=== PATIENT | male | born 1950 | race Caucasian/White ===

== ENCOUNTER → 2017-03-14 18:50 | Outpatient (CLI) | payer MEDICARE ==
[2016-10-05 11:31] VITALS: BMI 45.5
[~2017-03-14 18:50] MED LIST: ASCORBIC ACID500 MG PO; BAYER CHEWABLE81 MG PO; CHROMIUM PICO200 MC1; CITRATE OF MAG300 ML PO; CO Q-10100 MG PO; COLACE100 MG PO; GAS-X125 M1; GLYCERIN A1 SUPP.REC RC; GLYCOLAX527 GM PO; HYDROCHLOROTH12.5 M1 PO; HYDROCODONE-APA1 TAB PO; LASIX40 MG PO; LISINOPRIL5 MG PO; METOLAZONE2.5 MG PO; METOPROLOL TART50 MG; NIACIN500 MG PO; NORVASC10 MG PO; NORVASC5 MG PO; NOVOLIN 70/30 110 ML; PRAVACHOL20 MG PO; PREVACID30 MG PO; STOOL SOFTENER250 MG PO; TOPROL XL50 MG PO; VITAMIN D2000 UNIT PO; ZANTAC150 MG PO; ZESTRIL40 MG PO; ZYLOPRIM300 MG PO
[2017-03-14 19:54] LABS: ANION GAP 13.4 mmol/L (8-16); CALCIUM 9.8 mg/dL (8.5-10.1); CARBON DIOXIDE 27.2 mmol/L (21.0-32.0); CREATININE - SERUM 2.2 mg/dL (0.6-1.3); POTASSIUM - SERUM 4.6 mmol/L (3.5-5.1)
== END | disposition home or self-care (01) ==
LOC: D.LABREF 18:50
PROVIDERS: Internal Medicine Cardiovascular Disease
DX: I10 Essential (primary) hypertension (principal)

== ENCOUNTER 2017-03-23 12:21 | Inpatient (IN) | payer MEDICARE ==
[~2017-03-23] VITALS: Ht 180.3 cm; Wt 147.0 kg
[2017-03-23 13:23] LABS: BASOPHILS 0.4 % (0-2); EOSINOPHILS 1.5 % (0-7); HEMATOCRIT 41.3 % (42.0-54.0); HEMOGLOBIN 14.2 g/dL (13.5-17.5); IMMATURE GRANULOCYTES 3.1 % (0-5); MCH 32.7 pg (26.0-34.0); MCHC 34.4 g/dL (31.0-37.0); MCV 95.2 fL (80.0-100.0); MEAN PLATELET VOLUME 9.8 fL (7.4-10.4); MONOCYTES 9.1 % (2-11); NEUTROPHILS 70.9 % (40-80); PLATELET COUNT 197 10x3/uL (130-400); RBC 4.34 10x6/uL (4.20-6.10); RDW 15.1 % (11.5-14.5); WBC 14.7 10x3/uL (4.8-10.8)
[2017-03-23 13:35] LABS: ALBUMIN 3.4 g/dL (3.4-5.0); ANION GAP 15.4 mmol/L (8-16); CARBON DIOXIDE 24.8 mmol/L (21.0-32.0); CREATININE - SERUM 2.5 mg/dL (0.6-1.3); POTASSIUM - SERUM 4.2 mmol/L (3.5-5.1); PROTEIN - SERUM 7.7 g/dL (6.4-8.2)
[2017-03-23 17:45] LABS: APPEARANCE CLEAR (CLEAR); BILIRUBIN NEGATIVE (NEGATIVE); COLOR YELLOW (YELLOW); GLUCOSE NEGATIVE (NEGATIVE); KETONE NEGATIVE (NEGATIVE); LEUKOCYTE ESTERASE 1+ (NEGATIVE); NITRITE NEGATIVE (NEGATIVE); PROTEIN NEGATIVE (NEGATIVE); SPECIFIC GRAVITY 1.015 (1.005-1.020); UROBILINOGEN NORMAL (NORMAL)
[2017-03-23 17:47] LABS: BACTERIA NONE SEEN /hpf (NONE SEEN); EPITHELIAL CELLS 0-5 /hpf (0-5); RED CELLS - URINE NONE SEEN /hpf (0-5); WHITE CELLS - URINE 0-5 /hpf (0-5)
[2017-03-23 18:15] LABS: MAGNESIUM - SERUM 2.4 mg/dL (1.8-2.4)
[2017-03-23 19:31] LABS: ANION GAP 15.8 mmol/L (8-16); CALCIUM 9.9 mg/dL (8.5-10.1); CARBON DIOXIDE 24.2 mmol/L (21.0-32.0); CREATININE - SERUM 2.7 mg/dL (0.6-1.3)
[2017-03-23 20:00] VITALS: BP 118/67
[2017-03-23 22:45] VITALS: BP 118/67; BMI 44.7
[2017-03-24] VITALS: BP 108/66
[2017-03-24 04:00] VITALS: BP 127/69
--- NOTE | 2017-03-24 07:50 | NUR ---
PT AOX4 RESP EVEN AND NONLABORED PT DENIES NEEDS AT THIS TIME IV TO LEFT HAND PATENT AND INTACT AT THIS TIME SRX2 BED AT LOWEST SETTING CALL LIGHT WITHIN REACH WILL CONTINUE TO MONITOR
[2017-03-24 08:18] VITALS: BP 128/65
[2017-03-24] MEDS ORDERED: XARELTO15 MG PO (11:32)
[2017-03-24] MEDS ORDERED: XARELTO10 MG PO (11:32)
[2017-03-24] MEDS ORDERED: BETAPACE 80 MG80 MG PO (11:34)
[2017-03-24] MEDS ORDERED: AVODART0.5 MG PO (11:37)
[2017-03-24] MEDS ORDERED: METOLAZONE2.5 MG PO (11:38)
[2017-03-24] MEDS ORDERED: BACLOFEN10 MG PO (11:38)
[2017-03-24 13:06] VITALS: Ht 180.3 cm; Wt 147.0 kg
[2017-03-24 13:25] VITALS: BP 134/64
[2017-03-24 16:01] VITALS: BP 106/61
[2017-03-24 20:00] VITALS: BP 126/77
[2017-03-25] VITALS: BP 130/73
[2017-03-25 04:13] VITALS: BP 129/72
[2017-03-25 08:23] VITALS: BP 131/74
[2017-03-25 09:04] LABS: BASOPHILS 0.5 % (0-2); EOSINOPHILS 3.4 % (0-7); HEMOGLOBIN 12.9 g/dL (13.5-17.5); IMMATURE GRANULOCYTES 2.5 % (0-5); LYMPHOCYTES 20.5 % (15-50); MCH 31.8 pg (26.0-34.0); MCHC 33.1 g/dL (31.0-37.0); MCV 96.1 fL (80.0-100.0); MEAN PLATELET VOLUME 9.7 fL (7.4-10.4); MONOCYTES 10.6 % (2-11); NEUTROPHILS 62.5 % (40-80); PLATELET COUNT 175 10x3/uL (130-400); RBC 4.06 10x6/uL (4.20-6.10); RDW 15.3 % (11.5-14.5)
[2017-03-25 09:24] LABS: ALBUMIN 3.1 g/dL (3.4-5.0); BILIRUBIN - TOTAL 0.9 mg/dL (0.2-1.3); CALCIUM 9.7 mg/dL (8.5-10.1); CARBON DIOXIDE 24.8 mmol/L (21.0-32.0); CREATININE - SERUM 2.1 mg/dL (0.6-1.3); MAGNESIUM - SERUM 2.4 mg/dL (1.8-2.4); PHOSPHOROUS 4.2 mg/dL (2.5-4.9); POTASSIUM - SERUM 4.8 mmol/L (3.5-5.1); PROTEIN - SERUM 7.1 g/dL (6.4-8.2)
[2017-03-25 09:25] LABS: WBC 10.1 10x3/uL (4.8-10.8)
--- NOTE | 2017-03-25 11:12 | NUR ---
PT AOX4 RESP EVEN AND NONLABORED PT DENIES NEEDS AT THIS TIME IV TO LEFT HAND PATENT AND INTACT SRX2 BED AT LOWEST SETTING CALL LIGHT WITHIN REACH WILL CONTINUE TO MONITOR
[2017-03-25 12:55] VITALS: BP 124/69
[2017-03-25 16:00] VITALS: BP 154/77
[2017-03-25 19:00] VITALS: BP 110/69
--- NOTE | 2017-03-25 19:15 | NUR ---
RECIEVED SHIFT REPORT. PT IS LYING IN BED. ALERT AND ORIENTED AND ABLE TO VERBALIZE NEEDS. PT IS AMBULATORY BUT WAS INSTRUCTED TO CALL FOR ANY ASSISTANCE NEEDED. IV IS PATENT AND SALINE LOC AT THIS TIME. PT STATES PAIN IS 2/10. NO NEEDS ARE VERBALIZED AT THIS TIME. WILL CONTINUE TO MONITOR. SIDE RAILS ARE UP X 2. BED IS IN LOWEST POSITION. CALL LIGHT IS WITHIN REACH.
--- NOTE | 2017-03-25 21:07 | NUR ---
SHIFT ASSESSMENT COMPLETED. NIGHT MEDS GIVEN WITH NO PROBLEMS. PT RECIEVED NO INSULIN PER SLIDING SCALE FOR JYYQ=890. PT REQUESTING PRN BACLOFEN. ADMINISTERED PER ORDER. DENIES FURTHER NEEDS. WILL MONITOR. SIDE RAILS X 2. BED LOW. CALL LIGHT IN REACH.
[2017-03-26] VITALS: BP 144/72
[2017-03-26 04:00] VITALS: BP 135/56
[2017-03-26 04:55] LABS: BASOPHILS 0.4 % (0-2); EOSINOPHILS 3.7 % (0-7); HEMATOCRIT 38.1 % (42.0-54.0); HEMOGLOBIN 12.7 g/dL (13.5-17.5); IMMATURE GRANULOCYTES 2.3 % (0-5); LYMPHOCYTES 21.3 % (15-50); MCHC 33.3 g/dL (31.0-37.0); MEAN PLATELET VOLUME 9.9 fL (7.4-10.4); MONOCYTES 12.5 % (2-11); NEUTROPHILS 59.8 % (40-80); PLATELET COUNT 177 10x3/uL (130-400); RBC 3.97 10x6/uL (4.20-6.10)
[2017-03-26 05:05] LABS: ANION GAP 11.5 mmol/L (8-16); CALCIUM 9.6 mg/dL (8.5-10.1); CARBON DIOXIDE 26.2 mmol/L (21.0-32.0); CREATININE - SERUM 1.9 mg/dL (0.6-1.3); POTASSIUM - SERUM 4.7 mmol/L (3.5-5.1)
--- NOTE | 2017-03-26 07:30 | NUR ---
PT ASSESSMENT COMPLETE ON WALKING ROUNDS PT AWAKE AND ALERT ORINTED X 3 LUNGS CLAER BILATERALLY HAS DISTENDED ABDOMEN NON TENDER BS HYPOACTIVE.
[2017-03-26 08:27] VITALS: BP 138/77
--- NOTE | 2017-03-26 09:10 | NUR ---
PATIENT ALERT IN MID GONCALVES POSITION. RESPIRATIONS EVEN AND UNLABORED. SIDE RAILS UP X2. BED IN LOW POSITION. CALL LIGHT IN REACH.
--- NOTE | 2017-03-26 11:27 | NUR ---
Patient Name: TRUPTI GRIFFITH Admission Status: ER Accout number: [id number] Admission Date: 03-25-2017 : 1950 Admission Diagnosis: Attending: TRACEY Current LOS: 1 Anticipated DC Date: 03-27-2017 Planned Disposition: Home Primary Insurance: [employer] CHOICE PPO MCR ADVANT Discharge Planning Comments: CM MET WITH PATIENT REGARDING D/C NEEDS AND PLANS. PATIENT STATED HE LIVES WITH HIS STEPDAUGHTER (GASTON SERRANO) AND HER . PATIENT IS PLANNING ON DRIVING HIMSELF HOME BUT IF NOT HE COULD GET A RIDE. PATIENT IS INDEPENDENT AND HAS A GLUCOMETER AND WALKER AT HOME. PATIENT CHECKS HIS SUGAR DAILY. PATIENTS PCP IS DR. CONTE AND PHARMACY IS [facility]. ON [address] PATIENT DOES NOT WANT HOME HEALTH. CM WILL CONTINUE TO FOLLOW PATIENT WITH D/C NEEDS AND PLANS. PCP DR. CONTE [facility]. - [phone] GASTON SERRANO (STEPDAUGHTER) [phone] Potato Grader: Ana Tapia Is the patient Alert and Oriented? Yes 0 * How many steps to enter\exit or inside your home? 0 0 * PCP DR. CONTE 0 * Pharmacy [facility]. ON [address] * Preadmission Environment Home with Family 0 * ADLs Independent 0 * Equipment Glucometer 0 * List name and contact numbers for known caregivers / representatives who currently or will assist patient after discharge: GASTON SERRANO (STEP DAUGHTER) [phone] * Community resources currently utilized None 0 * Additional services required to return to the preadmission environment? Yes 0 * Can the patient safely return to the preadmission environment? Yes 0 * Has this patient been hospitalized within the prior 30 days at any hospital? No 0 Grand Total: 0
[2017-03-26 11:39] VITALS: BP 148/79
--- NOTE | 2017-03-26 14:25 | NUR ---
NO ACUTE DISTRESS NOTED VOICES ALL NEEDS TO STAFF CALL LIGHT IN REACH
--- NOTE | 2017-03-26 14:46 | NUR ---
NUTRITION MONITORING & EVAL CHART REVIEWED, PT VISIT. TOLERATING RENAL ADA DIET, 100% INTAKE RECENT MEALS. WILL CONTINUE TO PROVIDE DIET, MONITOR PO INTAKE. RD FOLLOWING
[2017-03-26 16:13] VITALS: BP 144/79
[2017-03-26 18:00] VITALS: BP 142/75
--- NOTE | 2017-03-26 19:20 | NUR ---
RECIEVED SHIFT REPORT. PT IS LYING IN BED. ALERT AND ORIENTED AND ABLE TO VERBALIZE NEEDS. IV IS PATENT AND SALINE LOC AT THIS TIME. PT IS AMBULATORY BUT WAS INSTRUCTED TO CALL FOR ANY ASSISTANCE NEEDED. PT STATES PAIN IS 3/10. NO NEEDS ARE VERBALIZED AT THIS TIME. WILL CONTINUE TO MONITOR. SIDE RAILS ARE UP X 2. BED IS IN LOWEST POSITION. CALL LIGHT IS WITHIN REACH.
--- NOTE | 2017-03-26 21:11 | NUR ---
SHIFT ASSESSMENT COMPLETED. NIGHT MEDS GIVEN WITH NO PROBLEMS. PT RECIEVED NO INSULIN PER SLIDING SCALE FOR DDOH=659. PT C/O PAIN 03/31. ADMINISTERED PRESCRIBED PRN NORCO PER ORDER. DENIES FURTHER NEEDS. WILL MONITOR. SIDE RAILS X 2. BED LOW. CALL LIGHT IN REACH.
[2017-03-27 04:00] VITALS: BP 137/78
[2017-03-27 05:02] LABS: BASOPHILS 0.4 % (0-2); EOSINOPHILS 3.4 % (0-7); HEMATOCRIT 38.1 % (42.0-54.0); HEMOGLOBIN 12.7 g/dL (13.5-17.5); IMMATURE GRANULOCYTES 2.1 % (0-5); LYMPHOCYTES 20.5 % (15-50); MCHC 33.3 g/dL (31.0-37.0); MEAN PLATELET VOLUME 9.7 fL (7.4-10.4); MONOCYTES 12.3 % (2-11); NEUTROPHILS 61.3 % (40-80); PLATELET COUNT 170 10x3/uL (130-400); RBC 3.97 10x6/uL (4.20-6.10); RDW 15.1 % (11.5-14.5); WBC 11.8 10x3/uL (4.8-10.8)
[2017-03-27 05:42] LABS: ALBUMIN 3.1 g/dL (3.4-5.0); ANION GAP 11.7 mmol/L (8-16); BILIRUBIN - TOTAL 0.89 mg/dL (0.2-1.3); CARBON DIOXIDE 26.2 mmol/L (21.0-32.0); CREATININE - SERUM 1.6 mg/dL (0.6-1.3); POTASSIUM - SERUM 4.9 mmol/L (3.5-5.1); PROTEIN - SERUM 7.1 g/dL (6.4-8.2)
[2017-03-27 06:19] LABS: ERYTHROCYTE SEDIMENTATION RATE 43 mm/hr (0-20)
[2017-03-27 08:48] VITALS: BP 133/73
--- NOTE | 2017-03-27 10:33 | NUR ---
PATIENT IS SITTING UP ON THE SIDE OF THE BED. NO SIGNS OF DISTRESS NOTED. ROOM AIR. BED IN LOWEST POSITION, CALL LIGHT IN REACH. NO SIGNS OF DISTRESS NOTED.
[2017-03-27 12:35] VITALS: BP 134/79
--- NOTE | 2017-03-27 15:06 | EC ---
PATIENT:TRUPTI GRIFFITH DATE OF SERVICE: 03/25/17 SEX: M MEDICAL RECORD: [id number] DATE OF : [birth year] LOCATION:[facility] AGE OF PATIENT: 66 ADMISSION DATE: 03/25/17 REFERRING PHYSICIAN: INTERPRETING PHYSICIAN: HELADIO KING M.D. ECHOCARDIOGRAM REPORT ECHO CHARGES 4 ECHO COMPLETE CLINICAL DIAGNOSIS: AFIB/CHF HX PACEMAKER ECHOCARDIOGRAPHIC MEASUREMENTS (adult normal given) AC root (d.<3.7cm) 4.7 LV Septum d (<1.2 cm> 1.6 Valve Excursion 2.1 LV Septum (systole) 2.0 Left Atria (s.<4.0cm> 4.8 LVPW d(<1.2cm) 1.8 RV (d.<2.3cm) 4.7 LVPW (sytole) 2.1 LV diastole(<5.6CM) 5.2 MV E-F(>70mm/sec) LV systole 3.4 LVOT Diameter 2.1 MV exc.(>10mm) 2.3 Est.ejection fraction (50-75%) Pericardial Effusion N DOPPLER: LVIT A 33.0 E 101 LA RVSP 36 LVOT AOP1/2T Asc. Ao RVOT 89 RA PA 112 AV Gradient Peak AV Mean AV Area MV Gradient Peak 5.52 MV Mean 1.72 MV Area COMMENTS: Dairy Processing Supervisor: Kristin GOMEZ Materials Manager:Kristin King TAPE# PACS DATE OF SERVICE: 03/26/2017 INDICATION: AFib. DESCRIPTION: Left ventricle demonstrates left ventricular hypertrophy. No wall motion abnormalities are noted. Estimated ejection fraction is lower than its normal around 50%. Mitral valve is structurally normal. There is mild regurgitation seen. Left atrium is moderately dilated. The aortic valve is trileaflet. There is no stenosis or regurgitation seen. Right ventricle is moderately dilated. Tricuspid valve is structurally normal. There is mild ECHOCARDIOGRAM REPORT [id number] TRUPTI GRIFFITH regurgitation seen. Right atrium is normal size. There is no pericardial effusion noted. IMPRESSION: 1. Left ventricular hypertrophy with preserved ejection fraction of 50%. 2. Mild mitral regurgitation. 3. Mild tricuspid regurgitation. TRANSINT:[id number] Voice Confirmation ID: [id number] DOCUMENT ID: [id number] HELADIO KING M.D. at 1506 CC: [id number] DICTATION DATE: 03/26/17 1225 TEACHER HOME THERAPY: 03/26/172027 ADM IN [place] [id number] [place] [id number]
[2017-03-27 17:02] VITALS: BP 115/73
--- NOTE | 2017-03-27 19:20 | NUR ---
RECIEVED SHIFT REPORT. PT IS LYING IN BED. ALERT AND ORIENTED AND ABLE TO VERBALIZE NEEDS. IV IS PATENT AND SALINE LOC AT THIS TIME. PT IS AMBULATORY BUT WAS INSTRUCTED TO CALL FOR ANY ASSISTANCE NEEDED. PT STATES PAIN IS 2/10. NO NEEDS ARE VERBALIZED AT THIS TIME. WILL CONTINUE TO MONITOR. SIDE RAILS ARE UP X 2. BED IS IN LOWEST POSITION. CALL LIGHT IS WITHIN REACH.
--- NOTE | 2017-03-27 20:44 | NUR ---
SHIFT ASSESSMENT COMPLETED. NIGHT MEDS GIVEN WITH NO PROBLEMS. PT RECIEVED NO INSULIN PER SLIDING SCALE FOR FSBS=88. PT REQUESTING PRN BACLOFEN. ADMINISTERED PER ORDER. DENIES FURTHER NEEDS. WILL MONITOR. SIDE RAILS X 2. BED LOW. CALL LIGHT IN REACH.
[2017-03-28 00:04] VITALS: BP 129/73
[2017-03-28 04:00] VITALS: BP 126/66
--- NOTE | 2017-03-28 07:11 | NUR ---
PATIENT IS RESTING QUIETLY IN HIS BED. EYES ARE CLOSED. SNORING NOTED. NO S/S OF DISTRESS NOTED. CALL LIGHT IN PATIENT'S REACH. WILL MONITOR PATIENT.
[2017-03-28 08:39] VITALS: BP 144/75
[2017-03-28 10:13] LABS: ANION GAP 10.3 mmol/L (8-16); CALCIUM 9.8 mg/dL (8.5-10.1); CARBON DIOXIDE 26.3 mmol/L (21.0-32.0); CREATININE - SERUM 1.4 mg/dL (0.6-1.3); POTASSIUM - SERUM 4.6 mmol/L (3.5-5.1)
[2017-03-28 10:40] LABS: BASOPHILS 0.5 % (0-2); EOSINOPHILS 3.2 % (0-7); HEMOGLOBIN 12.4 g/dL (13.5-17.5); IMMATURE GRANULOCYTES 2.3 % (0-5); MCH 31.7 pg (26.0-34.0); MCHC 32.6 g/dL (31.0-37.0); MCV 97.2 fL (80.0-100.0); MEAN PLATELET VOLUME 10.3 fL (7.4-10.4); MONOCYTES 10.3 % (2-11); NEUTROPHILS 61.7 % (40-80); PLATELET COUNT 173 10x3/uL (130-400); RBC 3.91 10x6/uL (4.20-6.10); RDW 15.2 % (11.5-14.5); WBC 10.9 10x3/uL (4.8-10.8)
--- NOTE | 2017-03-28 11:11 | NUR ---
PATIENT RESTING IN THE BED. FSBS IS 116. NO SLIDING SCALE INSULIN REQUIRED AT THIS TIME. PATIENT DENIES ANY NEEDS AT PRESENT TIME. CALL LIGHT IN PATIENT'S REACH. WILL MONITOR PATIENT.
[2017-03-28 13:22] VITALS: BP 143/78
--- NOTE | 2017-03-28 13:47 | NUR ---
Rehab Prescreening Consult recieved and the chart has been reviewed. He is [employer] MCR and will require a preauthorization for the IRF. [employer] will require a PT and OT eval with the request and none has been ordered. Spoke to Clay Rivas RN CM re this. Once they are completed information will be faxed for Fei's review. La Man RN Clinical Liaison, Rehab
--- NOTE | 2017-03-28 13:58 | NUR ---
PATIENT RESTING IN HIS BED. SCHEDULED LASIX 40 MG PO GIVEN TO PATIENT. DR. GONZALEZ HERE TO SEE PATIENT. CALL LIGHT IN PATIENT'S REACH.
--- NOTE | 2017-03-28 17:24 | NUR ---
OT NOTE: PT COMPLETED BUE AROM AND STRENGTHENING AXS FOR INCREASED I. PT COMPLETED BED MOB WITH CGA. THANK YOU, HANK WARE/Cheryl
[2017-03-28 17:30] VITALS: BP 133/73
--- NOTE | 2017-03-28 19:20 | NUR ---
RECIEVED SHIFT REPORT. PT IS LYING IN BED. ALERT AND ORIENTED AND ABLE TO VERBALIZE NEEDS. IV IS PATENT AND SALINE LOC. PT IS AMBULATORY BUT WAS INSTRUCTED TO CALL FOR ANY ASSISTANCE NEEDED. PT STATES PAIN IS 2/10. PLEXI BOOTS ON AT THIS TIME. NO NEEDS ARE VERBALIZED AT THIS TIME. WILL CONTINUE TO MONITOR. SIDE RAILS ARE UP X 2. BED IS IN LOWEST POSITION. CALL LIGHT IS WITHIN REACH.
[2017-03-28 20:00] VITALS: BP 157/78
--- NOTE | 2017-03-28 21:24 | NUR ---
SHIFT ASSESSMENT COMPLETED. NIGHT MEDS GIVEN WITH NO PROBLEMS. PT REQUEST PRN BACLOFEN. ADMINISTERED PER ORDER. PT RECIEVED NO INSULIN PER SLIDING SCALE FOR QTQB=758. DENIES FURTHER NEEDS AT THIS TIME. WILL MONITOR. SIDE RAILS X 2. BED LOW. TARIQ LIGHT IN REACH.
[2017-03-29] VITALS: BP 147/79
[2017-03-29 04:00] VITALS: BP 149/73
[2017-03-29 05:36] LABS: BASOPHILS 0.5 % (0-2); EOSINOPHILS 3.2 % (0-7); HEMATOCRIT 39.4 % (42.0-54.0); HEMOGLOBIN 12.9 g/dL (13.5-17.5); IMMATURE GRANULOCYTES 2.3 % (0-5); LYMPHOCYTES 19.8 % (15-50); MCH 31.7 pg (26.0-34.0); MCHC 32.7 g/dL (31.0-37.0); MCV 96.8 fL (80.0-100.0); MEAN PLATELET VOLUME 9.9 fL (7.4-10.4); MONOCYTES 11.6 % (2-11); NEUTROPHILS 62.6 % (40-80); PLATELET COUNT 178 10x3/uL (130-400); RBC 4.07 10x6/uL (4.20-6.10); RDW 15.2 % (11.5-14.5); WBC 12.3 10x3/uL (4.8-10.8)
[2017-03-29 06:02] LABS: ANION GAP 13.9 mmol/L (8-16); CALCIUM 10.1 mg/dL (8.5-10.1); CARBON DIOXIDE 25.5 mmol/L (21.0-32.0); CREATININE - SERUM 1.5 mg/dL (0.6-1.3); POTASSIUM - SERUM 4.4 mmol/L (3.5-5.1)
--- NOTE | 2017-03-29 07:30 | NUR ---
RECIEVED PT DURING WALKING ROUNDS. PT RESTING COMFORTABLY AT THE SIDE OF THE BED, NO COMPLAINTS OF PAIN OR DISCOMFORT AT THIS TIME. ASSESSMENT DONE PER FLOWSHEET. BED IN LOW POSITION AND CALL LIGHT WITHIN REACH. WILL CONTINUE TO MONITOR.
[2017-03-29 08:28] VITALS: BP 150/80
--- NOTE | 2017-03-29 08:35 | NUR ---
PT COMPLAINS ABOUT IV BOTHERING HIM, THE IV WAS ALMOST OUT OF INSERTION SITE, DC'D IV WITH CATH INTACT AT THIS TIME, WILL RESITE AT A LATER TIME. BED IN LOW POSITION AND CALL LIGHT WITHIN REACH, WILL CONTINUE TO MONITOR.
--- NOTE | 2017-03-29 10:04 | NUR ---
PT walked the patient 60 feet and then signed off. OT evaluated the patient and documented no need for in-patient rehab. With this being documented it would be senseless to request a preauthorization for acute rehab from [facility]. Informed the CM Ana Rivas RN. La Man RN CL
--- NOTE | 2017-03-29 11:20 | NUR ---
CM REASSESSMENT NOTE: PATIENT IS DISCHARGING HOME TODAY-FRIEND OR FAMILY WILL DRIVE HIM. PATIENT SIGNED THE [facility] WITH [facility] AND THEY ARE AWARE OF DISCHARGE TODAY.
[2017-03-29 12:46] VITALS: BP 163/79
[2017-03-29] MEDS ORDERED: LASIX40 MG PO (14:30)
--- NOTE | 2017-03-29 16:40 | NUR ---
PT DISCHARGED VIA WHEELCHAIR TO HOME AT THIS TIME, DISCHARGE INSTRUCTIONS GIVEN.
== END 2017-03-29 16:40 | disposition home health service (06) | DRG 683 ==
LOC: D.ER 12:21 → D.MS 19:13 → OBSVTIME 19:13 → D.MS 19:13
PROVIDERS: Emergency Medicine; Family Medicine; Internal Medicine Nephrology; ADMIT Family Medicine
DX: N17.9 Acute kidney failure, unspecified (principal); E87.1 Hypo-osmolality and hyponatremia; Z68.41 Body mass index [BMI] 40.0-44.9, adult; E87.5 Hyperkalemia; E87.6 Hypokalemia; E11.22 Type 2 diabetes mellitus with diabetic chronic kidney disease; I12.9 Hypertensive chronic kidney disease with stage 1 through stage 4 chronic kidney disease, or unspecified chronic kidney disease; N18.3 Chronic kidney disease, stage 3 (moderate); I48.0 Paroxysmal atrial fibrillation; E11.40 Type 2 diabetes mellitus with diabetic neuropathy, unspecified; Z95.0 Presence of cardiac pacemaker; K59.00 Constipation, unspecified; E66.01 Morbid (severe) obesity due to excess calories; E11.42 Type 2 diabetes mellitus with diabetic polyneuropathy

== ENCOUNTER 2017-03-31 22:41 | Emergency (ER) | payer MEDICARE ==
[2017-03-24 13:06] VITALS: BMI 44.6
[~2017-03-31 22:41] MED LIST changes: +AVODART0.5 MG PO; +BACLOFEN10 MG PO; +BETAPACE 80 MG80 MG PO; +XARELTO10 MG PO; +XARELTO15 MG PO
[2017-03-31 23:05] LABS: BASOPHILS 0.6 % (0-2); EOSINOPHILS 4.7 % (0-7); HEMATOCRIT 39.8 % (42.0-54.0); HEMOGLOBIN 13.2 g/dL (13.5-17.5); IMMATURE GRANULOCYTES 3.7 % (0-5); LYMPHOCYTES 20.3 % (15-50); MCH 32.4 pg (26.0-34.0); MCHC 33.2 g/dL (31.0-37.0); MCV 97.5 fL (80.0-100.0); MEAN PLATELET VOLUME 9.8 fL (7.4-10.4); MONOCYTES 11.3 % (2-11); NEUTROPHILS 59.4 % (40-80); PLATELET COUNT 171 10x3/uL (130-400); RBC 4.08 10x6/uL (4.20-6.10); RDW 15.4 % (11.5-14.5); WBC 11.7 10x3/uL (4.8-10.8)
[2017-03-31 23:16] LABS: INR 1.95 (0.85-1.17); PROTIME 22.2 SECONDS (11.6-15.0)
== END 2017-04-01 00:05 | disposition home or self-care (01) ==
LOC: D.ER 22:41
PROVIDERS: Emergency Medicine
DX: R04.0 Epistaxis (principal)

== ENCOUNTER 2017-10-12 12:00 | Observation (INO) | payer MEDICARE ==
[~2017-10-12] VITALS: Ht 180.3 cm; Wt 131.5 kg
[~2017-10-12 12:00] MED LIST changes: -NOVOLIN 70/30 110 ML; +NOVOLIN 70/30 110 ML SC
[2017-10-12 12:39] LABS: APPEARANCE HAZY (CLEAR); COLOR YELLOW (YELLOW)
[2017-10-12 12:40] LABS: BACTERIA FEW /hpf (NONE SEEN); BILIRUBIN NEGATIVE (NEGATIVE); EPITHELIAL CELLS OCC /hpf (0-5); GLUCOSE NEGATIVE (NEGATIVE); KETONE NEGATIVE (NEGATIVE); NITRITE NEGATIVE (NEGATIVE); PROTEIN 1+ mg/dL (NEGATIVE); RED CELLS - URINE RARE /hpf (0-5); UROBILINOGEN NORMAL (NORMAL); WHITE CELLS - URINE OCC /hpf (0-5)
[2017-10-12 12:44] LABS: BASOPHILS 0.2 % (0-2); HEMATOCRIT 45.1 % (42.0-54.0); HEMOGLOBIN 15.1 g/dL (13.5-17.5); LYMPHOCYTES 14.7 % (15-50); MCH 31.5 pg (26.0-34.0); MCHC 33.5 g/dL (31.0-37.0); MEAN PLATELET VOLUME 10.9 fL (7.4-10.4); MONOCYTES 9.5 % (2-11); NEUTROPHILS 65.6 % (40-80); WBC 17.5 10x3/uL (4.8-10.8)
[2017-10-12 12:49] LABS: PLATELET COUNT 213 10x3/uL (130-400)
[2017-10-12 12:59] LABS: ALBUMIN 3.3 g/dL (3.4-5.0); ANION GAP 13.4 mmol/L (8-16); BILIRUBIN - TOTAL 1.08 mg/dL (0.2-1.3); CALCIUM 9.8 mg/dL (8.5-10.1); CARBON DIOXIDE 27.7 mmol/L (21.0-32.0); CREATININE - SERUM 1.9 mg/dL (0.6-1.3); POTASSIUM - SERUM 3.1 mmol/L (3.5-5.1); PROTEIN - SERUM 7.7 g/dL (6.4-8.2)
[2017-10-12] MEDS ORDERED: NOVOLIN 70/30 110 ML SC (17:50)
[2017-10-12] MEDS ORDERED: TOPROL XL100 MG PO (17:53)
[2017-10-12] MEDS ORDERED: ROBAXIN500 MG PO (17:53)
[2017-10-12 17:57] VITALS: BP 145/73; BMI 40.5
[2017-10-12 19:56] VITALS: BP 144/67
[2017-10-12 23:32] VITALS: BP 132/79
[2017-10-13 03:30] VITALS: BP 142/75
[2017-10-13 05:18] LABS: BASOPHILS 0.3 % (0-2); EOSINOPHILS 10.2 % (0-7); HEMATOCRIT 40.6 % (42.0-54.0); HEMOGLOBIN 13.3 g/dL (13.5-17.5); LYMPHOCYTES 20.4 % (15-50); MCH 31.1 pg (26.0-34.0); MCHC 32.8 g/dL (31.0-37.0); MCV 95.1 fL (80.0-100.0); MEAN PLATELET VOLUME 10.7 fL (7.4-10.4); MONOCYTES 11.2 % (2-11); NEUTROPHILS 55.9 % (40-80); PLATELET COUNT 193 10x3/uL (130-400); RBC 4.27 10x6/uL (4.20-6.10); RDW 17.2 % (11.5-14.5); WBC 13.5 10x3/uL (4.8-10.8)
[2017-10-13 05:37] LABS: ALBUMIN 2.8 g/dL (3.4-5.0); ANION GAP 10.6 mmol/L (8-16); BILIRUBIN - TOTAL 1.2 mg/dL (0.2-1.3); CALCIUM 9.4 mg/dL (8.5-10.1); CARBON DIOXIDE 27.3 mmol/L (21.0-32.0); CREATININE - SERUM 1.6 mg/dL (0.6-1.3); PROTEIN - SERUM 6.8 g/dL (6.4-8.2)
[2017-10-13 05:42] LABS: POTASSIUM - SERUM 2.9 mmol/L (3.5-5.1)
[2017-10-13 07:03] VITALS: BP 151/64
[2017-10-13 11:10] VITALS: BP 128/74
[2017-10-13 12:07] LABS: MAGNESIUM - SERUM 1.7 mg/dL (1.8-2.4); PHOSPHOROUS 2.8 mg/dL (2.5-4.9)
[2017-10-13 14:58] VITALS: BP 150/80
[2017-10-13 20:00] VITALS: BP 162/78
[2017-10-14] VITALS: BP 150/85
[2017-10-14 06:11] LABS: BASOPHILS 0.3 % (0-2); EOSINOPHILS 11.3 % (0-7); HEMATOCRIT 42.2 % (42.0-54.0); HEMOGLOBIN 13.8 g/dL (13.5-17.5); IMMATURE GRANULOCYTES 2.7 % (0-5); MCH 31.1 pg (26.0-34.0); MCHC 32.7 g/dL (31.0-37.0); MEAN PLATELET VOLUME 10.9 fL (7.4-10.4); MONOCYTES 10.4 % (2-11); NEUTROPHILS 56.3 % (40-80); PLATELET COUNT 194 10x3/uL (130-400); RBC 4.44 10x6/uL (4.20-6.10); RDW 17.2 % (11.5-14.5); WBC 12.7 10x3/uL (4.8-10.8)
[2017-10-14 06:28] LABS: ALBUMIN 2.8 g/dL (3.4-5.0); ANION GAP 12.7 mmol/L (8-16); BILIRUBIN - TOTAL 0.8 mg/dL (0.2-1.3); CALCIUM 9.2 mg/dL (8.5-10.1); CARBON DIOXIDE 24.6 mmol/L (21.0-32.0); CREATININE - SERUM 1.2 mg/dL (0.6-1.3); POTASSIUM - SERUM 3.3 mmol/L (3.5-5.1); PROTEIN - SERUM 6.8 g/dL (6.4-8.2)
[2017-10-14 08:37] VITALS: BP 143/74
[2017-10-14 09:43] VITALS: Ht 180.3 cm; Wt 131.5 kg
[2017-10-14] MEDS ORDERED: FLAGYL500 MG PO (10:50)
[2017-10-14] MEDS ORDERED: LEVAQUIN500 MG PO (10:50)
[2017-10-14] MEDS ORDERED: FLORAJEN3 CAPS460 MG PO (10:51)
== END 2017-10-14 16:00 | disposition home health service (06) ==
LOC: D.ER 12:00 → OBSVTIME 17:15 → D.MS 17:15
PROVIDERS: Family Medicine; ADMIT Emergency Medicine
DX: R10.9 Unspecified abdominal pain (principal); N17.9 Acute kidney failure, unspecified; E86.0 Dehydration; K52.9 Noninfective gastroenteritis and colitis, unspecified; K57.92 Diverticulitis of intestine, part unspecified, without perforation or abscess without bleeding; E87.1 Hypo-osmolality and hyponatremia; E11.22 Type 2 diabetes mellitus with diabetic chronic kidney disease; E11.65 Type 2 diabetes mellitus with hyperglycemia; I12.9 Hypertensive chronic kidney disease with stage 1 through stage 4 chronic kidney disease, or unspecified chronic kidney disease; N18.3 Chronic kidney disease, stage 3 (moderate); I48.91 Unspecified atrial fibrillation; E87.6 Hypokalemia; R53.1 Weakness; C61 Malignant neoplasm of prostate

== ENCOUNTER 2018-10-25 13:48 | Emergency (ER) | payer MEDICARE ==
[~2018-10-25] VITALS: Ht 180.3 cm; Wt 136.4 kg
[~2018-10-25 13:48] MED LIST changes: +FLAGYL500 MG PO; +FLORAJEN3 CAPS460 MG PO; +GABAPENTIN100 MG PO; +K-TAB10 MEQ PO; +LEVAQUIN500 MG PO; +METOPROLOL TART50 MG PO; +ROBAXIN500 MG PO; +TOPROL XL100 MG PO
[2018-10-25 13:51] VITALS: Ht 180.3 cm; Wt 136.4 kg
[2018-10-25 15:55] LABS: APPEARANCE CLEAR (CLEAR); COLOR YELLOW (YELLOW); NITRITE NEGATIVE (NEGATIVE)
[2018-10-25 15:56] LABS: BILIRUBIN NEGATIVE (NEGATIVE); GLUCOSE NEGATIVE (NEGATIVE); KETONE NEGATIVE (NEGATIVE); PROTEIN NEGATIVE (NEGATIVE); UROBILINOGEN NORMAL (NORMAL)
[2018-10-25 16:04] VITALS: BP 104/53
== END 2018-10-25 16:04 | disposition home or self-care (01) ==
LOC: D.ER 13:48
PROVIDERS: Family Medicine
DX: M54.16 Radiculopathy, lumbar region (principal); I12.9 Hypertensive chronic kidney disease with stage 1 through stage 4 chronic kidney disease, or unspecified chronic kidney disease; N18.9 Chronic kidney disease, unspecified; E11.9 Type 2 diabetes mellitus without complications

== ENCOUNTER 2018-12-27 01:16 | Inpatient (IN) | payer MEDICARE ==
[~2018-12-27] VITALS: Ht 180.3 cm; Wt 136.1 kg
[2018-12-27] MEDS ORDERED: NEURONTIN 300300 MG PO (01:22)
[2018-12-27 01:41] LABS: BASOPHILS 0.4 % (0-2); EOSINOPHILS 7.1 % (0-7); HEMATOCRIT 37.2 % (42.0-54.0); HEMOGLOBIN 12.5 g/dL (13.5-17.5); IMMATURE GRANULOCYTES 1.9 % (0-5); LYMPHOCYTES 23.2 % (15-50); MCH 32.6 pg (26.0-34.0); MCHC 33.6 g/dL (31.0-37.0); MCV 96.9 fL (80.0-100.0); MEAN PLATELET VOLUME 10.1 fL (7.4-10.4); MONOCYTES 13.6 % (2-11); NEUTROPHILS 53.8 % (40-80); PLATELET COUNT 174 10x3/uL (130-400); RBC 3.84 10x6/uL (4.20-6.10); RDW 16.2 % (11.5-14.5); WBC 11.3 10x3/uL (4.8-10.8)
[2018-12-27 01:59] LABS: ALBUMIN 3.1 g/dL (3.4-5.0); ANION GAP 16.2 mmol/L (8-16); BILIRUBIN - TOTAL 0.65 mg/dL (0.2-1.3); CALCIUM 9.6 mg/dL (8.5-10.1); CARBON DIOXIDE 20.1 mmol/L (21.0-32.0); CREATININE - SERUM 1.8 mg/dL (0.6-1.3); POTASSIUM - SERUM 4.3 mmol/L (3.5-5.1); PROTEIN - SERUM 7.7 g/dL (6.4-8.2)
[2018-12-27 02:06] LABS: THYROID STIMULATING HORMONE 2.66 uIU/mL (0.36-3.74); TROPONIN-I 0.017 ng/mL (0.000-0.060)
--- NOTE | 2018-12-27 03:16 | NUR ---
WHILE TRANSFERRING PT TO PT LOST BALANCE AND WAS ASSISTED TO THE FLOOR BETWEEN FOOT PEDDELS OF . WC BRAKES WERE IN LOCKED POSITION. CALLED FOR ASSISTANCE. TRANSFERRED TO BED SUPERFICAL ABRASION TO LEFT POSTIOR THORAX SMALL SKIN TEARS TO BLE WERE VENOUS STASIS IS PROMINENT
--- NOTE | 2018-12-27 03:16 | NUR ---
REPORT RECEIVED...ROOM PREPARED FOR PT'S ARRIVAL.
--- NOTE | 2018-12-27 03:24 | NUR ---
PT ARRIVED ON UNIT VIA STRETCHER ESCORTED BY ER STAFF. TRANSFERRED TO BED AND POSITIONED FOR COMFORT. YELLOW GOWN, YELLOW BRACELET, YELLOW STAR ON DOOR, AND GRIPPER SOCKS PLACED. BED ALARM IN USE FOR SAFETY.
[2018-12-27 04:00] VITALS: BP 149/67
[2018-12-27] MEDS ORDERED: LASIX40 MG PO (04:00)
--- NOTE | 2018-12-27 04:00 | NUR ---
APPLIED ADAPTIC TO BILATERAL LOWER LEGS TO SKIN TEARS AND WRAPPED WITH KERLEX.
[2018-12-27] MEDS ORDERED: NOVOLIN 70/30 110 ML SC ×2 (04:03→04:05)
[2018-12-27] MEDS ORDERED: LISINOPRIL10 MG PO (04:04)
[2018-12-27] MEDS ORDERED: SINGULAIR10 MG PO (04:06)
--- NOTE | 2018-12-27 04:30 | NUR ---
COLLECTED URINE FOR ORDERED STUDIES AND DELIVERED TO LAB.
--- NOTE | 2018-12-27 04:41 | NUR ---
PT TAKEN TO RADIOLOGY FOR VQ SCAN IN BED.
[2018-12-27 04:42] VITALS: BP 149/67; BMI 41.9
[2018-12-27 04:54] LABS: UDS - AMPHET NEGATIVE QUAL (NEGATIVE); UDS - BARB NEGATIVE QUAL (NEGATIVE); UDS - BENZO NEGATIVE QUAL (NEGATIVE); UDS - COCAINE NEGATIVE QUAL (NEGATIVE); UDS - OPIATE NEGATIVE QUAL (NEGATIVE); UDS - PCP NEGATIVE QUAL (NEGATIVE); UDS - THC NEGATIVE QUAL (NEGATIVE)
[2018-12-27 05:02] LABS: APPEARANCE CLEAR (CLEAR); BILIRUBIN NEGATIVE (NEGATIVE); COLOR YELLOW (YELLOW); GLUCOSE NEGATIVE (NEGATIVE); KETONE NEGATIVE (NEGATIVE); NITRITE NEGATIVE (NEGATIVE); PROTEIN NEGATIVE (NEGATIVE); SPECIFIC GRAVITY 1.015 (1.005-1.020); UROBILINOGEN NORMAL (NORMAL)
--- NOTE | 2018-12-27 06:04 | NUR ---
spoke with darnell on the phone and updated on fall
--- NOTE | 2018-12-27 06:10 | NUR ---
FSBS 158 THIS AM...HELD SLIDING SCALE, PT STILL NAUSEATED AND MAY NOT EAT MUCH BREAKFAST.
[2018-12-27 08:32] LABS: BASOPHILS 0.5 % (0-2); EOSINOPHILS 3.4 % (0-7); HEMATOCRIT 36.1 % (42.0-54.0); HEMOGLOBIN 11.9 g/dL (13.5-17.5); IMMATURE GRANULOCYTES 1.6 % (0-5); MCH 32.2 pg (26.0-34.0); MCV 97.6 fL (80.0-100.0); MEAN PLATELET VOLUME 10.5 fL (7.4-10.4); NEUTROPHILS 68.5 % (40-80); PLATELET COUNT 166 10x3/uL (130-400); RDW 16.1 % (11.5-14.5)
[2018-12-27 08:47] VITALS: BP 138/65
[2018-12-27 12:27] VITALS: Ht 180.3 cm; Wt 136.1 kg
[2018-12-27 12:59] VITALS: BP 146/72
--- NOTE | 2018-12-27 14:43 | NUR ---
I have reviewed this patient and I concur with the Shift Assessment completed by the Licensed Practical Nurse today this shift.
[2018-12-27 16:00] VITALS: BP 156/70
--- NOTE | 2018-12-27 16:43 | NUR ---
SCD'S NOT PLACED ON PATIENT DUE TO BILATERAL LOWER EXTREMITY SKIN TEARS.
--- NOTE | 2018-12-27 17:15 | NUR ---
PATIENT HAS BEEN VOMITING BROWN LIQUID; ABOUT 800CC IN 4 HOURS. ZOFRAN NOT HELPING. BLOOD SUGAR GOOD AT 128.
--- NOTE | 2018-12-27 17:59 | NUR ---
PATIENT'S FSBS WAS 128. RESULT OF 204 WAS FROM A DIFFERENT PATIENT. NO INSULIN GIVEN TO THIS PATIENT.
--- NOTE | 2018-12-27 19:00 | NUR ---
REPORT RECEIVED AND CARE OF PT ASSUMED. PT LYING IN HIGH GONCALVES'S POSITION VISITING WITH FAMILY MEMBER. PT C/O INCREASING NAUSEA AND VOMITING. NEW ORDER FOR NG TUBE GIVEN TO DAY SHIFT NURSE....WILL PLACE SOON.
--- NOTE | 2018-12-27 19:45 | NUR ---
18 F NG TUBE PLACED TO LEFT NARE BY JACOBO ARREDONDO LPN WITH IMMEDIATE RETURN OF BLACKISH LIQUID...700 MLS OUT IN FIRST 10 MINUTES. PT FEELING BETTER AND ABDOMEN NOT DISTENDED. SETTING ON LIS PER ORDER. WILL CONTINUE TO MONITOR CLOSELY.
[2018-12-27 19:46] VITALS: BP 159/55
--- NOTE | 2018-12-27 21:47 | NUR ---
HS PO MEDS GIVEN WITH SIPS OF WATER AFTER TURNING OFF SUCTION...WILL LEAVE OFF FOR 1 HOUR.
--- NOTE | 2018-12-27 22:52 | NUR ---
SUCTION TURNED BACK ON TO NG TUBE. PLACED NEW CANNISTER AND RECORDED 1150 OUTPUT OF BROWNISH / BLACK LIQUID. WILL CONTINUE TO MONITOR FOR NEEDS.
[2018-12-28] VITALS (7 sets, daily range): BP systolic 134–162; BP diastolic 65–88
--- NOTE | 2018-12-28 01:11 | NUR ---
PT VERY ANXIOUS AND COMPLAINING ABOUT NG TUBE. GAVE ATIVAN 0.5MG IVP A LITTLE EARLY PT REALLY NEEDS AT THIS TIME. WILL MONITOR FOR EFFECTIVENESS.
--- NOTE | 2018-12-28 03:30 | NUR ---
PT PULLED OFF GOWN, TELEMETRY AND PULLED OUT IV. RE-DRESSED AND RE-SITED IV TO RIGHT FA USING 22 GUAGE CATHETER IN ONE STICK. MACHINE SILK SCREEN PRINTER RE-PLACED. BED ALARM IN USE. PT ACTING CONFUSED AND NOT SURE WHY HE IS SO RESTLESS....FEW MINUTES HE IS SITTING UP IN BED TEXTING ON HIS PHONE. WILL CONTINUE TO MONITOR FOR NEEDS.
--- NOTE | 2018-12-28 05:41 | NUR ---
PT BATHED AND ALL LINENS AND GOWN CHANGED.
[2018-12-28 06:18] LABS: BASOPHILS 0.2 % (0-2); EOSINOPHILS 1.2 % (0-7); HEMATOCRIT 38.2 % (42.0-54.0); HEMOGLOBIN 12.5 g/dL (13.5-17.5); LYMPHOCYTES 15.6 % (15-50); MCH 32.1 pg (26.0-34.0); MCHC 32.7 g/dL (31.0-37.0); MCV 98.2 fL (80.0-100.0); MEAN PLATELET VOLUME 10.8 fL (7.4-10.4); MONOCYTES 10.5 % (2-11); NEUTROPHILS 71.5 % (40-80); PLATELET COUNT 179 10x3/uL (130-400); RBC 3.89 10x6/uL (4.20-6.10); RDW 16.1 % (11.5-14.5); WBC 13.3 10x3/uL (4.8-10.8)
[2018-12-28 06:40] LABS: ALBUMIN 2.9 g/dL (3.4-5.0); ANION GAP 12.5 mmol/L (8-16); CALCIUM 9.7 mg/dL (8.5-10.1); CREATININE - SERUM 1.5 mg/dL (0.6-1.3); POTASSIUM - SERUM 3.8 mmol/L (3.5-5.1); PROTEIN - SERUM 7.2 g/dL (6.4-8.2)
[2018-12-28 06:44] LABS: CARBON DIOXIDE 29.3 mmol/L (21.0-32.0)
--- NOTE | 2018-12-28 19:00 | NUR ---
REPORT RECEIVED AND CARE OF PT ASSUMED. PT LYING IN HIGH GONCALVES'S POSITION VISITING WITH FAMILY MEMBERS. IV IN RIGHT FA PATENT WITH NS INFUSING AT 125 ML / HR. TELEMETRY IN PLACE AND READING PACED. WILL MONITOR FOR NEEDS. CALL LIGHT WITHIN REACH. BED ALARM IN USE FOR SAFETY.
--- NOTE | 2018-12-28 20:55 | NUR ---
HS MEDICATIONS GIVEN. FSBS 120 THIS CHECK REQUIRING NO COVERAGE PER SLIDING SCALE. WILL CONTINUE TO MONITOR FOR NEEDS.
[2018-12-29 04:20] VITALS: BP 156/70
--- NOTE | 2018-12-29 05:06 | NUR ---
GAVE ZOFRAN PER REQUEST FOR C/O NAUSEA. WILL MONITOR FOR EFFECTIVENESS.
[2018-12-29 06:42] LABS: BASOPHILS 0.2 % (0-2); EOSINOPHILS 2.9 % (0-7); HEMATOCRIT 40.3 % (42.0-54.0); IMMATURE GRANULOCYTES 0.8 % (0-5); LYMPHOCYTES 15.1 % (15-50); MCH 32.3 pg (26.0-34.0); MCHC 32.3 g/dL (31.0-37.0); MEAN PLATELET VOLUME 10.3 fL (7.4-10.4); MONOCYTES 9.4 % (2-11); NEUTROPHILS 71.6 % (40-80); PLATELET COUNT 164 10x3/uL (130-400); RBC 4.03 10x6/uL (4.20-6.10); RDW 16.1 % (11.5-14.5); WBC 13.3 10x3/uL (4.8-10.8)
[2018-12-29 07:14] LABS: BILIRUBIN - TOTAL 1.49 mg/dL (0.2-1.3); CALCIUM 9.7 mg/dL (8.5-10.1); CARBON DIOXIDE 30.7 mmol/L (21.0-32.0); CREATININE - SERUM 1.3 mg/dL (0.6-1.3); POTASSIUM - SERUM 3.7 mmol/L (3.5-5.1); PROTEIN - SERUM 7.5 g/dL (6.4-8.2)
[2018-12-29 08:59] VITALS: BP 154/77
[2018-12-29 13:09] VITALS: BP 133/63
--- NOTE | 2018-12-29 15:20 | NUR ---
I have reviewed this patient and I concur with the Shift Assessment completed by the Licensed Practical Nurse today this shift.
[2018-12-29 16:47] VITALS: BP 170/83
--- NOTE | 2018-12-29 17:22 | NUR ---
NPO AFTER MIDNIGHT PER NUCLEAR MED. FOR GASTRIC EMPTING SCAN. NO PAIN MEDS AFTER MIDNIGHT WELL
--- NOTE | 2018-12-29 19:00 | NUR ---
REPORT RECEIVED AND CARE OF PT ASSUMED. PT LYING IN HIGH GONCALVES'S POSITION WATCHING TV. IV IN LEFT WRIST PATENT WITH NS INFSUING AT 125 ML / HR. TELEMETRY IN PLACE AND PT READING PACED AT THIS ASSESSMENT. WILL MONITOR FOR NEEDS.
--- NOTE | 2018-12-29 19:07 | NUR ---
Rehab Note- Acute Inpatient Rehb prescreen order received. The patient has [employer] insurance and will require a PreAuth prior to an acute inpatient acute rehab stay. Will need his OT Eval done for the PreAuth process. Will follow at this time. Thank you for this referral! Adrianne Christianson RN Clinical Liaison, [facility] Rehab
[2018-12-29 20:00] VITALS: BP 129/72
--- NOTE | 2018-12-29 21:52 | NUR ---
HS MEDICATIONS GIVEN. FSBS 143 THIS CHECK REQUIRING NO COVERAGE PER THE SLIDING SCALE. WILL CONTINUE TO MONITOR FOR NEEDS.
[2018-12-30] VITALS: BP 144/77
--- NOTE | 2018-12-30 | NUR ---
NPO STATUS STARTS NOW. ALL CUPS REMOVED FROM PT'S SIDE TABLE.
[2018-12-30 03:00] VITALS: BP 138/59
[2018-12-30 05:56] LABS: BASOPHILS 0.4 % (0-2); EOSINOPHILS 4.4 % (0-7); HEMATOCRIT 38.6 % (42.0-54.0); HEMOGLOBIN 12.6 g/dL (13.5-17.5); IMMATURE GRANULOCYTES 1.4 % (0-5); MCH 32.4 pg (26.0-34.0); MCHC 32.6 g/dL (31.0-37.0); MCV 99.2 fL (80.0-100.0); MEAN PLATELET VOLUME 10.5 fL (7.4-10.4); MONOCYTES 11.3 % (2-11); NEUTROPHILS 64.5 % (40-80); PLATELET COUNT 174 10x3/uL (130-400); RBC 3.89 10x6/uL (4.20-6.10); WBC 13.2 10x3/uL (4.8-10.8)
[2018-12-30 06:52] LABS: ALBUMIN 2.7 g/dL (3.4-5.0); ANION GAP 15.1 mmol/L (8-16); BILIRUBIN - TOTAL 1.38 mg/dL (0.2-1.3); CALCIUM 9.3 mg/dL (8.5-10.1); CARBON DIOXIDE 25.6 mmol/L (21.0-32.0); CREATININE - SERUM 1.4 mg/dL (0.6-1.3); POTASSIUM - SERUM 3.7 mmol/L (3.5-5.1)
[2018-12-30 08:30] VITALS: BP 155/77
--- NOTE | 2018-12-30 15:37 | MORECARE ---
CASE MANAGEMENT DISCHARGE SUMMARY PATIENT: TRUPTI GRIFFITH UNIT: [id number] ADM DATE: 12/27/18 AGE: 68 : [birth year] SEX: M ROOM/BED: D.2216 AUTHOR: KEELEY,DOC PHYSICIAN: REFERRING PHYSICIAN: AZEEM BUSTILLO MD DATE OF SERVICE: 12/30/18 Discharge Plan Patient Name: TRUPTI GRIFFITH Facility: [facility]:[place] : 1950 Planned Disposition: Inpatient Rehab Anticipated Discharge Date: Discharge Date: Expected LOS: Initial Reviewer: [email or web address] Initial Review Date: 12/27/2018 Generated: 12/30/18 4:36 pm Comments DCP- Discharge Planning Updated by [id number]: Ellen Agudelo on 12/30/18 2:[address] Patient Name: TRUPTI GRIFFITH Admission Status: ER Accout number: [id number] Admission Date: 12-27-2018 : 1950 Admission Diagnosis:DISORIENTATION, UNSPECIFIED Attending: AZEEM BUSTILLO Current LOS: 3 Anticipated DC Date: Planned Disposition: Inpatient Rehab Primary Insurance: [employer] CHO[employer] PPO MCR ADVANT Discharge Planning Comments: CM met with patient to complete initial dc planning assessment. CM educated patient on the CM role and verbal consent given by patient to complete assessment. Patient lives at home with his step daughter and her . At discharge patient would like to go to our inpatient rehab if he can. CM discussed availability of home health, rehab services, and medical equipment. He stated that he has been at [facility] for 20 days not long ago. He has [facility] home [facility] with OT,PT, and Nursing. He has a tub bench, walker, rollator, and elevated toilet seat. I explained to him about Skilled and having 20 days and needing 60 well days. Patient denied known discharge needs at this time. CM will continue to follow and will assist as needed with dc plans/needs. [place] Measurer: Ellen Agudelo DCPIA - Discharge Planning Initial Assessment Updated by [id number]: Ellen Agudelo on 12/30/18 3:31 pm * Is the patient Alert and Oriented? Yes * How many steps to enter\exit or inside your home? don't use * PCP CONTE * Pharmacy [facility] * Preadmission Environment Home with Family * ADLs Partial Dependent * Partial ADLs (Assistance needed) Ambulation * Equipment Elevated [place] Seat Rolling Walker Shower Chair Tub Bench * List name and contact numbers for known caregivers / representatives who currently or will assist patient after discharge: GLO DANGALEB [phone] * Verbal permission to speak to the caregivers and representatives has been obtained from the patient. N/A * Community resources currently utilized Home Health * Please name any agencies selected above. [facility] OT,PT, NURSE * Additional services required to return to the preadmission environment? Yes * Can the patient safely return to the preadmission environment? Yes * Has this patient been hospitalized within the prior 30 days at any hospital? No Patient Name: TRUPTI GRIFFITH Page [id number] at 1537 All edits/amendments must be made on the electronic document DICTATION DATE: 12/30/181535 ARMOR SENIOR SERGEANT: BARRON 12/30/181535 RPT#: [id number] DC DATE: STATUS: ADM IN [facility] [address] [place] [address] END OF REPORT
[2018-12-30 17:17] VITALS: BP 160/82
--- NOTE | 2018-12-30 17:20 | NUR ---
OT NOTE: PT COMPLETED BED MOB WITH MIN/MOD A. PT COMPLETED ADL MOB WITH CGA. PT COMPLETED SIT TO STAND FROM TOILET WITH MOD A. PT COMPLETED HYGIENE TASKS WITH SBA. THANK YOU, HANK WARE
--- NOTE | 2018-12-30 20:30 | NUR ---
PT RESTING IN BED. ALERT WITH SOME CONFUSION. NO SIGNS OF DISTRESS. BREATHING EVEN AND UNLABORED. PT STATES NO PROBLEMS AT THIS TIME. IV SITE LT FA DRESSING CLEAN DRY AND INTACT. NO SIGNS OF INFECTION. BOWEL SOUNDS ACTIVE. TELE MONITOR 60 PACE. SOME LOWER LEG DISCOLORATION. WILL CONTINUE PLAN OF CARE. CALL LIGHT IN REACH. BED LOWERED AND LOCKED. BED RAILS UP X3. BED ALARM ON. SOCKS ON.
--- NOTE | 2018-12-30 21:00 | NUR ---
FSBS 125 NO COVERAGE NEEDED AT THIS TIME PER SS.
--- NOTE | 2018-12-31 04:46 | NUR ---
I have reviewed this patient and I concur with the Shift Assessment completed by the Licensed Practical Nurse today this shift.
[2018-12-31 05:55] VITALS: BP 149/99
[2018-12-31 06:04] LABS: BASOPHILS 0.4 % (0-2); EOSINOPHILS 4.1 % (0-7); HEMOGLOBIN 12.8 g/dL (13.5-17.5); IMMATURE GRANULOCYTES 2.6 % (0-5); LYMPHOCYTES 19.5 % (15-50); MCH 32.2 pg (26.0-34.0); MCHC 32.8 g/dL (31.0-37.0); MCV 98.2 fL (80.0-100.0); MEAN PLATELET VOLUME 10.4 fL (7.4-10.4); MONOCYTES 10.6 % (2-11); NEUTROPHILS 62.8 % (40-80); PLATELET COUNT 173 10x3/uL (130-400); RBC 3.97 10x6/uL (4.20-6.10); RDW 15.8 % (11.5-14.5); WBC 11.8 10x3/uL (4.8-10.8)
[2018-12-31 06:33] LABS: ALBUMIN 2.7 g/dL (3.4-5.0); ANION GAP 11.4 mmol/L (8-16); BILIRUBIN - TOTAL 1.77 mg/dL (0.2-1.3); CALCIUM 9.5 mg/dL (8.5-10.1); CREATININE - SERUM 1.3 mg/dL (0.6-1.3); POTASSIUM - SERUM 3.4 mmol/L (3.5-5.1); PROTEIN - SERUM 6.9 g/dL (6.4-8.2)
--- NOTE | 2018-12-31 07:25 | NUR ---
FSBS 149 NO COVERAGE NEEDED AT THIS TIME. PER SS.
--- NOTE | 2018-12-31 07:49 | NUR ---
RECIEVED BEDSIDE REPORT. AM ROUNDS COMPLETED. VSS, AAOX2, BED ALARM ON, NO S/S OF RR DISTRESS. OUTGOING NURSE STATES PROVIDER HAS ORDERED TO HOLD PT GABAPENTIN AND ATIVAN, BUT MED IS NOT ON HOLD IN THE EMAR. PT HAVE DISCOLORATION TO THE LOWER EXTREMITIES, DENIES PAIN AT THIS MOMENT. WILL CPOC. CL IN REACH, BED IN LOW, SR UP X2.
[2018-12-31 09:46] VITALS: BP 117/66
--- NOTE | 2018-12-31 12:13 | NUR ---
OT NOTE: PT REPORTING THAT HE FEELS NAUSEATED BUT AGREEABLE TO GET UP; PRACTICED EXTENSIVE BED MOBILITY INCLUDING SEVERAL WAYS TO PERFORM SUPINE TO SIT WITH LEAST AMOUNT OF ASSIST. PT VERY FATIGUED FOLLOWING THIS AND REQIURED EXTENSIVE REST BREAK WHILE SITTING ON EDGE OF BED. PT ABLE TO AMB FROM BED TO CHAIR WITH USE OF WALKER AND MIN ASSIST. PROVIDED PT WITH WASH CLOTH TO CLEAN FACE AND HANDS. INDEP WITH FEEDING, DRINKING, AND COMMUNICATION. DAVINA ROSAS, OTR/L
--- NOTE | 2018-12-31 13:20 | NUR ---
PT CURRENTLY RESTING ON THE COUCH WITH EYES OPEN. PT IN PT ROOM AT THIS TIME. WILL CPOC. CL IN REACH, BED IN LOW, SR UP X2.
[2018-12-31 15:10] VITALS: BP 114/62
--- NOTE | 2018-12-31 16:00 | NUR ---
Rehab Note- Received call from [facility] stating that their medical instrument technician had preliminary denial for an inpatient acute rehab stay. A peer to peer can be set up by calling [phone] prior to 01/03/19 @ 1300CST with information of physician to do peer to peer. Thank you for this referral! Adrianne Christianson RN CLinical Liaison, [facility] Rehab
--- NOTE | 2018-12-31 16:34 | NUR ---
OT NOTE: PT COMPLETED SITTING BALANCE WITH SBA. PT COMPLETED SIT TO STAND WITH MIN A. PT COMPLETED BUE AROM EXS. THANK YOU, HANK WARE
[2018-12-31 17:24] VITALS: BP 127/61
--- NOTE | 2018-12-31 20:20 | NUR ---
PT RESTING IN BED. ALERT AND ORIENTED. NO SIGNS OF DISTRESS. BREATHING EVEN AND UNLABORED. PT STATES NO PROBLEMS AT THIS TIME. IV SITE LT FA DRESSING CLEAN DRY AND INTACT. NO SIGNS OF INFECTION. BOWEL SOUNDS ACTIVE. LOWER LEG DISCOLORATION AND SORES. WILL CONTINUE PLAN OF CARE. CALL LIGHT IN REACH. BED LOWERED AND LOCKED. BED RAILS UP X3.
--- NOTE | 2018-12-31 21:00 | NUR ---
FSBS 174 2 UNITS GIVEN PER SS.
[2018-12-31 21:37] VITALS: BP 114/57
[2019-01-01 01:33] VITALS: BP 124/54
--- NOTE | 2019-01-01 02:00 | NUR ---
IV INFULTRATED NEW IV STARTED RT HAND 22G. ATTEMPT X1. PT TOLERATED WELL. WILL CONTINUE IV FLUIDS.
[2019-01-01 04:48] VITALS: BP 130/67
[2019-01-01 05:20] LABS: BASOPHILS 0.4 % (0-2); HEMOGLOBIN 13.3 g/dL (13.5-17.5); IMMATURE GRANULOCYTES 2.4 % (0-5); LYMPHOCYTES 13.3 % (15-50); MCH 32.4 pg (26.0-34.0); MCHC 33.3 g/dL (31.0-37.0); MCV 97.6 fL (80.0-100.0); MEAN PLATELET VOLUME 10.9 fL (7.4-10.4); MONOCYTES 11.3 % (2-11); NEUTROPHILS 69.6 % (40-80); PLATELET COUNT 186 10x3/uL (130-400); RDW 16.1 % (11.5-14.5)
[2019-01-01 05:42] LABS: WBC 14.9 10x3/uL (4.8-10.8)
[2019-01-01 05:54] LABS: ALBUMIN 2.9 g/dL (3.4-5.0); BILIRUBIN - TOTAL 1.4 mg/dL (0.2-1.3); CALCIUM 9.6 mg/dL (8.5-10.1); CARBON DIOXIDE 27.7 mmol/L (21.0-32.0); CREATININE - SERUM 1.5 mg/dL (0.6-1.3); POTASSIUM - SERUM 3.7 mmol/L (3.5-5.1); PROTEIN - SERUM 7.4 g/dL (6.4-8.2)
--- NOTE | 2019-01-01 06:00 | NUR ---
FSBS 188 2 UNITS OF INSULIN GIVEN PER SS.
--- NOTE | 2019-01-01 07:45 | NUR ---
PATIENT ADMITTED FOR DEHYDRATION AND VOMITING WITH HX OF PROSTATE CANCER. PATIENT REPORTS NAUSEA AT TIMES. NO DIARRHEA REPORTED. CL IN REACH
[2019-01-01 09:07] VITALS: BP 106/63
[2019-01-01 13:29] VITALS: BP 118/64
--- NOTE | 2019-01-01 14:19 | MORECARE ---
CASE MANAGEMENT DISCHARGE SUMMARY PATIENT: TRUPTI GRIFFITH UNIT: [id number] ADM DATE: 12/27/18 AGE: 68 : 48 SEX: M ROOM/BED: D.2216 AUTHOR: KEELEYDOC PHYSICIAN: REFERRING PHYSICIAN: AZEEM BUSTILLO MD DATE OF SERVICE: 01/01/19 Discharge Plan Patient Name: TRUPTI GRIFFITH Facility: [facility]:[place] : 1950 Planned Disposition: Inpatient Rehab Anticipated Discharge Date: Discharge Date: Expected LOS: Initial Reviewer: [id number] Initial Review Date: 12/27/2018 Generated: 01/01/19 3:19 pm DCP- Discharge Planning Updated by [email or web address]: Ellen Agudelo on 12/30/18 2:[address] Patient Name: TRUPTI GRIFFITH Admission Status: ER Accout number: [id number] Admission Date: 12-27-2018 : 1950 Admission Diagnosis:DISORIENTATION, UNSPECIFIED Attending: AZEEM BUSTILLO Current LOS: 3 Anticipated DC Date: Planned Disposition: Inpatient Rehab Primary Insurance: [employer] CHOICE PPO MCR ADVANT Discharge Planning Comments: CM met with patient to complete initial dc planning assessment. CM educated patient on the CM role and verbal consent given by patient to complete assessment. Patient lives at home with his step daughter and her . At discharge patient would like to go to our inpatient rehab if he can. CM discussed availability of home health, rehab services, and medical equipment. He stated that he has been at [facility] for 20 days not long ago. [facility] and Nursing. He has a tub bench, walker, rollator, and elevated toilet seat. I explained to him about Skilled and having 20 days and needing 60 well days. Patient denied known discharge needs at this time. CM will continue to follow and will assist as needed with dc plans/needs. Return Agent: Ellen Agudelo DCPIA - Discharge Planning Initial Assessment Updated by [email or web address]: Ellen Agudelo on 12/30/18 3:31 pm * Is the patient Alert and Oriented? Yes * How many steps to enter\exit or inside your home? don't use * PCP CONTE * Pharmacy [facility] * Preadmission Environment Home with Family * ADLs Partial Dependent * Partial ADLs (Assistance needed) Ambulation * Equipment Elevated [place] Seat Rolling Walker Shower Chair Tub Bench * List name and contact numbers for known caregivers / representatives who currently or will assist patient after discharge: GLO DANGALEB [phone] * Verbal permission to speak to the caregivers and representatives has been obtained from the patient. N/A * Community resources currently utilized Home Health * Please name any agencies selected above. [facility] * Additional services required to return to the preadmission environment? Yes * Can the patient safely return to the preadmission environment? Yes * Has this patient been hospitalized within the prior 30 days at any hospital? No External Providers [facility] Next Contact Date: Service Request Date: Service Type: Resolution: Reviewer: Comments: Last DP export: 12/30/18 2:36 p Patient Name: TRUPTI GRIFFITH Page [phone] at 1419 All edits/amendments must be made on the electronic document DICTATION DATE: 01/01/191417 TRIAL PARALEGAL: BARRON 01/01/191417 RPT#: [id number] DC DATE: STATUS: ADM IN [facility] [address] [place] [address] END OF REPORT
--- NOTE | 2019-01-01 15:41 | NUR ---
OT NOTE: PT PERFORMED WELL TODAY. ABLE TO AMB APPROX 200 FT WITH MIN ASSIST WITH WALKER, GAIT BELT, IV POLE, AND 3 STANDING REST BREAKS. PERFORMED TOILETING WITH MIN/MOD ASSIST WITH TRANSFER..INCREASED DIFFICULTY WITH SIT TO STAND. CLOTHING MGMT WITH MIN/MOD ASSIST WITH BALANCE; SIMPLE GROOMING WITH SET UP . MIN ASSIST TO BERTRAND GOWN. BED MOB WITH VERY MINIMAL ASSIST. DAVINA ROSAS, OTR/L
--- NOTE | 2019-01-01 15:53 | NUR ---
OT NOTE: PT COMPLETED BED MOBILITY WITH MIN A. PT COMPLETED SIT TO STAND WITH MIN A. PT COMPLETED HYGIENE TASKS WITH SBA ON TOILET. THANK YOU, HANK WARE
--- NOTE | 2019-01-01 20:40 | NUR ---
PT RESTING IN BED. ALERT AND ORINETED. NO SIGNS OF DISTRESS. BREATHING EVEN AND UNLABORED. PT STATES NO PROBLEMS AT THIS TIME. IV SITE RT HAND DRESSING CLEAN DRY AND INTACT. NO SIGNS OF INFECTION. BOWEL SOUNDS ACTIVE. LOWER LEG SWELLING SCABS SORES AND DISCOLORATION. DRESSINGS LOWER LEG CLEAN DRY AND INTACT. WILL CONTINUE PLAN OF CARE. CALL LIGHT IN REACH. BED LOWERED AND LOCKED. BED RAILS UP X3.
--- NOTE | 2019-01-01 21:00 | NUR ---
FSBS 163 NO INSULIN GIVEN AT THIS TIME PER PT BEING NPO.
[2019-01-01 21:47] VITALS: BP 102/58
--- NOTE | 2019-01-02 03:35 | NUR ---
I have reviewed this patient and I concur with the Shift Assessment completed by the Licensed Practical Nurse today this shift.
[2019-01-02 04:37] VITALS: BP 124/64
[2019-01-02 05:27] LABS: BASOPHILS 0.6 % (0-2); HEMATOCRIT 37.6 % (42.0-54.0); HEMOGLOBIN 12.6 g/dL (13.5-17.5); IMMATURE GRANULOCYTES 4.1 % (0-5); LYMPHOCYTES 20.4 % (15-50); MCH 32.9 pg (26.0-34.0); MCHC 33.5 g/dL (31.0-37.0); MCV 98.2 fL (80.0-100.0); MEAN PLATELET VOLUME 10.6 fL (7.4-10.4); MONOCYTES 12.2 % (2-11); NEUTROPHILS 58.7 % (40-80); PLATELET COUNT 173 10x3/uL (130-400); RBC 3.83 10x6/uL (4.20-6.10); WBC 13.6 10x3/uL (4.8-10.8)
[2019-01-02 05:46] LABS: ANION GAP 12.3 mmol/L (8-16); BILIRUBIN - TOTAL 1.42 mg/dL (0.2-1.3); CALCIUM 9.2 mg/dL (8.5-10.1); CARBON DIOXIDE 25.6 mmol/L (21.0-32.0); CREATININE - SERUM 1.8 mg/dL (0.6-1.3); POTASSIUM - SERUM 3.9 mmol/L (3.5-5.1)
[2019-01-02 06:28] LABS: BILIRUBIN - DIRECT 0.33 mg/dL (0.00-0.30); BILIRUBIN - INDIRECT 1.09 mg/dL (0.00-1.00)
--- NOTE | 2019-01-02 06:41 | NUR ---
FSBS 164 NO COVERAGE AT THIS TIME. PT NPO.
--- NOTE | 2019-01-02 07:40 | NUR ---
PATIENT OFF FLOOR FOR EGD AT THIS TIME
--- NOTE | 2019-01-02 08:30 | NUR ---
PATIENT ADMITTED FOR VOMITING AND DEHYDRATION. EGD THIS AM WITH MULTIPLE ULCERS REPORTED. IV INFILTRATED ON RETURN, TRIED TO RESTART X3 STICKS UNSUCCESSFUL, CALL TO VASCULAR ACCES TO RESTART. PATIENT DENIES NAUSEA AT THIS TIME, V/S WNL.
[2019-01-02 10:39] VITALS: BP 134/63
[2019-01-02 13:03] VITALS: BP 123/67
--- NOTE | 2019-01-02 13:03 | NUR ---
NUTRITION F/U PT TOLERATING REG DIABETIC DIET. 75% INTAKE RECENT MEALS. WILL CONTINUE TO PROVIDE DIET, MONITOR PO INTAKE. RD FOLLOWING
--- NOTE | 2019-01-02 14:02 | MORECARE ---
CASE MANAGEMENT DISCHARGE SUMMARY PATIENT: TRUPTI GRIFFITH UNIT: [id number] ADM DATE: 12/27/18 AGE: 68 : 48 SEX: M ROOM/BED: D.2216 AUTHOR: KEELEYDOC PHYSICIAN: REFERRING PHYSICIAN: AZEEM BUSTILLO MD DATE OF SERVICE: 01/02/19 Discharge Plan Patient Name: TRUPTI GRIFFITH Facility: [facility]:[place] : 1950 Planned Disposition: Inpatient Rehab Anticipated Discharge Date: Discharge Date: Expected LOS: Initial Reviewer: [email or web address] Initial Review Date: 12/27/2018 Generated: 01/02/19 3:02 pm Comments DCP- Discharge Planning Updated by [email or web address]: Ellen Agudelo on 01/02/19 12:[address] IMM SERVED AND EXPLAINED, COPY GIVEN TO PATIENT. PATIENT WANTS AND WILL CONTINUE HOME HEALTH WITH [facility] HE DOES NOT HAVE ANY SKILLED DAYS LEFT. DCP- Discharge Planning Updated by [email or web address]: Ellen Agudelo on 12/30/18 2:[address] Patient Name: TRUPTI GRIFFITH Admission Status: ER Accout number: [id number] Admission Date: 12-27-2018 : 1950 Admission Diagnosis:DISORIENTATION, UNSPECIFIED Attending: AZEEM BUSTILLO Current LOS: 3 Anticipated DC Date: Planned Disposition: Inpatient Rehab Primary Insurance: [employer] CHOICE PPO MCR ADVANT Discharge Planning Comments: CM met with patient to complete initial dc planning assessment. CM educated patient on the CM role and verbal consent given by patient to complete assessment. Patient lives at home with his step daughter and her . At discharge patient would like to go to our inpatient rehab if he can. CM discussed availability of home health, rehab services, and medical equipment. He stated that he has been at [facility] for 20 days not long ago. [facility]PT, and Nursing. He has a tub bench, walker, rollator, and elevated toilet seat. I explained to him about Skilled and having 20 days and needing 60 well days. Patient denied known discharge needs at this time. CM will continue to follow and will assist as needed with dc plans/needs. Manager Transfer: Ellen Agudelo DCPIA - Discharge Planning Initial Assessment Updated by [id number]: Ellen Agudelo on 12/30/18 3:31 pm * Is the patient Alert and Oriented? Yes * How many steps to enter\exit or inside your home? don't use * PCP INÉS * Pharmacy [facility] * Preadmission Environment Home with Family * ADLs Partial Dependent * Partial ADLs (Assistance needed) Ambulation * Equipment Elevated [place] Seat Rolling Walker Shower Chair Tub Bench * List name and contact numbers for known caregivers / representatives who currently or will assist patient after discharge: GLO SERRANO [phone] * Verbal permission to speak to the caregivers and representatives has been obtained from the patient. N/A * Community resources currently utilized Home Health * Please name any agencies selected above. [facility] * Additional services required to return to the preadmission environment? Yes * Can the patient safely return to the preadmission environment? Yes * Has this patient been hospitalized within the prior 30 days at any hospital? No Coverage Notice Reviewer: [id number] - Ellen Agudelo Notice Issued Date-Time: 01/02/2019 14:00 Notice Type: IM Discharge Notice Notice Delivered To: Patient Relationship to Patient: Special Shopper Name: Delivery Method: HAND - Hand Delivered Destiny Days: Prior Verbal Notification: Recipient Understood Notice: Yes Recipient Signature: Yes Med Rec Note Co-signed by Attending: Coverage Notice Comment: Last DP export: 01/01/19 1:19 p Patient Name: TRUPTI GRIFFITH Page [phone] at 1402 All edits/amendments must be made on the electronic document DICTATION DATE: 01/02/19 1402 STRIPER MACHINE: BARRON 01/02/19 1402 RPT#: [id number] DC DATE: STATUS: ADM IN [facility] [address] [place] [address] END OF REPORT
[2019-01-02 17:59] VITALS: BP 125/60
--- NOTE | 2019-01-02 19:00 | NUR ---
BEDSIDE REPORT RECEIVED AND CARE OF PT ASSUMED. PT SITTING UP ON SIDE OF BED AT BEDSIDE TABLE WATCHING TV. IV IN LEFT FA PATENT WITH NS INFUSING AT 125 ML / HR. TELEMETRY IN PLACE AND READING PACED AT THIS ASSESSMENT. WILL MONITOR FOR NEEDS. BED ALARM IN USE.
[2019-01-02 19:12] LABS: APPEARANCE CLEAR (CLEAR); BILIRUBIN NEGATIVE (NEGATIVE); COLOR STRAW (YELLOW); GLUCOSE NEGATIVE (NEGATIVE); KETONE NEGATIVE (NEGATIVE); NITRITE NEGATIVE (NEGATIVE); PROTEIN TRACE mg/dL (NEGATIVE); UROBILINOGEN NORMAL (NORMAL)
[2019-01-02 20:20] VITALS: BP 117/60
--- NOTE | 2019-01-02 20:26 | NUR ---
HS MEDICATIONS GIVEN. FSBS 180 THIS CHECK REQUIRING COVERAGE WITH 2 UNITS OF INSULIN PER SLIDING SCALE. WILL CONTINUE TO MONITOR FOR NEEDS.
--- NOTE | 2019-01-02 20:45 | NUR ---
ASSISTED PT UP TO USE RESTROOM WITH WALKER. REQUIRED 2 PERSON ASSIST TO GET HIM UP FROM TOILET. HAD LARGE BM. ASSISTED BACK IN BED AND POSITIONED FOR COMFORT. BED ALARM IN USE FOR SAFETY. CALL LIGHT WITHIN REACH.
--- NOTE | 2019-01-02 20:51 | NUR ---
OT NOTE: PT COMPLETED ADL MOB WITH SBA/CGA WITH RW. PT COMPLETED SIT TO STAND WITH MIN/MOD A. PT COMPLETED HYGIENE TASKS WITH SBA WHILE STANDING AT SINK LEVEL. THANK YOU,HANK WARE
--- NOTE | 2019-01-02 21:00 | NUR ---
GAVE X2 ORANGE SHERBETS FOR HS SNACK. DAUGHTER IS AT BEDSIDE VISITING.
[2019-01-03 00:31] VITALS: BP 124/64
--- NOTE | 2019-01-03 02:30 | NUR ---
ALL BEDDING AND GOWN CHANGED DUE TO INCONTINENCE. POSITIONED IN BED FOR COMFORT.
[2019-01-03 04:58] LABS: BASOPHILS 0.7 % (0-2); EOSINOPHILS 4.3 % (0-7); HEMATOCRIT 35.9 % (42.0-54.0); HEMOGLOBIN 11.8 g/dL (13.5-17.5); IMMATURE GRANULOCYTES 4.7 % (0-5); LYMPHOCYTES 19.1 % (15-50); MCH 32.3 pg (26.0-34.0); MCHC 32.9 g/dL (31.0-37.0); MCV 98.4 fL (80.0-100.0); MEAN PLATELET VOLUME 10.3 fL (7.4-10.4); NEUTROPHILS 57.2 % (40-80); PLATELET COUNT 149 10x3/uL (130-400); RBC 3.65 10x6/uL (4.20-6.10); RDW 15.8 % (11.5-14.5); WBC 11.8 10x3/uL (4.8-10.8)
--- NOTE | 2019-01-03 05:05 | NUR ---
CHANGED TIMES ON BID LASIX TO 0800 AND 1700, PT GETTING AT 9PM IS INTERFERRING WITH HIS SLEEP.
[2019-01-03 05:20] VITALS: BP 133/53
[2019-01-03 05:32] LABS: ANION GAP 11.9 mmol/L (8-16); CALCIUM 9.1 mg/dL (8.5-10.1); CREATININE - SERUM 1.8 mg/dL (0.6-1.3); POTASSIUM - SERUM 3.9 mmol/L (3.5-5.1)
[2019-01-03 09:38] VITALS: BP 104/53
--- NOTE | 2019-01-03 12:48 | MORECARE ---
CASE MANAGEMENT DISCHARGE SUMMARY PATIENT: TRUPTI GRIFFITH UNIT: [id number] ADM DATE: 12/27/18 AGE: 68 : 48 SEX: M ROOM/BED: D.2216 AUTHOR: KEELEY,DOC PHYSICIAN: REFERRING PHYSICIAN: AZEEM BUSTILLO MD DATE OF SERVICE: 01/03/19 Discharge Plan Patient Name: TRUPTI GRIFFITH Facility: [facility]:[place] : 1950 Planned Disposition: Inpatient Rehab Anticipated Discharge Date: Discharge Date: Expected LOS: Initial Reviewer: [id number] Initial Review Date: 12/27/2018 Generated: 01/03/19 1:48 pm Comments DCP- Discharge Planning Updated by [id number]: Ellen Agudelo on 01/03/19 11:[address] A P2P was set up to try to get him to inpatient rehab. He was denied in patient rehab, but could go to a skilled . He will have a 170.00/ per day co-pay to go to skilled. I have contacted [facility] and spoke with Kathie to let her know that he is discharging home where he is current with their services. CM will continue to follow and assist as needed DCP- Discharge Planning Updated by [email or web address]: Ellen Agudelo on 01/02/19 12:[address] IMM SERVED AND EXPLAINED, COPY GIVEN TO PATIENT. PATIENT WANTS AND WILL CONTINUE HOME HEALTH WITH [facility] HE DOES NOT HAVE ANY SKILLED DAYS LEFT. DCP- Discharge Planning Updated by [email or web address]: Ellen Agudelo on 12/30/18 2:[address] Patient Name: TRUPTI GRIFFITH Admission Status: ER Accout number: [id number] Admission Date: 12-27-2018 : 1950 Admission Diagnosis:DISORIENTATION, UNSPECIFIED Attending: AZEEM BUSTILLO Current LOS: 3 Anticipated DC Date: Planned Disposition: Inpatient Rehab Primary Insurance: [employer] CHOICE PPO MCR ADVANT Discharge Planning Comments: CM met with patient to complete initial dc planning assessment. CM educated patient on the CM role and verbal consent given by patient to complete assessment. Patient lives at home with his step daughter and her . At discharge patient would like to go to our inpatient rehab if he can. CM discussed availability of home health, rehab services, and medical equipment. He stated that he has been at [facility] for 20 days not long ago. [facility]PT, and Nursing. He has a tub bench, walker, rollator, and elevated toilet seat. I explained to him about Skilled and having 20 days and needing 60 well days. Patient denied known discharge needs at this time. CM will continue to follow and will assist as needed with dc plans/needs. Assistant Loan Processor: Ellen Agudelo DCPIA - Discharge Planning Initial Assessment Updated by [id number]: Ellen Agudelo on 12/30/18 3:31 pm * Is the patient Alert and Oriented? Yes * How many steps to enter\exit or inside your home? don't use * PCP INÉS * Pharmacy [facility] * Preadmission Environment Home with Family * ADLs Partial Dependent * Partial ADLs (Assistance needed) Ambulation * Equipment Elevated [place] Seat Rolling Walker Shower Chair Tub Bench * List name and contact numbers for known caregivers / representatives who currently or will assist patient after discharge: GLO SERRANO [phone] * Verbal permission to speak to the caregivers and representatives has been obtained from the patient. N/A * Community resources currently utilized Home Health * Please name any agencies selected above. [facility] * Additional services required to return to the preadmission environment? Yes * Can the patient safely return to the preadmission environment? Yes * Has this patient been hospitalized within the prior 30 days at any hospital? No Coverage Notice Reviewer: [id number] - Ellen Agudelo Notice Issued Date-Time: 01/02/2019 14:00 Notice Type: IM Discharge Notice Notice Delivered To: Patient Relationship to Patient: Air Battle Manager Name: Delivery Method: HAND - Hand Delivered Destiny Days: Prior Verbal Notification: Recipient Understood Notice: Yes Recipient Signature: Yes Med Rec Note Co-signed by Attending: Coverage Notice Comment: Last DP export: 01/02/19 1:02 p Patient Name: TRUPTI GRIFFITH Page 14662 at 6332 All edits/amendments must be made on the electronic document DICTATION DATE: 01/03/191 CALL CENTER RECRUITER: BARRON 01/03/19 1248 RPT#: [id number] OR DATE: STATUS: ADM IN [facility] [address] [place] [address] END OF REPORT
--- NOTE | 2019-01-03 12:55 | MORECARE ---
CASE MANAGEMENT DISCHARGE SUMMARY PATIENT: TRUPTI GRIFFITH UNIT: [id number] ADM DATE: 12/27/18 AGE: 68 : 48 SEX: M ROOM/BED: D.2216 AUTHOR: KEELEY,DOC PHYSICIAN: REFERRING PHYSICIAN: AZEEM BUSTILLO MD DATE OF SERVICE: 01/03/19 Discharge Plan Patient Name: TRUPTI GRIFFITH Facility: [facility]:[place] : 1950 Planned Disposition: Inpatient Rehab Anticipated Discharge Date: Discharge Date: Expected LOS: Initial Reviewer: [email or web address] Initial Review Date: 12/27/2018 Generated: 01/03/19 1:55 pm Comments DCP- Discharge Planning Updated by [email or web address]: Ellen Agudelo on 01/03/19 11:[address] A P2P was set up to try to get him to inpatient rehab. He was denied in patient rehab, but could go to a skilled . He will have a 170.00/ per day co-pay to go to skilled. I have contacted [facility] and spoke with Kathie to let her know that he is discharging home where he is current with their services. CM will continue to follow and assist as needed DCP- Discharge Planning Updated by [id number]: Ellen Agudelo on 01/02/19 12:[address] IMM SERVED AND EXPLAINED, COPY GIVEN TO PATIENT. PATIENT WANTS AND WILL CONTINUE HOME HEALTH WITH [facility] HE DOES NOT HAVE ANY SKILLED DAYS LEFT. DCP- Discharge Planning Updated by [email or web address]: Ellen Agudelo on 12/30/18 2:[address] Patient Name: TRUPTI GRIFFITH Admission Status: ER Accout number: [id number] Admission Date: 12-27-2018 : 1950 Admission Diagnosis:DISORIENTATION, UNSPECIFIED Attending: AZEEM BUSTILLO Current LOS: 3 Anticipated DC Date: Planned Disposition: Inpatient Rehab Primary Insurance: [employer] CHOICE PPO MCR ADVANT Discharge Planning Comments: CM met with patient to complete initial dc planning assessment. CM educated patient on the CM role and verbal consent given by patient to complete assessment. Patient lives at home with his step daughter and her . At discharge patient would like to go to our inpatient rehab if he can. CM discussed availability of home health, rehab services, and medical equipment. He stated that he has been at [facility] for 20 days not long ago. [facility] with [facility],PT, and Nursing. He has a tub bench, walker, rollator, and elevated toilet seat. I explained to him about Skilled and having 20 days and needing 60 well days. Patient denied known discharge needs at this time. CM will continue to follow and will assist as needed with dc plans/needs. Journalism Professor: Ellen Agudelo DCPIA - Discharge Planning Initial Assessment Updated by [email or web address]: Ellen Agudelo on 12/30/18 3:31 pm * Is the patient Alert and Oriented? Yes * How many steps to enter\exit or inside your home? don't use * PCP INÉS * Pharmacy [facility] * Preadmission Environment Home with Family * ADLs Partial Dependent * Partial ADLs (Assistance needed) Ambulation * Equipment Elevated [place] Seat Rolling Walker Shower Chair Tub Bench * List name and contact numbers for known caregivers / representatives who currently or will assist patient after discharge: GLO SERRANO [phone] * Verbal permission to speak to the caregivers and representatives has been obtained from the patient. N/A * Community resources currently utilized Home Health * Please name any agencies selected above. [facility] * Additional services required to return to the preadmission environment? Yes * Can the patient safely return to the preadmission environment? Yes * Has this patient been hospitalized within the prior 30 days at any hospital? No Coverage Notice Reviewer: [id number] - Ellen Agudelo Notice Issued Date-Time: 01/02/2019 14:00 Notice Type: IM Discharge Notice Notice Delivered To: Patient Relationship to Patient: Neighborhood Aide Name: Delivery Method: HAND - Hand Delivered Destiny Days: Prior Verbal Notification: Recipient Understood Notice: Yes Recipient Signature: Yes Med Rec Note Co-signed by Attending: Coverage Notice Comment: Last DP export: 01/02/19 1:02 p Patient Name: TRUPTI GRIFFITH Page 85687 at 1256 All edits/amendments must be made on the electronic document DICTATION DATE: 01/03/19 1257 CORE BLOWER: BARRON 01/03/19 1256 RPT#: [id number] DC DATE: STATUS: ADM IN [facility] [address] [place] [address] END OF REPORT
[2019-01-03] MEDS ORDERED: CARAFATE1 G PO (13:22)
[2019-01-03] MEDS ORDERED: PROTONIX40 MG PO (13:23)
[2019-01-03] MEDS ORDERED: PEPCID AC20 MG PO (13:26)
[2019-01-03 13:55] VITALS: BP 135/63
--- NOTE | 2019-01-03 14:48 | MORECARE ---
CASE MANAGEMENT DISCHARGE SUMMARY PATIENT: TRUPTI GRIFFITH UNIT: [id number] ADM DATE: 12/27/18 AGE: 68 : 48 SEX: M ROOM/BED: D.2216 AUTHOR: KEELEY,DOC PHYSICIAN: REFERRING PHYSICIAN: AZEEM BUSTILLO MD DATE OF SERVICE: 01/03/19 Discharge Plan Patient Name: TRUPTI GRIFFITH Facility: [facility]:[place] : 1950 Planned Disposition: Inpatient Rehab Anticipated Discharge Date: Discharge Date: Expected LOS: Initial Reviewer: [email or web address] Initial Review Date: 12/27/2018 Generated: 01/03/19 3:48 pm Comments DCP- Discharge Planning Updated by [email or web address]: Ellen Agudelo on 01/03/19 11:[address] A P2P was set up to try to get him to inpatient rehab. He was denied in patient rehab, but could go to a skilled . He will have a 170.00/ per day co-pay to go to skilled. I have contacted [facility] and spoke with Kathie to let her know that he is discharging home where he is current with their services. CM will continue to follow and assist as needed DCP- Discharge Planning Updated by [email or web address]: Ellen Agudelo on 01/02/19 12:[address] IMM SERVED AND EXPLAINED, COPY GIVEN TO PATIENT. PATIENT WANTS AND WILL CONTINUE HOME HEALTH WITH [facility] HE DOES NOT HAVE ANY SKILLED DAYS LEFT. DCP- Discharge Planning Updated by [email or web address]: Ellen Agudelo on 12/30/18 2:[address] Patient Name: TRUPTI GRIFFITH Admission Status: ER Accout number: [id number] Admission Date: 12-27-2018 : 1950 Admission Diagnosis:DISORIENTATION, UNSPECIFIED Attending: AZEEM BUSTILLO Current LOS: 3 Anticipated DC Date: Planned Disposition: Inpatient Rehab Primary Insurance: [employer] CHOICE PPO MCR ADVANT Discharge Planning Comments: CM met with patient to complete initial dc planning assessment. CM educated patient on the CM role and verbal consent given by patient to complete assessment. Patient lives at home with his step daughter and her . At discharge patient would like to go to our inpatient rehab if he can. CM discussed availability of home health, rehab services, and medical equipment. He stated that he has been at [facility] for 20 days not long ago. He has [facility] home health with OT,PT, and Nursing. He has a tub bench, walker, rollator, and elevated toilet seat. I explained to him about Skilled and having 20 days and needing 60 well days. Patient denied known discharge needs at this time. CM will continue to follow and will assist as needed with dc plans/needs. Cash Register Servicer: Ellen Agudelo DCPIA - Discharge Planning Initial Assessment Updated by [id number]: Ellen Agudelo on 12/30/18 3:31 pm * Is the patient Alert and Oriented? Yes * How many steps to enter\exit or inside your home? don't use * PCP INÉS * Pharmacy [facility] * Preadmission Environment Home with Family * ADLs Partial Dependent * Partial ADLs (Assistance needed) Ambulation * Equipment Elevated [place] Seat Rolling Walker Shower Chair Tub Bench * List name and contact numbers for known caregivers / representatives who currently or will assist patient after discharge: GLO SERRANO [phone] * Verbal permission to speak to the caregivers and representatives has been obtained from the patient. N/A * Community resources currently utilized Home Health * Please name any agencies selected above. [facility] OT,PT, NURSE * Additional services required to return to the preadmission environment? Yes * Can the patient safely return to the preadmission environment? Yes * Has this patient been hospitalized within the prior 30 days at any hospital? No External Providers [facility] Next Contact Date: Service Request Date: Service Type: Resolution: Reviewer: Comments: Coverage Notice Reviewer: [id number] - Ellen Agudelo Notice Issued Date-Time: 01/02/2019 14:00 Notice Type: IM Discharge Notice Notice Delivered To: Patient Relationship to Patient: Photocopying Equipment Mechanic Name: Delivery Method: HAND - Hand Delivered Destiny Days: Prior Verbal Notification: Recipient Understood Notice: Yes Recipient Signature: Yes Med Rec Note Co-signed by Attending: Coverage Notice Comment: Last DP export: 01/03/19 11:55 a Patient Name: TRUPTI GRIFFITH Page [id number] at 1448 All edits/amendments must be made on the electronic document DICTATION DATE: 01/03/191446 SUPERVISOR CARPENTERS: BARRON 01/03/191446 RPT#: [id number] DC DATE: STATUS: ADM IN [facility] [address] [place] [address] END OF REPORT
--- NOTE | 2019-01-03 14:58 | MORECARE ---
CASE MANAGEMENT DISCHARGE SUMMARY PATIENT: TRUPTI GRIFFITH UNIT: [id number] ADM DATE: 12/27/18 AGE: 68 : 48 SEX: M ROOM/BED: D.2216 AUTHOR: KEELEYDOC PHYSICIAN: REFERRING PHYSICIAN: AZEEM BUSTILLO MD DATE OF SERVICE: 01/03/19 Discharge Plan Patient Name: TRUPTI GRIFFITH Facility: [facility]:[place] : 1950 Planned Disposition: Inpatient Rehab Anticipated Discharge Date: Discharge Date: Expected LOS: Initial Reviewer: [id number] Initial Review Date: 12/27/2018 Generated: 01/03/19 3:57 pm Comments DCP- Discharge Planning Updated by [id number]: Ellen Agudelo on 01/03/19 1:[address] PATIENT WILL BE DISCHARGING HOME TODAY WITH HOME HEALTH WITH [facility] HIS DAUGHTER WILL BE THE ONE TO TAKE HIM HOME WHEN SHE GETS OFF WORK. CM WILL CONTINUE TO FOLLOW AND ASSIST WITH DC PLANNING NEEDED DCP- Discharge Planning Updated by [id number]: Ellen Agudelo on 01/03/19 11:[address] A P2P was set up to try to get him to inpatient rehab. He was denied in patient rehab, but could go to a skilled . He will have a 170.00/ per day co-pay to go to skilled. I have contacted [facility] and spoke with Kathie to let her know that he is discharging home where he is current with their services. CM will continue to follow and assist as needed DCP- Discharge Planning Updated by [id number]: Ellen Agudeol on 01/02/19 12:[address] IMM SERVED AND EXPLAINED, COPY GIVEN TO PATIENT. PATIENT WANTS AND WILL CONTINUE HOME HEALTH WITH [facility] HE DOES NOT HAVE ANY SKILLED DAYS LEFT. DCP- Discharge Planning Updated by [id number]: Ellen Agudelo on 12/30/18 2:[address] Patient Name: TRUPTI GRIFFITH Admission Status: ER Accout number: [id number] Admission Date: 12-27-2018 : 1950 Admission Diagnosis:DISORIENTATION, UNSPECIFIED Attending: AZEEM BUSTILLO Current LOS: 3 Anticipated DC Date: Planned Disposition: Inpatient Rehab Primary Insurance: [employer] CHOICE PPO [facility] ADVANT Discharge Planning Comments: CM met with patient to complete initial dc planning assessment. CM educated patient on the CM role and verbal consent given by patient to complete assessment. Patient lives at home with his step daughter and her . At discharge patient would like to go to our inpatient rehab if he can. CM discussed availability of home health, rehab services, and medical equipment. He stated that he has been at [facility] for 20 days not long ago. He has [facility] home health with OT,PT, and Nursing. He has a tub bench, walker, rollator, and elevated toilet seat. I explained to him about Skilled and having 20 days and needing 60 well days. Patient denied known discharge needs at this time. CM will continue to follow and will assist as needed with dc plans/needs. Clay Dry Press Operator: Ellen Agudelo DCPIA - Discharge Planning Initial Assessment Updated by [id number]: Ellen Agudelo on 12/30/18 3:31 pm * Is the patient Alert and Oriented? Yes * How many steps to enter\exit or inside your home? don't use * PCP INÉS * Pharmacy [facility] * Preadmission Environment Home with Family * ADLs Partial Dependent * Partial ADLs (Assistance needed) Ambulation * Equipment Elevated Toliet Seat Rolling Walker Shower Chair Tub Bench * List name and contact numbers for known caregivers / representatives who currently or will assist patient after discharge: GLO SERRANO [phone] * Verbal permission to speak to the caregivers and representatives has been obtained from the patient. N/A * Community resources currently utilized Home Health * Please name any agencies selected above. [facility] OT,PT, NURSE * Additional services required to return to the preadmission environment? Yes * Can the patient safely return to the preadmission environment? Yes * Has this patient been hospitalized within the prior 30 days at any hospital? No Coverage Notice Reviewer: [id number] - Ellen Agudelo Notice Issued Date-Time: 01/02/2019 14:00 Notice Type: IM Discharge Notice Notice Delivered To: Patient Relationship to Patient: Military Technology Specialist Name: Delivery Method: HAND - Hand Delivered Destiny Days: Prior Verbal Notification: Recipient Understood Notice: Yes Recipient Signature: Yes Med Rec Note Co-signed by Attending: Coverage Notice Comment: Last DP export: 01/03/19 1:48 p Patient Name: TRUPTI GRIFFITH Page [id number] at 1458 All edits/amendments must be made on the electronic document DICTATION DATE: 01/03/191456 WHARF HAND: BARRON 01/03/191456 RPT#: [id number] DC DATE: STATUS: ADM IN [facility] [address] [place] [address] END OF REPORT
== END 2019-01-03 18:33 | disposition home health service (06) | DRG 380 ==
LOC: D.ER 01:16 → D.MS 02:29
PROVIDERS: Family Medicine; Internal Medicine Gastroenterology; Internal Medicine Nephrology; ADMIT Emergency Medicine; ATTEND Emergency Medicine
PROC: 0DB58ZX Excision of Esophagus, Via Natural or Artificial Opening Endoscopic, Diagnostic (ICD-10-PCS; principal; 2019-01-02 07:03)
DX: K22.10 Ulcer of esophagus without bleeding (principal); G93.41 Metabolic encephalopathy; J18.9 Pneumonia, unspecified organism; J98.11 Atelectasis; N17.9 Acute kidney failure, unspecified; E11.649 Type 2 diabetes mellitus with hypoglycemia without coma; I48.0 Paroxysmal atrial fibrillation; E11.22 Type 2 diabetes mellitus with diabetic chronic kidney disease; I12.9 Hypertensive chronic kidney disease with stage 1 through stage 4 chronic kidney disease, or unspecified chronic kidney disease; M17.12 Unilateral primary osteoarthritis, left knee; R55 Syncope and collapse; E11.65 Type 2 diabetes mellitus with hyperglycemia; N18.3 Chronic kidney disease, stage 3 (moderate); Z95.0 Presence of cardiac pacemaker; E86.0 Dehydration; K25.9 Gastric ulcer, unspecified as acute or chronic, without hemorrhage or perforation; K26.9 Duodenal ulcer, unspecified as acute or chronic, without hemorrhage or perforation; K29.00 Acute gastritis without bleeding

== ENCOUNTER 2019-03-05 02:50 | Inpatient (IN) | payer MEDICARE ==
[~2019-03-05] VITALS: Ht 180.3 cm; Wt 136.4 kg
[~2019-03-05 02:50] MED LIST changes: +CARAFATE1 G PO; +LISINOPRIL10 MG PO; +NEURONTIN 300300 MG PO; +PEPCID AC20 MG PO; +PROTONIX40 MG PO; +SINGULAIR10 MG PO
[2019-03-05 03:26] VITALS: BP 170/93
[2019-03-05 03:28] LABS: BASOPHILS 0.3 % (0-2); HEMATOCRIT 37.3 % (42.0-54.0); HEMOGLOBIN 12.4 g/dL (13.5-17.5); IMMATURE GRANULOCYTES 1.9 % (0-5); LYMPHOCYTES 20.1 % (15-50); MCH 32.2 pg (26.0-34.0); MCHC 33.2 g/dL (31.0-37.0); MCV 96.9 fL (80.0-100.0); MEAN PLATELET VOLUME 9.7 fL (7.4-10.4); MONOCYTES 10.5 % (2-11); NEUTROPHILS 62.2 % (40-80); PLATELET COUNT 181 10x3/uL (130-400); RBC 3.85 10x6/uL (4.20-6.10); RDW 16.5 % (11.5-14.5); WBC 10.2 10x3/uL (4.8-10.8)
[2019-03-05 03:45] LABS: ALBUMIN 3.1 g/dL (3.4-5.0); ALKALINE PHOSPHATASE 65 U/L (46-116); ALT (SGPT) 30 U/L (10-68); BILIRUBIN - TOTAL 0.41 mg/dL (0.2-1.3); CALC OSMOLALITY 290 mosm/kg (275-300); CALCIUM 9.7 mg/dL (8.5-10.1); CARBON DIOXIDE 21.2 mmol/L (21.0-32.0); CHLORIDE - SERUM 105 mmol/L (98-107); CREATININE - SERUM 1.3 mg/dL (0.6-1.3); GLUCOSE 185 mg/dL (74-106); POTASSIUM - SERUM 4.1 mmol/L (3.5-5.1); PROTEIN - SERUM 7.3 g/dL (6.4-8.2); SODIUM 134 mmol/L (136-145); UREA NITROGEN 63 mg/dL (7-18); eGFR NON AFRICAN AMERICAN 58 mL/min (90-120)
[2019-03-05 03:53] LABS: CKMB 0.4 U/L (0.0-3.6); CREATINE KINASE 20 UL (21-232); MAGNESIUM - SERUM 1.9 mg/dL (1.8-2.4); PRO BNP 223 pg/mL (0-125); TROPONIN-I 0.021 ng/mL (0.000-0.060)
[2019-03-05 04:10] LABS: APPEARANCE CLEAR (CLEAR); BILIRUBIN NEGATIVE (NEGATIVE); COLOR STRAW (YELLOW); GLUCOSE NEGATIVE (NEGATIVE); KETONE NEGATIVE (NEGATIVE); NITRITE NEGATIVE (NEGATIVE); PROTEIN 1+ mg/dL (NEGATIVE); RED CELLS - URINE 0-5 /hpf (0-5); SPECIFIC GRAVITY 1.015 (1.005-1.020); UROBILINOGEN NORMAL (NORMAL); WHITE CELLS - URINE NSEEN /hpf (0-5)
--- NOTE | 2019-03-05 06:25 | NUR ---
STOP TIME ON LEVAQUIN AND NS IS 0625.
[2019-03-05 08:53] VITALS: BP 146/77
--- NOTE | 2019-03-05 11:34 | NUR ---
CALLED [employer] FOR TELEMETRY ORDERED. PER ZAHIRA, NONE AVAILABLE AT THIS TIME
[2019-03-05 13:57] VITALS: BMI 41.8
--- NOTE | 2019-03-05 13:57 | NUR ---
PLACED PT CATHETER ORDERED PT TOLERATED WELL USED 10CC TO INFLATE BALLOON. PT INITIAL OUT PUT IS 800. PT AHD TOWEL BETWEEN LEGS THAT WAS SOAKED WET FROM URINE. PT REFUSED TO GET UP WITH PT STATING HE WAS STILL DIZZY. BED IN LOWEST POSITION. CL IN REACH
--- NOTE | 2019-03-05 14:14 | NUR ---
PT IS WITHOUT DISTRESS.CALL LIGHT IN REACH
--- NOTE | 2019-03-05 20:00 | NUR ---
ALERT SITTING UP IN BED, DENIES NEEDS AT THIS TIME, SEE SHIFT ASSESSMENT, CALL LIGHT IN REACH
[2019-03-05 21:17] VITALS: BP 161/76
[2019-03-06 00:56] VITALS: BP 145/77
[2019-03-06 05:04] VITALS: BP 164/86
[2019-03-06 06:12] LABS: BASOPHILS 0.3 % (0-2); EOSINOPHILS 2.8 % (0-7); HEMATOCRIT 36.5 % (42.0-54.0); IMMATURE GRANULOCYTES 2.2 % (0-5); LYMPHOCYTES 20.5 % (15-50); MCH 31.5 pg (26.0-34.0); MCHC 32.9 g/dL (31.0-37.0); MCV 95.8 fL (80.0-100.0); MEAN PLATELET VOLUME 9.8 fL (7.4-10.4); NEUTROPHILS 64.2 % (40-80); PLATELET COUNT 196 10x3/uL (130-400); RBC 3.81 10x6/uL (4.20-6.10); RDW 16.6 % (11.5-14.5); WBC 12.2 10x3/uL (4.8-10.8)
[2019-03-06 06:47] LABS: CALC OSMOLALITY 286 mosm/kg (275-300); CALCIUM 10.2 mg/dL (8.5-10.1); CARBON DIOXIDE 21.9 mmol/L (21.0-32.0); CHLORIDE - SERUM 106 mmol/L (98-107); CKMB 0.4 U/L (0.0-3.6); CREATINE KINASE 17 UL (21-232); CREATININE - SERUM 1.1 mg/dL (0.6-1.3); GLUCOSE 84 mg/dL (74-106); MAGNESIUM - SERUM 2.1 mg/dL (1.8-2.4); POTASSIUM - SERUM 4.2 mmol/L (3.5-5.1); SODIUM 138 mmol/L (136-145); TROPONIN-I 0.019 ng/mL (0.000-0.060); UREA NITROGEN 46 mg/dL (7-18); eGFR NON AFRICAN AMERICAN 70 mL/min (90-120)
[2019-03-06 07:34] VITALS: BMI 41.9
--- NOTE | 2019-03-06 07:34 | NUR ---
PT IS RESTING IN BED WITH EYES OPEN. RESPIRATIONS ARE EVEN AND UNLABORED. PT DENIES PRESENCE OF PAIN AT THIS TIME. CABRERA CATHETER NOTED AND IS DRAINING WITHOUT DIFFICULTY. PT WITH 2+ EDEMA TO BILATERAL LOWER EXTREMITIES WITH DISCOLORATION. THIS IS "NORMAL" PER PT. PT REPORTS OCCASIONAL NUMBNESS TO BILATERAL LOWER EXTREMITIES, BUT DENIES NUMBNESS/TINGLING AT PRESENT. PT DENIES PRESENCE OF N/V AT THIS TIME. PT DENIES PRESENCE OF DYSPNEA AND/OR SOB AT THIS TIME. PT DENIES FURTHER NEEDS. BED IS IN THE LOWEST POSITION. CALL LIGHT AND BEDSIDE TABLE ARE WITHIN REACH. SIDE RAILS X2. BED ALARM IS ON AND WORKING. WILL CONT TO MONITOR.
[2019-03-06 08:58] VITALS: BP 141/75
--- NOTE | 2019-03-06 09:00 | NUR ---
TELEMETRY PLACED ON PT.
--- NOTE | 2019-03-06 09:27 | NUR ---
Bilateral lower extremities are edematous, discolored and hairless. Pt states he has had this for many years. There are no open wounds. He states he has tried many things throughout the years and what he has found that works the best is to leave open to air and elevate. He states he does this at home and home health monitors. Pt states he will have his primary nurse get in touch with me if any changes occur.
--- NOTE | 2019-03-06 10:06 | NUR ---
PT REPORTS SLIGHT NAUSEA WITH ADMINISTRATION OF MORNING MEDS. WILL ADDRESS. SEE EMAR.
--- NOTE | 2019-03-06 11:31 | MORECARE ---
CASE MANAGEMENT DISCHARGE SUMMARY PATIENT: TRUPTI GRIFFITH UNIT: [id number] ADM DATE: 03/05/19 AGE: 68 : 48 SEX: M ROOM/BED: D.2225 AUTHOR: ELAYNE MINA PHYSICIAN: REFERRING PHYSICIAN: BENJIE BUSTILLO MD DATE OF SERVICE: 03/06/19 Discharge Plan Patient Name: TRUPTI GRIFFITH [facility] : 1950 Planned Disposition: Home Hlth Svc w Plan Readm Anticipated Discharge Date: Discharge Date: Expected LOS: Initial Reviewer: [email or web address] Initial Review Date: 03/06/2019 Generated: 03/06/19 12:31 pm Patient Name: TRUPTI GRIFFITH Page [phone] at 1131 All edits/amendments must be made on the electronic document DICTATION DATE: 03/06/19 113 MODELING DIRECTOR: BARRON 03/06/19 1131 RPT#: [id number] DC DATE: STATUS: ADM IN [facility] [address] [place] [address] END OF REPORT
--- NOTE | 2019-03-06 11:39 | MORECARE ---
CASE MANAGEMENT DISCHARGE SUMMARY PATIENT: TRUPTI GRIFFITH UNIT: [id number] ADM DATE: 03/05/19 AGE: 68 : [birth year] SEX: M ROOM/BED: D.2225 AUTHOR: ELAYNE MINA PHYSICIAN: REFERRING PHYSICIAN: BENJIE BUSTILLO MD DATE OF SERVICE: 03/06/19 Discharge Plan Patient Name: TRUPTI GRIFFITH Facility: [facility]:[place] : 1950 Planned Disposition: Home Hlth Svc w Plan Readm Anticipated Discharge Date: Discharge Date: Expected LOS: Initial Reviewer: [email or web address] Initial Review Date: 03/06/2019 Generated: 03/06/19 12:39 pm Comments DCP- Discharge Planning Updated by [email or web address]: Shavon Dillard on 03/06/19 10:[address] Patient Name: TRUPTI GRIFFITH Admission Status: ER Accout number: [id number] Admission Date: 03-05-2019 : 1950 Admission Diagnosis: Attending: AZEEM BUSTILLO Current LOS: 1 Anticipated DC Date: Planned Disposition: Home Hlth Svc w Plan Readm Primary Insurance: [employer] CHOICE PPO M[employer] ADVANT Discharge Planning Comments: CM met with patient to complete initial dc planning assessment. CM educated patient on the CM role and verbal consent given by patient to complete assessment. Patient lives at home with his step daughter (Heather) and her . At discharge patient plans to return and feels this is a safe discharge. CM discussed availability of home health, rehab services, and medical equipment. Patient states he is current with [facility] for PT and nursing, they see him twice a week. States he would like to have OT resumed on discharge so that he could have help with his showers again. I called [facility] and spoke to Virgie and she states they can resume OT, PT and Nursing with an order on discharge. CM will continue to follow and will assist as needed with dc plans/needs. Sprinkler Inspector: Shavon Dillard DCPIA - Discharge Planning Initial Assessment Updated by [id number]: Shavon Dillard on 03/06/19 11:34 am * Is the patient Alert and Oriented? Yes * How many steps to enter\exit or inside your home? 2/0 * PCP Dr. Dc * Pharmacy [facility] * Preadmission Environment Home with Family * ADLs Partial Dependent * Partial ADLs (Assistance needed) Ambulation * Equipment Cane Elevated Toliet Seat Glucometer Other Shower Chair Tub Bench Walker * Other Equipment Rollator * List name and contact numbers for known caregivers / representatives who currently or will assist patient after discharge: Heather Bull Mojica DTR - [phone] * Verbal permission to speak to the caregivers and representatives has been obtained from the patient. Yes * Community resources currently utilized Home Health * Please name any agencies selected above. [facility] * Additional services required to return to the preadmission environment? No * Can the patient safely return to the preadmission environment? Yes * Has this patient been hospitalized within the prior 30 days at any hospital? No Coverage Notice Reviewer: [email or web address] Walter Dillard Notice Issued Date-Time: 03/06/2019 11:37 Notice Type: Patient Choice Letter Notice Delivered To: Patient Relationship to Patient: Self Cte Teacher Name: Delivery Method: HAND - Hand Delivered Destiny Days: Prior Verbal Notification: Recipient Understood Notice: Yes Recipient Signature: Yes Med Rec Note Co-signed by Attending: Coverage Notice Comment: [facility]IT for [facility] Last DP export: 03/06/19 10:31 a Patient Name: TRUPTI GRIFFITH Page [phone] at 1139 All edits/amendments must be made on the electronic document DICTATION DATE: 03/06/191137 ROAD GRADER: BARRON 03/06/19 1138 RPT#: [id number] DC DATE: STATUS: ADM IN [facility] [address] [place] [address] END OF REPORT
--- NOTE | 2019-03-06 12:27 | NUR ---
Nutrition Follow Up: Chart reviewed. Noted pt with some nausea today. Diet: ADA BM: 03/05/19 Labs reviewed Meds noted including Lasix Rec continue current diet as tolerated. RD following.
[2019-03-06 13:26] VITALS: BP 137/79
--- NOTE | 2019-03-06 13:30 | NUR ---
INCENTIVE SPIROMETER GIVEN TO PT. PT EDUCATED ON USE OF I.S. PT VERBALIZES UNDERSTANDING. PT WITH RETURN DEMONSTRATION IF I.S. PT REACHEING 500 ON I.S. PT DENIES FURTHER NEEDS. BED IS IN THE LOWEST POSITION. CALL LIGHT AND BEDSIDE TABLE ARE WITHIN REACH. SIDE RAILS X 2. BED ALARM IS ON AND WORKING. WILL CONT TO MONITOR.
[2019-03-06 16:30] LABS: PHOSPHOROUS 2.9 mg/dL (2.5-4.9)
[2019-03-06 16:58] VITALS: Ht 180.3 cm; Wt 136.4 kg
[2019-03-06 18:00] VITALS: BP 153/84
--- NOTE | 2019-03-06 19:23 | NUR ---
OT NOTE: PT COMPLETED SUPINE TO SIT WITH MIN A. PT COMPLETED EOB SITTING WITH STATIC BALANCE SECONDARY TO DIZZINESS. PT COMPLETED GROOMING TASK AT EOB WITH CGA. THANK YOU, HANK WARE
[2019-03-06 20:00] VITALS: BP 154/76
--- NOTE | 2019-03-06 20:00 | NUR ---
ALERT SITTING UP IN BED, NO APPARENT DISTRESS, SEE SHIFT ASSESSMENT, CALL LIGHT IN REACH
[2019-03-07] VITALS: BP 131/73
[2019-03-07 04:00] VITALS: BP 129/71
[2019-03-07 05:06] LABS: BASOPHILS 0.4 % (0-2); EOSINOPHILS 4.3 % (0-7); HEMATOCRIT 37.9 % (42.0-54.0); HEMOGLOBIN 12.5 g/dL (13.5-17.5); IMMATURE GRANULOCYTES 2.4 % (0-5); LYMPHOCYTES 26.3 % (15-50); MCV 96.9 fL (80.0-100.0); MEAN PLATELET VOLUME 10.3 fL (7.4-10.4); MONOCYTES 13.3 % (2-11); NEUTROPHILS 53.3 % (40-80); PLATELET COUNT 205 10x3/uL (130-400); RBC 3.91 10x6/uL (4.20-6.10); RDW 16.8 % (11.5-14.5); WBC 11.5 10x3/uL (4.8-10.8)
[2019-03-07 05:27] LABS: ANION GAP 13.4 mmol/L (8-16); CALCIUM 10.3 mg/dL (8.5-10.1); CARBON DIOXIDE 25.6 mmol/L (21.0-32.0); PROTEIN - SERUM 7.2 g/dL (6.4-8.2)
[2019-03-07 05:28] LABS: CREATININE - SERUM 1.4 mg/dL (0.6-1.3)
--- NOTE | 2019-03-07 08:00 | NUR ---
ALERT AND ORIENTED WITH TELEMETRY INTACT. DENIES ANY CHEST PAIN OR DISCOMFORT. DARRIUS WITH HAND GRASP EQUAL.MECLIZINE GIVEN FOR VERTIGO. FALL RISK PRECAUTIONS IN PLACE. DENIES ANY PAIN OR DISCOMFORT AT THIS TIME. ENCOURAGED TO GET UP WITH ASSIST TI IMPROVE STRENGTH AND ENDURANCE. ENCOURAGED TO USE CALL LIGHT FOR ASSIST.
[2019-03-07 09:49] VITALS: BP 117/72
[2019-03-07 14:38] VITALS: BP 150/94
--- NOTE | 2019-03-07 15:43 | NUR ---
Rehab Prescreening Consult recieved and the chart has been reviewed. This patient is a [employer] managed Medicare and will require a preauth for the ARU. All information will be submitted to them for their review. La Man RN Clinical Liaison, Rehab
[2019-03-07 18:02] VITALS: BP 139/78
--- NOTE | 2019-03-07 18:25 | NUR ---
RESTING IN BED. DENIES NEEDS.
--- NOTE | 2019-03-07 19:00 | NUR ---
REPORT RECEIVED AND CARE OF PT ASSUMED. PT LYING IN HIGH GONCALVES'S POSITION WITH EYES CLOSED. IV IN LEFT FA SALINE LOCKED. TELEMETRY IN PLACE AND READING 65 PACED AT THIS ASSESSMENT. CABRERA CATHETER DRAINING TO GRAVITY WITH YELLOW URINE IN COLLECTION BAG. WILL MONITOR FOR NEEDS.
[2019-03-07 20:00] VITALS: BP 104/67
--- NOTE | 2019-03-07 21:28 | NUR ---
HS MEDICATIONS GIVEN. FSBS 161 THIS CHECK REQUIRING COVERAGE WITH 8 UNITS OF INSULIN PER SLIDING SCALE. HS SNACK GIVEN: MILK AND LISA CRACKERS PER DIET ORDER.
[2019-03-08] VITALS: BP 108/65
--- NOTE | 2019-03-08 00:02 | NUR ---
PT BATHED AND ALL LINENS AND GOWN CHANGED. PT HAS SIGNIFICANT REDNESS IN INGUINAL FOLD AREAS. RECEIVED ORDER FOR NYSTATIN POWDER TO APPLY TID PRN.
[2019-03-08 03:00] VITALS: BP 108/79
[2019-03-08 06:10] LABS: BASOPHILS 0.4 % (0-2); EOSINOPHILS 4.2 % (0-7); HEMATOCRIT 37.8 % (42.0-54.0); HEMOGLOBIN 12.5 g/dL (13.5-17.5); IMMATURE GRANULOCYTES 2.8 % (0-5); LYMPHOCYTES 20.4 % (15-50); MCHC 33.1 g/dL (31.0-37.0); MCV 96.7 fL (80.0-100.0); MEAN PLATELET VOLUME 10.5 fL (7.4-10.4); MONOCYTES 15.2 % (2-11); PLATELET COUNT 202 10x3/uL (130-400); RBC 3.91 10x6/uL (4.20-6.10); RDW 16.4 % (11.5-14.5)
[2019-03-08 06:17] LABS: WBC 16.2 10x3/uL (4.8-10.8)
[2019-03-08 06:57] LABS: ALBUMIN 2.9 g/dL (3.4-5.0); ANION GAP 13.5 mmol/L (8-16); BILIRUBIN - TOTAL 0.81 mg/dL (0.2-1.3); CALCIUM 10.2 mg/dL (8.5-10.1); CARBON DIOXIDE 25.4 mmol/L (21.0-32.0); POTASSIUM - SERUM 3.9 mmol/L (3.5-5.1); PROTEIN - SERUM 7.1 g/dL (6.4-8.2)
[2019-03-08 06:59] LABS: CREATININE - SERUM 1.8 mg/dL (0.6-1.3)
--- NOTE | 2019-03-08 08:00 | NUR ---
ALERT AND ORIENTED X3 WITH C/O VERTIGO. LUNGS CTA WITH ABDOMEN OBESE WITH BS NOTEDX4. CABRERA CATH PATENT WITH MAICOL URINE NOTED. C/O OF NAUSEA WITH ZOFRAN GIVEN. ENCOURAGED TO USE CALL LIGHT FOR ASSIST.
[2019-03-08 09:34] VITALS: BP 123/66
[2019-03-08 13:09] VITALS: BP 148/81
[2019-03-08 16:26] VITALS: BP 150/67
--- NOTE | 2019-03-08 19:15 | NUR ---
RECEIVED CARE FROM DAY NURSE. LYING IN BED WATCHING TV. REPORTS NO NEEDS AT THIS TIME. CALL LIGHT AT SIDE. IV INFUSING TO LEFT FA. CABRERA TO GRAVITY.
[2019-03-08 20:18] VITALS: BP 139/77
--- NOTE | 2019-03-08 21:06 | NUR ---
PT WOULD LIKE GI CONSULT FOR ONGOING N/V.
--- NOTE | 2019-03-09 01:55 | NUR ---
IV IN LEFT FA LEAKING AT INSERTION SITE. DC'D WITH TIP INTACT. RESITED TO RIGHT FA. 22 GUAGE X2 STICKS.
--- NOTE | 2019-03-09 02:10 | NUR ---
PUMP CONTINUALLY BEEPING BUT IV FLUSHES WELL. NEW IV SITED TO RIGHT HAND 22 GAUGE X2 STICKS. IV IN RIGHT FA LEFT IN PLACE DUE TO NOT BEING BAD.
[2019-03-09 05:27] LABS: BASOPHILS 0.3 % (0-2); HEMATOCRIT 37.6 % (42.0-54.0); HEMOGLOBIN 12.5 g/dL (13.5-17.5); IMMATURE GRANULOCYTES 3.7 % (0-5); LYMPHOCYTES 22.4 % (15-50); MCH 31.8 pg (26.0-34.0); MCHC 33.2 g/dL (31.0-37.0); MCV 95.7 fL (80.0-100.0); MEAN PLATELET VOLUME 10.3 fL (7.4-10.4); MONOCYTES 13.6 % (2-11); PLATELET COUNT 192 10x3/uL (130-400); RBC 3.93 10x6/uL (4.20-6.10); RDW 16.2 % (11.5-14.5); WBC 13.2 10x3/uL (4.8-10.8)
[2019-03-09 05:34] VITALS: BP 145/75
[2019-03-09 05:47] LABS: ALBUMIN 2.8 g/dL (3.4-5.0); ANION GAP 10.8 mmol/L (8-16); BILIRUBIN - TOTAL 1.15 mg/dL (0.2-1.3); CALCIUM 9.9 mg/dL (8.5-10.1); CARBON DIOXIDE 28.2 mmol/L (21.0-32.0); PROTEIN - SERUM 6.9 g/dL (6.4-8.2)
[2019-03-09 09:03] VITALS: BP 117/64
--- NOTE | 2019-03-09 09:47 | NUR ---
ALERT AND ORIENTED WITH ABDOMEN BOESE WITH ABDOMEN DISTENDED. BS HYPOACTIVE X4 AND DENIES ANY FLATULANCE. NO PERIPHERAL EDEMA. ENCOURAGED PATIENT TO GET OOB AND POSSIBLE AMBULATION WITH THERAPY.PT. VERBALIZED UNDERSTANDING. CABRERA CATH PATENT WITH CLEAR MAICOL URINE. TEMETRY INTACT. DENIES ANY NAUSEA AT THIS TIME
[2019-03-09 12:40] VITALS: BP 106/68
[2019-03-09 17:09] VITALS: BP 126/58
--- NOTE | 2019-03-09 19:15 | NUR ---
RECEIVED CARE FROM DAY NURSE. SITTING UP IN BED WATCHING TV. REPORTS NO NEEDS AT THIS TIME. CALL LIGHT AT SIDE. IV SL TO RIGHT HAND AND RIGHT FA. CABRERA TO GRAVITY.
[2019-03-09 20:00] VITALS: BP 132/63
[2019-03-10] VITALS: BP 92/51
--- NOTE | 2019-03-10 01:34 | NUR ---
I have reviewed this patient and I concur with the Shift Assessment completed by the Licensed Practical Nurse today this shift.
[2019-03-10 03:00] VITALS: BP 97/52
[2019-03-10 04:44] LABS: BASOPHILS 0.5 % (0-2); EOSINOPHILS 5.8 % (0-7); HEMATOCRIT 36.7 % (42.0-54.0); HEMOGLOBIN 12.2 g/dL (13.5-17.5); IMMATURE GRANULOCYTES 2.9 % (0-5); MCH 32.1 pg (26.0-34.0); MCHC 33.2 g/dL (31.0-37.0); MCV 96.6 fL (80.0-100.0); MEAN PLATELET VOLUME 10.6 fL (7.4-10.4); MONOCYTES 13.7 % (2-11); NEUTROPHILS 58.1 % (40-80); PLATELET COUNT 178 10x3/uL (130-400); RDW 16.2 % (11.5-14.5)
[2019-03-10 04:59] LABS: ALBUMIN 2.9 g/dL (3.4-5.0); ANION GAP 11.1 mmol/L (8-16); BILIRUBIN - TOTAL 0.88 mg/dL (0.2-1.3); CARBON DIOXIDE 26.2 mmol/L (21.0-32.0); CREATININE - SERUM 2.4 mg/dL (0.6-1.3); POTASSIUM - SERUM 4.3 mmol/L (3.5-5.1)
[2019-03-10 07:56] VITALS: BP 111/66
--- NOTE | 2019-03-10 10:07 | EC ---
PATIENT:TRUPTI GRIFFITH DATE OF SERVICE: 03/05/19 SEX: M MEDICAL RECORD: [id number] DATE OF : [birth year] LOCATION:[facility] AGE OF PATIENT: 68 ADMISSION DATE: 03/05/19 REFERRING PHYSICIAN: INTERPRETING PHYSICIAN: ADA SIMPSON MD ECHOCARDIOGRAM REPORT ECHO CHARGES 4 ECHO COMPLETE Date: 03/07/19 CLINICAL DIAGNOSIS: DIZZINESS ECHOCARDIOGRAPHIC MEASUREMENTS (adult normal given) AC root (d.<3.7cm) 3.7 cm LV Septum d (<1.2 cm> 1.2 cm Valve Excursion 2.0 cm LV Septum (systole) 1.8 cm Left Atria (s.<4.0cm> 4.5 cm LVPW d(<1.2cm) 1.4 cm RV (d.<2.3cm) 3.0 cm LVPW (sytole) 1.5 cm LV diastole(<5.6CM) 5.9 cm MV E-F(>70mm/sec) cm LV systole 4.5 cm LVOT Diameter 2.4 cm MV exc.(>10mm) cm Est.ejection fraction (50-75%) % DOPPLER: LVIT cm/sec A 70 cm/sec E 43 cm/sec LA cm/sec RVSP 28.4 mmHg LVOT 66 cm/sec AOP1/2T m/s Asc. Ao 115 cm/sec RVOT 76 cm/sec RA cm/sec PA 87 cm/sec AV Gradient Peak 5.3 mmHg AV Mean 2.3 mmHg AV Area 2.3 cm MV Gradient Peak 2.3 mmHg MV Mean 1.1 mmHg MV Area cm COMMENTS: Film Splicer: Soni [facility] Placement Specialist: 3 Dr. [place] TAPE# PACS Pericardial Effusion N DATE OF SERVICE: Adequate 2D echo, color flow, spectral Doppler, and M-mode. Borderline LVH. LV internal dimension is normal. Wall motion is normal. EF greater than or equal to 55%. Aortic valve is tricuspid. No evidence of stenosis by Doppler interrogation. Left atrium is dilated at 4.5 cm. Mitral valve shows no prolapse. Trace MR. Right-sided chamber size is grossly normal. Mild TR. ECHOCARDIOGRAM REPORT [id number] TRUPTI GRIFFITH TRANSINT:[id number] Voice Confirmation ID: [id number] DOCUMENT ID: [id number] ADA SIMPSON MD at 1007 CC: [id number] DICTATION DATE: 03/07/19 1319 DOUGHNUT MAKER: 03/07/19 2219 ADM IN [place] [id number] [place] [id number]
[2019-03-10 12:37] VITALS: BP 96/49
--- NOTE | 2019-03-10 15:58 | NUR ---
I have reviewed this patient and I concur with the Shift Assessment completed by the Licensed Practical Nurse today this shift.
--- NOTE | 2019-03-10 16:56 | NUR ---
OT NOTE: PT COMPLETED SUPINE TO SIT WITH MIN A. PT COMPLETED SIT TO STAND WITH MIN A. PT COMPLETED EOB SITTIG WITH CGA. PT COMPLETED HYGIENE WHILE STANDING WITH MAX A. THANK YOU, HANK WARE
[2019-03-10 17:23] VITALS: BP 104/58
--- NOTE | 2019-03-10 20:00 | NUR ---
ASSESSMENT PER FLOWSHEET. IV PATENT RT HAND AND LEFT HAND BOTH SALINE LOCKED. CABRERA TO BEDSIDE DRAINAGE WITH YELLOW URINE NOTED. SR UP X2 CALL LIGHT WITHIN REACH RODDY BED ALARM ON. YELLOW GOWN AND SOCKS ON.
--- NOTE | 2019-03-10 21:00 | NUR ---
MEDS GIVEN PER DEC. UNOS=[id number], NO COVERAGE NEEDED.
[2019-03-10 21:31] VITALS: BP 96/60
--- NOTE | 2019-03-11 | NUR ---
EYES CLOSED RESPIRATIONS WITH EASE AND UNLABORED.
[2019-03-11 00:18] VITALS: BP 101/54
--- NOTE | 2019-03-11 03:00 | NUR ---
RESTING QUIETLY RESPIRATIONS WITH EASE AND UNLABORED.
[2019-03-11 04:13] LABS: BASOPHILS 0.2 % (0-2); EOSINOPHILS 7.1 % (0-7); HEMATOCRIT 34.6 % (42.0-54.0); HEMOGLOBIN 11.4 g/dL (13.5-17.5); IMMATURE GRANULOCYTES 3.5 % (0-5); LYMPHOCYTES 23.9 % (15-50); MCH 31.3 pg (26.0-34.0); MCHC 32.9 g/dL (31.0-37.0); MCV 95.1 fL (80.0-100.0); MEAN PLATELET VOLUME 10.5 fL (7.4-10.4); NEUTROPHILS 52.3 % (40-80); PLATELET COUNT 180 10x3/uL (130-400); RBC 3.64 10x6/uL (4.20-6.10); RDW 16.1 % (11.5-14.5); WBC 13.1 10x3/uL (4.8-10.8)
[2019-03-11 04:34] LABS: ALBUMIN 2.6 g/dL (3.4-5.0); ANION GAP 12.1 mmol/L (8-16); BILIRUBIN - TOTAL 0.88 mg/dL (0.2-1.3); CALCIUM 9.3 mg/dL (8.5-10.1); CARBON DIOXIDE 25.2 mmol/L (21.0-32.0); CREATININE - SERUM 2.5 mg/dL (0.6-1.3); POTASSIUM - SERUM 4.3 mmol/L (3.5-5.1); PROTEIN - SERUM 6.5 g/dL (6.4-8.2)
--- NOTE | 2019-03-11 05:00 | NUR ---
COMPLETE BED BATH WITH LINENS CHANGE DONE.
[2019-03-11 05:03] VITALS: BP 112/60
--- NOTE | 2019-03-11 06:19 | NUR ---
MEDS GIVEN PER DEC. XICK=[id number]. REGULAR INSULIN 2 UNITS GIVEN SUBC PER S/S RT ARM.
--- NOTE | 2019-03-11 08:00 | NUR ---
ASSESSMENT PER FLOW SHEET. PT IS WITHOUT DISTRESS.FALL PREVENTION IN PLACE WITH RODDY. DOOR OPEN.
[2019-03-11 08:38] VITALS: BP 98/51
--- NOTE | 2019-03-11 09:56 | MORECARE ---
CASE MANAGEMENT DISCHARGE SUMMARY PATIENT: TRUPTI CHRISTIANSON UNIT: [id number] ADM DATE: 03/05/19 AGE: 68 : 46 SEX: M ROOM/BED: D.2225 AUTHOR: KEELEY,DOC PHYSICIAN: REFERRING PHYSICIAN: BENJIE BUSTILLO MD DATE OF SERVICE: 03/11/19 Discharge Plan Patient Name: TRUPTI CHRISTIANSON Facility: [facility]:[place] : 1950 Planned Disposition: Home Hlth Svc w Plan Readm Anticipated Discharge Date: Discharge Date: Expected LOS: Initial Reviewer: [email or web address] Initial Review Date: 03/06/2019 Generated: 03/11/19 10:55 am Comments DCP- Discharge Planning Updated by [id number]: Shavon Dillard on 03/11/19 8:[address] I spoke with the patient this morning again about discharge planning. He states that he would still like inpatient rehab at [facility], I informed him that he would need authorization from his insurance company and they may suggest skilled therapy. He signed a [facility] form for [facility]. I spoke with Adrianne Christianson in inpatient rehab and she states they are continuing to follow him. CM will continue to follow and assist with discharge planning/needs. DCP- Discharge Planning Updated by [id number]: Shavon Dillard on 03/06/19 10:[address] Patient Name: TRUPTI CHRISTIANSON Admission Status: ER Accout number: [id number] Admission Date: 03-05-2019 : 1950 Admission Diagnosis: Attending: AZEEM BUSTILLO Current LOS: 1 Anticipated DC Date: Planned Disposition: Home Hlth Svc w Plan Readm Primary Insurance: [employer] CHOICE PPO MCR [facility] Discharge Planning Comments: CM met with patient to complete initial dc planning assessment. CM educated patient on the CM role and verbal consent given by patient to complete assessment. Patient lives at home with his step daughter (Heather) and her . At discharge patient plans to return and feels this is a safe discharge. CM discussed availability of home health, rehab services, and medical equipment. Patient states he is current with [facility] for PT and nursing, they see him twice a week. States he would like to have OT resumed on discharge so that he could have help with his showers again. I called [facility] and spoke to Virgie and she states they can resume OT, PT and Nursing with an order on discharge. CM will continue to follow and will assist as needed with dc plans/needs. Felting Machine Operator Helper: Shavon Dillard DCPIA - Discharge Planning Initial Assessment Updated by [email or web address]: Shavon Dillard on 03/06/19 11:34 am * Is the patient Alert and Oriented? Yes * How many steps to enter\exit or inside your home? 2/0 * PCP Dr. Dc * Pharmacy [facility] * Preadmission Environment Home with Family * ADLs Partial Dependent * Partial ADLs (Assistance needed) Ambulation * Equipment Cane Elevated Toliet Seat Glucometer Other Shower Chair Tub Bench Walker * Other Equipment Rollator * List name and contact numbers for known caregivers / representatives who currently or will assist patient after discharge: Heather Mojica DTR - [phone] * Verbal permission to speak to the caregivers and representatives has been obtained from the patient. Yes * Community resources currently utilized Home Health * Please name any agencies selected above. [facility] * Additional services required to return to the preadmission environment? No * Can the patient safely return to the preadmission environment? Yes * Has this patient been hospitalized within the prior 30 days at any hospital? No Coverage Notice Reviewer: [email or web address] Walter Dillard Notice Issued Date-Time: 03/06/2019 11:37 Notice Type: Patient Choice Letter Notice Delivered To: Patient Relationship to Patient: Self Fish Hatchery Superintendent Name: Delivery Method: HAND - Hand Delivered Desitny Days: Prior Verbal Notification: Recipient Understood Notice: Yes Recipient Signature: Yes Med Rec Note Co-signed by Attending: Coverage Notice Comment: [facility] for [facility] Reviewer: [email or web address] Walter Dillard Notice Issued Date-Time: 03/11/2019 9:48 Notice Type: Patient Choice Letter Notice Delivered To: Patient Relationship to Patient: Self Fish Hatchery Superintendent Name: Delivery Method: HAND - Hand Delivered Destiny Days: Prior Verbal Notification: Recipient Understood Notice: Yes Recipient Signature: Yes Med Rec Note Co-signed by Attending: Coverage Notice Comment: [facility]IT for Jessica Lofton DP export: 03/06/19 10:39 a Patient Name: TRUPTI CHRISTIANSON Page [phone] at 0956 All edits/amendments must be made on the electronic document DICTATION DATE: 03/11/19954 AGENT PRODUCER: BARRON 03/11/19954 RPT#: [id number] DC DATE: STATUS: ADM IN [facility] [address] [place] [address] END OF REPORT
--- NOTE | 2019-03-11 11:44 | NUR ---
CALL TO PHARMACY FOR INSULIN,SPOKE WITH BENJIE
[2019-03-11 13:07] VITALS: BP 86/47
--- NOTE | 2019-03-11 15:06 | NUR ---
PT DOES NOT WANT BREATHING TX ANYMORE, STATED HE HATES THEM AND FEELS LIKE HE DOESNT NEED THEM WOULD LIKE TX PRN
--- NOTE | 2019-03-11 16:02 | NUR ---
OT NOTE: PT COMPLETED SIT TO STAND WITH MOD A. PT COMPLETED TRANSFER WITH MOD A. PT COMPLETED HYGIENE WITH MAX A. THANK YOU,HANK WARE
--- NOTE | 2019-03-11 16:02 | NUR ---
OT NOTE: PT UP IN CHAIR AND REQUESTING TO GO BACK TO BED SO THAT HE CAN USE BED LEE. WENT TO LOOK FOR BARIATRIC BS COMMODE, BUT UNABLE TO LOCATE ONE FROM EITHER SIDE. PT STATED THAT HE WAS FATIGUED FROM SITTING UP IN CHAIR. ASSISTED PT WITH SIT TO STAND WITH MOD ASSIST AND USE OF RW; ABLE TO TAKE A FEW STEPS FROM CHAIR TO BED; SIT TO SUPINE WITH MOD ASSIST. MOD ASSIST FOR ROLLING SIDE TO SIDE FOR BEDPAN PLACEMENT. PT UNABLE TO PERFORM PERINEAL CARE WITH USE OF BED LEE. WILL CONTINUE TO LOOK FOR BS COMMODE. DAVINA ROSAS, OTR/L
[2019-03-11 16:40] VITALS: BP 113/54
--- NOTE | 2019-03-11 16:52 | NUR ---
COMPLAINS OF IV IN HAND BURNING. IV DCD FROM RIGHT HAND WITH CATH TIP INTACT.IV SITED TO RIGHT UPPER ARM X1 STICK USING ASEPTIC TECH,22G.
--- NOTE | 2019-03-11 19:04 | NUR ---
REMAINS WITHOUT CHANGE FROM INITIAL SHIFT ASSESSMENT.CONT PLAN OF CARE
[2019-03-11 20:00] VITALS: BP 112/53
--- NOTE | 2019-03-11 20:00 | NUR ---
ASSESSMENT PER FLOWSHEET. IV PATENT RT UPPER ARM MEDS COMPLETED AND IV CONVERTED TO SALINE LOCK. CABRERA TO BEDSIDE DRAINAGE WITH YELLOW URINE.
--- NOTE | 2019-03-11 22:10 | NUR ---
MEDS GIVEN PER DEC. C/O PAIN TO OLD RT HAND IV SITE. TYLENOL 650MG PO GIVEN FOR PAIN CONTROL. DOJQ=[id number] REFUSED COVERAGE.
[2019-03-12] VITALS: BP 128/61
--- NOTE | 2019-03-12 | NUR ---
EYES CLOSED RESPIRATIONS WITH EASE AND UNLABORED.
[2019-03-12 04:30] VITALS: BP 117/69
--- NOTE | 2019-03-12 04:52 | NUR ---
RESTING QUIETLY DENIES NEEDS.
--- NOTE | 2019-03-12 07:15 | NUR ---
PT ALERT AND ORIENTED. NO C/O PAIN. NO S/S OF ACUTE DISTRESS NOTED. SCDS PRESENT. CABRERA CATHETER PRESENT. ON ELECTROLYTE PROTOCOL. PACEMAKER PRESENT, ON TELEMETRY 68 PACED. PT ACHS. IV TO RIGHT UPPER ARM, SL. SITE PATENT WITHOUT REDNESS OR SWELLING. PT DENIES ANYTHING FURTHER AT THIS TIME. CALL LIGHT IN REACH. WILL CONTINUE TO MONITOR.
--- NOTE | 2019-03-12 08:51 | NUR ---
Received wound care consult due to yeast/rash. Nystatin is being applied to area as per MD orders.
[2019-03-12 09:22] VITALS: BP 111/57
[2019-03-12 09:43] LABS: ANION GAP 14.4 mmol/L (8-16); CALCIUM 9.8 mg/dL (8.5-10.1); CARBON DIOXIDE 24.2 mmol/L (21.0-32.0); CREATININE - SERUM 1.9 mg/dL (0.6-1.3); POTASSIUM - SERUM 4.6 mmol/L (3.5-5.1)
--- NOTE | 2019-03-12 10:00 | NUR ---
PT RESTING IN BED, EYES CLOSED. RESPIRATIONS EVEN AND UNLABORED. AROUSES TO VOICE. ALERT AND ORIENTED. NO C/O PAIN. NO S/S OF ACUTE DISTRESS NOTED. SCDS PRESENT. PT ON TELEMETRY 68 PACED. PACEMAKER PRESENT. PT HAS A CABRERA. ON ELECTROLYTE PROTOCOL. PT ACHS. IV TO RIGHT UPPER ARM, SL. SITE PATENT WITHOUT REDNESS OR SWELLING. PT DENIES ANYTHING FURTHER AT THIS TIME. CALL LIGHT IN REACH. WILL CONTINUE TO MONITOR.
[2019-03-12 10:48] LABS: HEMATOCRIT 34.8 % (42.0-54.0); HEMOGLOBIN 11.9 g/dL (13.5-17.5); LYMPHOCYTES 22.3 % (15-50); MCH 32.5 pg (26.0-34.0); MCHC 34.2 g/dL (31.0-37.0); MCV 95.1 fL (80.0-100.0); MEAN PLATELET VOLUME 10.3 fL (7.4-10.4); NEUTROPHILS 60.4 % (40-80); PLATELET COUNT 168 10x3/uL (130-400); RBC 3.66 10x6/uL (4.20-6.10); RDW 16.4 % (11.5-14.5)
[2019-03-12] MEDS ORDERED: MIRALAX17 GM PO (11:17)
[2019-03-12] MEDS ORDERED: MUCINEX600 MG PO (11:18)
[2019-03-12] MEDS ORDERED: FLUTICASONE PRO16 GM NASAL (11:18)
[2019-03-12] MEDS ORDERED: ZITHROMAX500 MG PO (11:19)
--- NOTE | 2019-03-12 12:30 | MORECARE ---
CASE MANAGEMENT DISCHARGE SUMMARY PATIENT: TRUPTI CHRISTIANSON UNIT: [id number] ADM DATE: 03/05/19 AGE: 68 : 48 SEX: M ROOM/BED: D.2225 AUTHOR: ELAYNE MINA PHYSICIAN: REFERRING PHYSICIAN: BENJIE BUSTILLO MD DATE OF SERVICE: 03/12/19 Discharge Plan Patient Name: TRUPTI CHRISTIANSON Facility: [facility]:[place] : 1950 Planned Disposition: Home Hlth Svc w Plan Readm Anticipated Discharge Date: Discharge Date: Expected LOS: Initial Reviewer: [email or web address] Initial Review Date: 03/06/2019 Generated: 03/12/19 1:29 pm Comments DCP- Discharge Planning Updated by [email or web address]: Shavon Dillard on 03/12/19 11:[address] Received discharge orders. Patient is unsure if he wants inpatient rehab or SNF. I told him he had discharge orders and he needed to decide. He states to try inpatient rehab first so see if insurance will authorize him to go. I spoke with Adrianne Christianson in inpatient rehab and she will send for insurance auth. CM will continue to follow and assist with discharge planning/needs. DCP- Discharge Planning Updated by [id number]: Shavon Dillard on 03/11/19 8:[address] I spoke with the patient this morning again about discharge planning. He states that he would still like inpatient rehab at [facility], I informed him that he would need authorization from his insurance company and they may suggest skilled therapy. He signed a AMRIT form for [facility]. I spoke with Adrianne Christianson in inpatient rehab and she states they are continuing to follow him. CM will continue to follow and assist with discharge planning/needs. DCP- Discharge Planning Updated by [email or web address]: Shavon Dillard on 03/06/19 10:[address] Patient Name: TRUPTI CHRISTIANSON Admission Status: ER Accout number: [id number] Admission Date: 03-05-2019 : 1950 Admission Diagnosis: Attending: AZEEM BUSTILLO Current LOS: 1 Anticipated DC Date: Planned Disposition: Home Hlth Svc w Plan Readm Primary Insurance: [employer] CHOICE PPO MCR ADVANT Discharge Planning Comments: CM met with patient to complete initial dc planning assessment. CM educated patient on the CM role and verbal consent given by patient to complete assessment. Patient lives at home with his step daughter (Heather) and her . At discharge patient plans to return and feels this is a safe discharge. CM discussed availability of home health, rehab services, and medical equipment. Patient states he is current with [facility] for PT and nursing, they see him twice a week. States he would like to have OT resumed on discharge so that he could have help with his showers again. I called [facility] and spoke to Virgie and she states they can resume OT, PT and Nursing with an order on discharge. CM will continue to follow and will assist as needed with dc plans/needs. Double Cutter: Shavon Dillard DCPIA - Discharge Planning Initial Assessment Updated by [email or web address]: Shavon Dillard on 03/06/19 11:34 am * Is the patient Alert and Oriented? Yes * How many steps to enter\exit or inside your home? 2/0 * PCP Dr. Dc * Pharmacy [facility] * Preadmission Environment Home with Family * ADLs Partial Dependent * Partial ADLs (Assistance needed) Ambulation * Equipment Cane Elevated Toliet Seat Glucometer Other Shower Chair Tub Bench Walker * Other Equipment Rollator * List name and contact numbers for known caregivers / representatives who currently or will assist patient after discharge: Heather Gottlieb Walter Yunior DTR - [phone] * Verbal permission to speak to the caregivers and representatives has been obtained from the patient. Yes * Community resources currently utilized Home Health * Please name any agencies selected above. [facility] * Additional services required to return to the preadmission environment? No * Can the patient safely return to the preadmission environment? Yes * Has this patient been hospitalized within the prior 30 days at any hospital? No Coverage Notice Reviewer: [id number] Walter Dillard Notice Issued Date-Time: 03/06/2019 11:37 Notice Type: Patient Choice Letter Notice Delivered To: Patient Relationship to Patient: Self Welding Estimator Name: Delivery Method: HAND - Hand Delivered Destiny Days: Prior Verbal Notification: Recipient Understood Notice: Yes Recipient Signature: Yes Med Rec Note Co-signed by Attending: Coverage Notice Comment: AMRIT for [facility] Reviewer: [id number] Walter Dillard Notice Issued Date-Time: 03/11/2019 9:48 Notice Type: Patient Choice Letter Notice Delivered To: Patient Relationship to Patient: Self Welding Estimator Name: Delivery Method: HAND - Hand Delivered Destiny Days: Prior Verbal Notification: Recipient Understood Notice: Yes Recipient Signature: Yes Med Rec Note Co-signed by Attending: Coverage Notice Comment: AMRIT for Jessica Last DP export: 03/11/19 8:55 a Patient Name: TRUPTI CHRISTIANSON Page [id number] at 1230 All edits/amendments must be made on the electronic document DICTATION DATE: 03/12/19 1229 ELECTRONIC ASSEMBLER: BARRON 03/12/19 1229 RPT#: [id number] DC DATE: STATUS: ADM IN [facility] [address] [place] [address] END OF REPORT
[2019-03-12 12:49] VITALS: BP 107/55
--- NOTE | 2019-03-12 13:18 | NUR ---
NUTRITION F/U CHART REVIEWED, PT VISIT. TOLERATING DIABETIC DIET WITH GOOD INTAKE RECENT MEALS. WILL CONTINUE TO PROVIDE DIET, MONITOR INTAKE. RD FOLLOWING
[2019-03-12 14:25] LABS: CREATININE - URINE 58.1 mg/dL (30-125); PRO/CRE RATIO URINE 0.1 mg/g; PROTEIN - URINE 8.7 mg/dL (0.0-11.9)
[2019-03-12 15:05] LABS: APPEARANCE CLEAR (CLEAR); BILIRUBIN NEGATIVE (NEGATIVE); COLOR YELLOW (YELLOW); GLUCOSE NEGATIVE (NEGATIVE); KETONE NEGATIVE (NEGATIVE); NITRITE NEGATIVE (NEGATIVE); PROTEIN NEGATIVE (NEGATIVE); UROBILINOGEN NORMAL (NORMAL); WHITE CELLS - URINE 0-5 /hpf (0-5)
--- NOTE | 2019-03-12 16:22 | NUR ---
OT NOTE: ABLE TO TRANSFER IN AM FROM BED TO CHAIR WITH WALKER AND MIN ASSIST. TOLERATED SITTING UP IN CHAIR X AT LEAST 4 HOURS. IN AFTERNOON, PT REQUESTING TO GO TO BATHROOM. REQUIRED INCREASED ASSIST WITH SIT TO STAND FROM CHAIR DUE TO LOWER SURFACE. INCREASED DIFFICULTY ADVANCING FEET IN AFTERNOON, PT STATED THAT HE WAS FATIGUED. BACK TO BED WITH MIN ASSIST FOR LE MANAGEMENT. ABLE TO ROLL FROM SIDE TO SIDE WITH MIN ASSIST IN ORDER TO PLACE BED LEE. DAVINA ROSAS, OTR/L
--- NOTE | 2019-03-12 18:41 | NUR ---
PT RESTING IN BED, EYES OPEN EATING SUPPER. NO C/O PAIN. NO S/S OF ACUTE DISTRESS NOTED. PT DENIES ANYTHING FURTHER AT THIS TIME. CALL LIGHT IN REACH. WILL CONTINUE TO MONITOR.
--- NOTE | 2019-03-12 20:00 | NUR ---
ASSESSMENT PER FLOWSHEET. RESTING IN BED IV PATENT RT UPPER ARM OF NS AT 50CC'S/HR SITE CLEAR. TELM. SHOWS PACED AT 68. CABRERA TO BEDSIDE DRAINAGE WITH YELLOW URINE. RODDY BED ALARM MAT IN USE. SCD'S ON.
[2019-03-12 20:58] VITALS: BP 122/53
--- NOTE | 2019-03-12 21:30 | NUR ---
MEDS GIVEN PER DEC. ZIVU=105.REGULAR INSULIN 10 UNITS GIVEN SUBC PER S/S TO LEFT ARM.
--- NOTE | 2019-03-13 | NUR ---
EYES CLOSED RESPIRATIONS WITH EASE AND UNLABORED.
[2019-03-13 01:35] VITALS: BP 120/58
[2019-03-13 04:37] LABS: BASOPHILS 0.6 % (0-2); EOSINOPHILS 6.9 % (0-7); HEMATOCRIT 33.7 % (42.0-54.0); HEMOGLOBIN 11.1 g/dL (13.5-17.5); IMMATURE GRANULOCYTES 4.2 % (0-5); LYMPHOCYTES 24.1 % (15-50); MCH 31.2 pg (26.0-34.0); MCHC 32.9 g/dL (31.0-37.0); MCV 94.7 fL (80.0-100.0); MEAN PLATELET VOLUME 10.2 fL (7.4-10.4); MONOCYTES 14.2 % (2-11); PLATELET COUNT 177 10x3/uL (130-400); RBC 3.56 10x6/uL (4.20-6.10); RDW 16.2 % (11.5-14.5); WBC 11.9 10x3/uL (4.8-10.8)
[2019-03-13 04:48] LABS: ANION GAP 13.9 mmol/L (8-16); CALCIUM 9.3 mg/dL (8.5-10.1); CARBON DIOXIDE 22.4 mmol/L (21.0-32.0); CREATININE - SERUM 1.7 mg/dL (0.6-1.3); POTASSIUM - SERUM 4.3 mmol/L (3.5-5.1)
[2019-03-13 05:25] VITALS: BP 136/54
--- NOTE | 2019-03-13 07:16 | NUR ---
PT IS RESTING IN BED WITH EYES OPEN. RESPIRATIONS ARE EVEN AND UNLABORED. PT DENIES PRESENCE OF PAIN/N/V/DYSPNEA AT THIS TIME. PT WITH CABRERA CATHETER DRAINING WITHOUT DIFFICULTY. YELLOW URINE NOTED TO CABRERA COLLECTION BAG. OTILIA CARE COMPLETED. DISCOLORATION NOTED TO BILATERAL LOWER EXTREMITIES WITH DRYNESS/SCALY SKIN. PT DENIES PRESENCE OF NUMBNESS/TINGLING. PEDAL PULSES PALPABLE. CAP REFILL <3 SECONDS. PT DENIES FURTHER NEEDS. BED IS IN THE LOWEST POSITION. CALL LIGHT AND BEDSIDE TABLES ARE WITHIN REACH. SIDE RAILS X 2. WILL CONT TO MONITOR.
[2019-03-13 09:00] VITALS: BP 108/62
--- NOTE | 2019-03-13 11:22 | MORECARE ---
CASE MANAGEMENT DISCHARGE SUMMARY PATIENT: TRUPTI CHRISTIANSON UNIT: [id number] ADM DATE: 03/05/19 AGE: 68 : 48 SEX: M ROOM/BED: D.2225 AUTHOR: ELAYNE MINA PHYSICIAN: REFERRING PHYSICIAN: BENJIE BUSTILLO MD DATE OF SERVICE: 03/13/19 Discharge Plan Patient Name: TRUPTI CHRISTIANSON Facility: [facility]:[place] : 1950 Planned Disposition: Home Hlth Svc w Plan Readm Anticipated Discharge Date: Discharge Date: Expected LOS: Initial Reviewer: [email or web address] Initial Review Date: 03/06/2019 Generated: 03/13/19 12:21 pm Comments DCP- Discharge Planning Updated by [email or web address]: Shavon Dillard on 03/12/19 11:[address] Received discharge orders. Patient is unsure if he wants inpatient rehab or SNF. I told him he had discharge orders and he needed to decide. He states to try inpatient rehab first so see if insurance will authorize him to go. I spoke with Adrianne Christianson in inpatient rehab and she will send for insurance auth. CM will continue to follow and assist with discharge planning/needs. DCP- Discharge Planning Updated by [id number]: Shavon Dillard on 03/11/19 8:[address] I spoke with the patient this morning again about discharge planning. He states that he would still like inpatient rehab at [facility], I informed him that he would need authorization from his insurance company and they may suggest skilled therapy. He signed a AMRIT form for [facility]. I spoke with Adrianne Christianson in inpatient rehab and she states they are continuing to follow him. CM will continue to follow and assist with discharge planning/needs. DCP- Discharge Planning Updated by [email or web address]: Shavon Dillard on 03/06/19 10:[address] Patient Name: TRUPTI CHRISTIANSON Admission Status: ER Accout number: [id number] Admission Date: 03-05-2019 : 1950 Admission Diagnosis: Attending: AZEEM BUSTILLO Current LOS: 1 Anticipated DC Date: Planned Disposition: Home Hlth Svc w Plan Readm Primary Insurance: [employer] CHOICE PPO MCR ADVANT Discharge Planning Comments: CM met with patient to complete initial dc planning assessment. CM educated patient on the CM role and verbal consent given by patient to complete assessment. Patient lives at home with his step daughter (Heather) and her . At discharge patient plans to return and feels this is a safe discharge. CM discussed availability of home health, rehab services, and medical equipment. Patient states he is current with [facility] for PT and nursing, they see him twice a week. States he would like to have OT resumed on discharge so that he could have help with his showers again. I called [facility] and spoke to Virgie and she states they can resume OT, PT and Nursing with an order on discharge. CM will continue to follow and will assist as needed with dc plans/needs. Flow Nurse: hSavon Dillard DCPIA - Discharge Planning Initial Assessment Updated by [email or web address]: Shavon Dillard on 03/06/19 11:34 am * Is the patient Alert and Oriented? Yes * How many steps to enter\exit or inside your home? 2/0 * PCP Dr. Dc * Pharmacy [facility] * Preadmission Environment Home with Family * ADLs Partial Dependent * Partial ADLs (Assistance needed) Ambulation * Equipment Cane Elevated Toliet Seat Glucometer Other Shower Chair Tub Bench Walker * Other Equipment Rollator * List name and contact numbers for known caregivers / representatives who currently or will assist patient after discharge: Heather Gottlieb Walter Yunior DTR - [phone] * Verbal permission to speak to the caregivers and representatives has been obtained from the patient. Yes * Community resources currently utilized Home Health * Please name any agencies selected above. [facility] * Additional services required to return to the preadmission environment? No * Can the patient safely return to the preadmission environment? Yes * Has this patient been hospitalized within the prior 30 days at any hospital? No External Providers External Provider: [facility] Next Contact Date: Service Request Date: Service Type: Resolution: Reviewer: Comments: Coverage Notice Reviewer: [id number] Walter Dillard Notice Issued Date-Time: 03/06/2019 11:37 Notice Type: Patient Choice Letter Notice Delivered To: Patient Relationship to Patient: Self Keg Header Name: Delivery Method: HAND - Hand Delivered Destiny Days: Prior Verbal Notification: Recipient Understood Notice: Yes Recipient Signature: Yes Med Rec Note Co-signed by Attending: Coverage Notice Comment: AMRIT for [facility] Reviewer: [id number] Walter Dillard Notice Issued Date-Time: 03/11/2019 9:48 Notice Type: Patient Choice Letter Notice Delivered To: Patient Relationship to Patient: Self Keg Header Name: Delivery Method: HAND - Hand Delivered Destiny Days: Prior Verbal Notification: Recipient Understood Notice: Yes Recipient Signature: Yes Med Rec Note Co-signed by Attending: Coverage Notice Comment: AMRIT for Jessica Last DP export: 03/12/19 11:29 a Patient Name: TRUPTI CHRISTIANSON Page [phone] at 1122 All edits/amendments must be made on the electronic document DICTATION DATE: 03/13/191120 FIELD SERVICER: BARRON 03/13/191120 RPT#: [id number] DC DATE: STATUS: ADM IN [facility] [address] [place] [address] END OF REPORT
--- NOTE | 2019-03-13 11:38 | MORECARE ---
CASE MANAGEMENT DISCHARGE SUMMARY PATIENT: TRUPTI CHRISTIANSON UNIT: [id number] ADM DATE: 03/05/19 AGE: 68 : 48 SEX: M ROOM/BED: D.2225 AUTHOR: ELAYNE MINA PHYSICIAN: REFERRING PHYSICIAN: BENJIE BUSTILLO MD DATE OF SERVICE: 03/13/19 Discharge Plan Patient Name: TRUPTI CHRISTIANSON Facility: [facility]:[place] : 1950 Planned Disposition: Home Hlth Svc w Plan Readm Anticipated Discharge Date: Discharge Date: Expected LOS: Initial Reviewer: [id number] Initial Review Date: 03/06/2019 Generated: 03/13/19 12:38 pm Comments DCP- Discharge Planning Updated by [email or web address]: Shavon Dillard on 03/13/19 10:[address] [facility] has denied inpatient rehab admission. I sent referral to Kaylah at [facility] and clinical faxed, Kaylah states she will call back if they are able to admit. Patient in agreement to [facility]. CM will continue to follow and assist with discharge planning/needs. DCP- Discharge Planning Updated by [email or web address]: Shavon Dillard on 03/12/19 11:[address] Received discharge orders. Patient is unsure if he wants inpatient rehab or SNF. I told him he had discharge orders and he needed to decide. He states to try inpatient rehab first so see if insurance will authorize him to go. I spoke with Adrianne Christianson in inpatient rehab and she will send for insurance auth. CM will continue to follow and assist with discharge planning/needs. DCP- Discharge Planning Updated by [email or web address]: Shavon Dillard on 03/11/19 8:[address] I spoke with the patient this morning again about discharge planning. He states that he would still like inpatient rehab at [facility], I informed him that he would need authorization from his insurance company and they may suggest skilled therapy. He signed a AMRIT form for [facility]. I spoke with Adrianne Christianson in inpatient rehab and she states they are continuing to follow him. CM will continue to follow and assist with discharge planning/needs. DCP- Discharge Planning Updated by [email or web address]: Shavon Dillard on 03/06/19 10:[address] Patient Name: TRUPTI CHRISTIANSON Admission Status: ER Accout number: [id number] Admission Date: 03-05-2019 : 1950 Admission Diagnosis: Attending: AZEEM BUSTILLO Current LOS: 1 Anticipated DC Date: Planned Disposition: Home Hlth Svc w Plan Readm Primary Insurance: [employer] CHOICE PPO MCR ADVANT Discharge Planning Comments: CM met with patient to complete initial dc planning assessment. CM educated patient on the CM role and verbal consent given by patient to complete assessment. Patient lives at home with his step daughter (Heather) and her . At discharge patient plans to return and feels this is a safe discharge. CM discussed availability of home health, rehab services, and medical equipment. Patient states he is current with [facility] for PT and nursing, they see him twice a week. States he would like to have OT resumed on discharge so that he could have help with his showers again. I called [facility] and spoke to Virgie and she states they can resume OT, PT and Nursing with an order on discharge. CM will continue to follow and will assist as needed with dc plans/needs. Pin Sorter And Bagger: Shavon Dillard DCPIA - Discharge Planning Initial Assessment Updated by [email or web address]: Shavon Dillard on 03/06/19 11:34 am * Is the patient Alert and Oriented? Yes * How many steps to enter\exit or inside your home? 2/0 * PCP Dr. Dc * Pharmacy [facility] * Preadmission Environment Home with Family * ADLs Partial Dependent * Partial ADLs (Assistance needed) Ambulation * Equipment Cane Elevated Toliet Seat Glucometer Other Shower Chair Tub Bench Walker * Other Equipment Rollator * List name and contact numbers for known caregivers / representatives who currently or will assist patient after discharge: Heather Velasquezyaron Mojica DTR - [phone] * Verbal permission to speak to the caregivers and representatives has been obtained from the patient. Yes * Community resources currently utilized Home Health * Please name any agencies selected above. [facility] * Additional services required to return to the preadmission environment? No * Can the patient safely return to the preadmission environment? Yes * Has this patient been hospitalized within the prior 30 days at any hospital? No Coverage Notice Reviewer: [id number] - Shavon Dillard Notice Issued Date-Time: 03/06/2019 11:37 Notice Type: Patient Choice Letter Notice Delivered To: Patient Relationship to Patient: Self Superintendent Electric Power Name: Delivery Method: HAND - Hand Delivered Destiny Days: Prior Verbal Notification: Recipient Understood Notice: Yes Recipient Signature: Yes Med Rec Note Co-signed by Attending: Coverage Notice Comment: AMRIT [facility] Reviewer: [email or web address] Walter Dillard Notice Issued Date-Time: 03/11/2019 9:48 Notice Type: Patient Choice Letter Notice Delivered To: Patient Relationship to Patient: Self Superintendent Electric Power Name: Delivery Method: HAND - Hand Delivered Destiny Days: Prior Verbal Notification: Recipient Understood Notice: Yes Recipient Signature: Yes Med Rec Note Co-signed by Attending: Coverage Notice Comment: AMRIT for Jessica CARDONA export: 03/13/19 10:21 a Patient Name: TRUPTI CHRISTIANSON Page [phone] at 1138 All edits/amendments must be made on the electronic document DICTATION DATE: 03/13/191137 FUSION OPERATOR: BARRON 03/13/19 1138 RPT#: [id number] DC DATE: STATUS: ADM IN [facility] [address] [place] [address] END OF REPORT
[2019-03-13 12:36] VITALS: BP 118/52
--- NOTE | 2019-03-13 14:48 | MORECARE ---
CASE MANAGEMENT DISCHARGE SUMMARY PATIENT: TRUPTI CHRISTIANSON UNIT: [id number] ADM DATE: 03/05/19 AGE: 68 : 48 SEX: M ROOM/BED: D.2225 AUTHOR: KEELEY,DOC PHYSICIAN: REFERRING PHYSICIAN: BENJIE BUSTILLO MD DATE OF SERVICE: 03/13/19 Discharge Plan Patient Name: TRUPTI CHRISTIANSON Facility: [facility]:[place] : 1950 Planned Disposition: Home Hlth Svc w Plan Readm Anticipated Discharge Date: Discharge Date: Expected LOS: Initial Reviewer: [email or web address] Initial Review Date: 03/06/2019 Generated: 03/13/19 3:47 pm Comments DCP- Discharge Planning Updated by [id number]: Shavon Dillard on 03/13/19 1:[address] Kaylah from [facility] called and states the patient is clinically accepted but awaiting insurance authorization. Patient informed. CM will continue to follow and assist with discharge planning/needs. DCP- Discharge Planning Updated by [email or web address]: Shavon Dillard on 03/13/19 10:[address] [facility] has denied inpatient rehab admission. I sent referral to Kaylah at [facility] and clinical faxed, Kaylah states she will call back if they are able to admit. Patient in agreement to [facility]. CM will continue to follow and assist with discharge planning/needs. DCP- Discharge Planning Updated by [id number]: Shavon Dillard on 03/12/19 11:[address] Received discharge orders. Patient is unsure if he wants inpatient rehab or SNF. I told him he had discharge orders and he needed to decide. He states to try inpatient rehab first so see if insurance will authorize him to go. I spoke with Adrianne Christianson in inpatient rehab and she will send for insurance auth. CM will continue to follow and assist with discharge planning/needs. DCP- Discharge Planning Updated by [email or web address]: Shavon Dillard on 03/11/19 8:[address] I spoke with the patient this morning again about discharge planning. He states that he would still like inpatient rehab at [facility], I informed him that he would need authorization from his insurance company and they may suggest skilled therapy. He signed a AMRIT form for [facility]. I spoke with Adrianne Sammy in inpatient rehab and she states they are continuing to follow him. CM will continue to follow and assist with discharge planning/needs. DCP- Discharge Planning Updated by [id number]: Shavon Barrgary on 03/06/19 10:[address] Patient Name: TRUPTI CHRISTIANSON Admission Status: ER Accout number: [id number] Admission Date: 03-05-2019 : 1950 Admission Diagnosis: Attending: AZEEM BUSTILLO Current LOS: 1 Anticipated DC Date: Planned Disposition: Home Hlth Svc w Plan Readm Primary Insurance: [employer] CHOICE PPO MCR ADVANT Discharge Planning Comments: CM met with patient to complete initial dc planning assessment. CM educated patient on the CM role and verbal consent given by patient to complete assessment. Patient lives at home with his step daughter (Heather) and her . At discharge patient plans to return and feels this is a safe discharge. CM discussed availability of home health, rehab services, and medical equipment. Patient states he is current with [facility] for PT and nursing, they see him twice a week. States he would like to have OT resumed on discharge so that he could have help with his showers again. I called [facility] and spoke to Virgie and she states they can resume OT, PT and Nursing with an order on discharge. CM will continue to follow and will assist as needed with dc plans/needs. Java Scala Developer: Shavon Dillard DCPIA - Discharge Planning Initial Assessment Updated by [id number]: Shavon Gilma on 03/06/19 11:34 am * Is the patient Alert and Oriented? Yes * How many steps to enter\exit or inside your home? 2/0 * PCP Dr. Dc * Pharmacy [facility] on [address] * Preadmission Environment Home with Family * ADLs Partial Dependent * Partial ADLs (Assistance needed) Ambulation * Equipment Cane Elevated Toliet Seat Glucometer Other Shower Chair Tub Bench Walker * Other Equipment Rollator * List name and contact numbers for known caregivers / representatives who currently or will assist patient after discharge: Heather Velasquezyaron Mojica DTR - [phone] * Verbal permission to speak to the caregivers and representatives has been obtained from the patient. Yes * Community resources currently utilized Home Health * Please name any agencies selected above. [facility] * Additional services required to return to the preadmission environment? No * Can the patient safely return to the preadmission environment? Yes * Has this patient been hospitalized within the prior 30 days at any hospital? No Coverage Notice Reviewer: [id number] Dillard Notice Issued Date-Time: 03/06/2019 11:37 Notice Type: Patient Choice Letter Notice Delivered To: Patient Relationship to Patient: Self Tailor Fitter Name: Delivery Method: HAND - Hand Delivered Destiny Days: Prior Verbal Notification: Recipient Understood Notice: Yes Recipient Signature: Yes Med Rec Note Co-signed by Attending: Coverage Notice Comment: AMRIT for [facility] Reviewer: [id number] Walter Dillard Notice Issued Date-Time: 03/11/2019 9:48 Notice Type: Patient Choice Letter Notice Delivered To: Patient Relationship to Patient: Self Tailor Fitter Name: Delivery Method: HAND - Hand Delivered Destiny Days: Prior Verbal Notification: Recipient Understood Notice: Yes Recipient Signature: Yes Med Rec Note Co-signed by Attending: Coverage Notice Comment: AMRIT for Jessica Lofton DP export: 03/13/19 10:38 a Patient Name: TRUPTI CHRISTIANSON Page [phone] at 1448 All edits/amendments must be made on the electronic document DICTATION DATE: 03/13/191446 MEASUREMENT ADVISOR: BARRON 03/13/191446 RPT#: [id number] DC DATE: STATUS: ADM IN [facility] [address] [place] [address] END OF REPORT
--- NOTE | 2019-03-13 16:17 | NUR ---
OT NOTE: PT COMPLETED TOILETING TASKS WITH MAX A. PT COMPLETED GROOMING TASKS WITH MIN A. PT COMPLETED SIT TO STAND WITH MIN/MOD A. PT COMPLETED ADL MOB WITH CGA/MIN A. THANK YOU, HANK WARE
--- NOTE | 2019-03-13 16:21 | NUR ---
OT NOTE: PT SEEN EARLY IN AM. STATED THAT HE MAY NEED TO USE THE BED LEE. LOCATED BS COMMODE VS BEDPAN. BED MOB WITH MIN/MOD ASSIST. SITTING ON EOB WITH GOOD BALANCE. SIT TO STAND WITH MIN ASSIST WITH BED ELEVATED. TRANSFER TO BS COMMODE WITH MIN ASSIST AND USE OF WALKER. PT HAD LARGE SEMI FORMED BM. MAX ASSIST TO CLEAN PERINEAL AREA. PROVIDED PT WITH BASIC OF WATER AND HE WAS ABLE TO BATHE UPPER BODY AND UPPER LEGS WITH SET UP. WASHED PTS HAIR WITH SHAMPOO CAP. PT ABLE TO COMB HAIR WITH EXT TIME REQUIRED. MAX ASSIST TO BATHE LES AND BERTRAND SOCKS. TRANSFER FROM BS COMMODE TO CHAIR WITH MIN ASSIST AND USE OF WALKER. EDUCATION FOR REACHING BACK FOR CHAIR UPON DECENT AND REQUIRED ONLY MIN ASSIST THIS TIME. DAVINA ROSAS, OTR/L
[2019-03-13 16:43] VITALS: BP 141/67
[2019-03-14 00:07] VITALS: BP 127/57
[2019-03-14 05:07] VITALS: BP 125/90
--- NOTE | 2019-03-14 06:26 | NUR ---
PT RESTING IN HIGH GONCALVES'S POSITION WATCHING TV. PT WAS ASSISTED UP TO BSC THIS MORNING AND HAD LARGE BM. FSBS 112 AM CHECK REQUIRING NO COVERAGE PER SLIDING [employer]ALE.
[2019-03-14 07:16] LABS: BASOPHILS 0.7 % (0-2); EOSINOPHILS 7.4 % (0-7); HEMATOCRIT 35.3 % (42.0-54.0); HEMOGLOBIN 11.8 g/dL (13.5-17.5); IMMATURE GRANULOCYTES 3.8 % (0-5); LYMPHOCYTES 23.8 % (15-50); MCH 31.8 pg (26.0-34.0); MCHC 33.4 g/dL (31.0-37.0); MCV 95.1 fL (80.0-100.0); MEAN PLATELET VOLUME 10.5 fL (7.4-10.4); MONOCYTES 13.1 % (2-11); NEUTROPHILS 51.2 % (40-80); PLATELET COUNT 201 10x3/uL (130-400); RBC 3.71 10x6/uL (4.20-6.10); RDW 16.1 % (11.5-14.5)
--- NOTE | 2019-03-14 07:16 | NUR ---
PATIENT A&O. LYING COMFORTABLY; CONVERSANT. ALL NEEDS MET AT THIS TIME.
[2019-03-14 07:29] LABS: ANION GAP 13.6 mmol/L (8-16); CARBON DIOXIDE 22.5 mmol/L (21.0-32.0); CREATININE - SERUM 1.4 mg/dL (0.6-1.3); POTASSIUM - SERUM 4.1 mmol/L (3.5-5.1)
[2019-03-14 09:05] VITALS: BP 137/69
--- NOTE | 2019-03-14 11:26 | MORECARE ---
CASE MANAGEMENT DISCHARGE SUMMARY PATIENT: TRUPTI CHRISTIANSON UNIT: [id number] ADM DATE: 03/05/19 AGE: 68 : 48 SEX: M ROOM/BED: D.2225 AUTHOR: KEELEY,DOC PHYSICIAN: REFERRING PHYSICIAN: BENJIE BUSTILLO MD DATE OF SERVICE: 03/14/19 Discharge Plan Patient Name: TRUPTI CHRISTIANSON Facility: [facility]:[place] : 1950 Planned Disposition: Home Hlth Svc w Plan Readm Anticipated Discharge Date: Discharge Date: Expected LOS: Initial Reviewer: [email or web address] Initial Review Date: 03/06/2019 Generated: 03/14/19 12:25 pm Comments DCP- Discharge Planning Updated by [id number]: Shavon Dillard on 03/14/19 10:[address] Kaylah from [facility] called and states they have insurance authorization. I called [facility] for DC orders. MAR/DC summary and DC meds faxed to [facility]. IMM explained, signed, given, copy placed in MR. Lopez with call with picket labor union time. CM will continue to follow and assist with discharge planning/needs. DCP- Discharge Planning Updated by [email or web address]: Shavon Dillard on 03/13/19 1:[address] Kaylah from [facility] called and states the patient is clinically accepted but awaiting insurance authorization. Patient informed. CM will continue to follow and assist with discharge planning/needs. DCP- Discharge Planning Updated by [id number]: Shavon Dillard on 03/13/19 10:[address] [facility] has denied inpatient rehab admission. I sent referral to Kaylah at [facility] and clinical faxed, Kaylah states she will call back if they are able to admit. Patient in agreement to [facility]. CM will continue to follow and assist with discharge planning/needs. DCP- Discharge Planning Updated by [email or web address]: Shavon Dillard on 03/12/19 11:[address] Received discharge orders. Patient is unsure if he wants inpatient rehab or SNF. I told him he had discharge orders and he needed to decide. He states to try inpatient rehab first so see if insurance will authorize him to go. I spoke with Adrianne Christianson in inpatient rehab and she will send for insurance auth. CM will continue to follow and assist with discharge planning/needs. DCP- Discharge Planning Updated by [email or web address]: Shavon Dillard on 03/11/19 8:[address] I spoke with the patient this morning again about discharge planning. He states that he would still like inpatient rehab at [facility], I informed him that he would need authorization from his insurance company and they may suggest skilled therapy. He signed a AMRIT form for [facility]. I spoke with Adrianne Christianson in inpatient rehab and she states they are continuing to follow him. CM will continue to follow and assist with discharge planning/needs. DCP- Discharge Planning Updated by [email or web address]: Shavon Dillard on 03/06/19 10:[address] Patient Name: TRUPTI CHRISTIANSON Admission Status: ER Accout number: [id number] Admission Date: 03-05-2019 : 1950 Admission Diagnosis: Attending: AZEEM BUSTILLO Current LOS: 1 Anticipated DC Date: Planned Disposition: Home Hlth Svc w Plan Readm Primary Insurance: [employer] CHOICE PPO MCR ADVANT Discharge Planning Comments: CM met with patient to complete initial dc planning assessment. CM educated patient on the CM role and verbal consent given by patient to complete assessment. Patient lives at home with his step daughter (Heather) and her . At discharge patient plans to return and feels this is a safe discharge. CM discussed availability of home health, rehab services, and medical equipment. Patient states he is current with [facility] for PT and nursing, they see him twice a week. States he would like to have OT resumed on discharge so that he could have help with his showers again. I called [facility] and spoke to Virgie and she states they can resume OT, PT and Nursing with an order on discharge. CM will continue to follow and will assist as needed with dc plans/needs. Papier Mache Molder: Shavon Dillard DCPIA - Discharge Planning Initial Assessment Updated by [email or web address]: Shavon Dillard on 03/06/19 11:34 am * Is the patient Alert and Oriented? Yes * How many steps to enter\exit or inside your home? 2/0 * PCP Dr. Dc * Pharmacy [facility] * Preadmission Environment Home with Family * ADLs Partial Dependent * Partial ADLs (Assistance needed) Ambulation * Equipment Cane Elevated Toliet Seat Glucometer Other Shower Chair Tub Bench Walker * Other Equipment Rollator * List name and contact numbers for known caregivers / representatives who currently or will assist patient after discharge: Heather Mojica DTR - [phone] * Verbal permission to speak to the caregivers and representatives has been obtained from the patient. Yes * Community resources currently utilized Home Health * Please name any agencies selected above. [facility] * Additional services required to return to the preadmission environment? No * Can the patient safely return to the preadmission environment? Yes * Has this patient been hospitalized within the prior 30 days at any hospital? No Coverage Notice Reviewer: [id number] Dillard Notice Issued Date-Time: 03/06/2019 11:37 Notice Type: Patient Choice Letter Notice Delivered To: Patient Relationship to Patient: Self Administrative Tech Name: Delivery Method: HAND - Hand Delivered Destiny Days: Prior Verbal Notification: Recipient Understood Notice: Yes Recipient Signature: Yes Med Rec Note Co-signed by Attending: Coverage Notice Comment: AMRIT for [facility] Reviewer: [id number] Dillard Notice Issued Date-Time: 03/11/2019 9:48 Notice Type: Patient Choice Letter Notice Delivered To: Patient Relationship to Patient: Self Administrative Tech Name: Delivery Method: HAND - Hand Delivered Destiny Days: Prior Verbal Notification: Recipient Understood Notice: Yes Recipient Signature: Yes Med Rec Note Co-signed by Attending: Coverage Notice Comment: AMRIT crystal Lopez Reviewer: [id number] Dillard Notice Issued Date-Time: 03/14/2019 11:25 Notice Type: IM Discharge Notice Notice Delivered To: Patient Relationship to Patient: Self Administrative Tech Name: Delivery Method: - Destiny Days: Prior Verbal Notification: Recipient Understood Notice: Recipient Signature: Med Rec Note Co-signed by Attending: Coverage Notice Comment: Last DP export: 03/13/19 1:47 p Patient Name: TRUPTI CHRISTIANSON Page [phone] at 1126 All edits/amendments must be made on the electronic document DICTATION DATE: 03/14/19 1125 BRICK TESTER: BARRON 03/14/19 1125 RPT#: [id number] DC DATE: STATUS: ADM IN [facility] [address] [place] [address] END OF REPORT
--- NOTE | 2019-03-14 11:33 | MORECARE ---
CASE MANAGEMENT DISCHARGE SUMMARY PATIENT: TRUPTI CHRISTIANSON UNIT: [id number] ADM DATE: 03/05/19 AGE: 68 : 48 SEX: M ROOM/BED: D.2225 AUTHOR: ELAYNE MINA PHYSICIAN: REFERRING PHYSICIAN: BENJIE BUSTILLO MD DATE OF SERVICE: 03/14/19 Discharge Plan Patient Name: TRUPTI CHRISTIANSON Facility: [facility]:[place] : 1950 Planned Disposition: Home Hlth Svc w Plan Readm Anticipated Discharge Date: Discharge Date: Expected LOS: Initial Reviewer: [email or web address] Initial Review Date: 03/06/2019 Generated: 03/14/19 12:33 pm Comments DCP- Discharge Planning Updated by [id number]: Shavon Dillard on 03/14/19 10:[address] Discharging to a skilled bed today at [facility]. DCP- Discharge Planning Updated by [id number]: Shavon Dillard on 03/14/19 10:[address] Kaylah from [facility] called and states they have insurance authorization. I called [facility] for DC orders. MAR/DC summary and DC meds faxed to [facility]. IMM explained, signed, given, copy placed in MR. Lopez with call with knot picker cloth time. CM will continue to follow and assist with discharge planning/needs. DCP- Discharge Planning Updated by [email or web address]: Shavon Dillard on 03/13/19 1:[address] Kaylah from [facility] called and states the patient is clinically accepted but awaiting insurance authorization. Patient informed. CM will continue to follow and assist with discharge planning/needs. DCP- Discharge Planning Updated by [id number]: Shavon Dillard on 03/13/19 10:[address] [facility] has denied inpatient rehab admission. I sent referral to Kaylah at [facility] and clinical faxed, Kaylah states she will call back if they are able to admit. Patient in agreement to [facility]. CM will continue to follow and assist with discharge planning/needs. DCP- Discharge Planning Updated by [id number]: Shavon Dillard on 03/12/19 11:[address] Received discharge orders. Patient is unsure if he wants inpatient rehab or SNF. I told him he had discharge orders and he needed to decide. He states to try inpatient rehab first so see if insurance will authorize him to go. I spoke with Adrianne Christianson in inpatient rehab and she will send for insurance auth. CM will continue to follow and assist with discharge planning/needs. DCP- Discharge Planning Updated by [email or web address]: Shavon Dillard on 03/11/19 8:[address] I spoke with the patient this morning again about discharge planning. He states that he would still like inpatient rehab at [facility], I informed him that he would need authorization from his insurance company and they may suggest skilled therapy. He signed a AMRIT form for [facility]. I spoke with Adrianne Christianson in inpatient rehab and she states they are continuing to follow him. CM will continue to follow and assist with discharge planning/needs. DCP- Discharge Planning Updated by [id number]: Shavon Dillard on 03/06/19 10:[address] Patient Name: TRUPTI CHRISTIANSON Admission Status: ER Accout number: [id number] Admission Date: 03-05-2019 : 1950 Admission Diagnosis: Attending: AZEEM BUSTILLO Current LOS: 1 Anticipated DC Date: Planned Disposition: Home Hlth Svc w Plan Readm Primary Insurance: [employer] CHOICE PPO MCR ADVANT Discharge Planning Comments: CM met with patient to complete initial dc planning assessment. CM educated patient on the CM role and verbal consent given by patient to complete assessment. Patient lives at home with his step daughter (Heather) and her . At discharge patient plans to return and feels this is a safe discharge. CM discussed availability of home health, rehab services, and medical equipment. Patient states he is current with [facility] for PT and nursing, they see him twice a week. States he would like to have OT resumed on discharge so that he could have help with his showers again. I called [facility] and spoke to Virgie and she states they can resume OT, PT and Nursing with an order on discharge. CM will continue to follow and will assist as needed with dc plans/needs. Senior Materials Planner: Shavon Dillard DCPIA - Discharge Planning Initial Assessment Updated by [email or web address]: Shavon Dillard on 03/06/19 11:34 am * Is the patient Alert and Oriented? Yes * How many steps to enter\exit or inside your home? 2/0 * PCP Dr. Dc * Pharmacy [facility] * Preadmission Environment Home with Family * ADLs Partial Dependent * Partial ADLs (Assistance needed) Ambulation * Equipment Cane Elevated Toliet Seat Glucometer Other Shower Chair Tub Bench Walker * Other Equipment Rollator * List name and contact numbers for known caregivers / representatives who currently or will assist patient after discharge: Heather Mojica DTR - [phone] * Verbal permission to speak to the caregivers and representatives has been obtained from the patient. Yes * Community resources currently utilized Home Health * Please name any agencies selected above. [facility] * Additional services required to return to the preadmission environment? No * Can the patient safely return to the preadmission environment? Yes * Has this patient been hospitalized within the prior 30 days at any hospital? No Coverage Notice Reviewer: [id number] Dillard Notice Issued Date-Time: 03/14/2019 11:25 Notice Type: IM Discharge Notice Notice Delivered To: Patient Relationship to Patient: Self Ui Ux Engineer Name: Delivery Method: HAND - Hand Delivered Destiny Days: Prior Verbal Notification: Recipient Understood Notice: Yes Recipient Signature: Yes Med Rec Note Co-signed by Attending: Coverage Notice Comment: IMM explained, signed, given, copy placed in MR Reviewer: [id number] Dillard Notice Issued Date-Time: 03/11/2019 9:48 Notice Type: Patient Choice Letter Notice Delivered To: Patient Relationship to Patient: Self Ui Ux Engineer Name: Delivery Method: HAND - Hand Delivered Destiny Days: Prior Verbal Notification: Recipient Understood Notice: Yes Recipient Signature: Yes Med Rec Note Co-signed by Attending: Coverage Notice Comment: AMRIT crystal Lopez Reviewer: [id number] Dillard Notice Issued Date-Time: 03/06/2019 11:37 Notice Type: Patient Choice Letter Notice Delivered To: Patient Relationship to Patient: Self Ui Ux Engineer Name: Delivery Method: HAND - Hand Delivered Destiny Days: Prior Verbal Notification: Recipient Understood Notice: Yes Recipient Signature: Yes Med Rec Note Co-signed by Attending: Coverage Notice Comment: AMRIT for [facility] Loft[facility] DP export: 03/14/19 10:25 a Patient Name: TRUPTI CHRISTIANSON Page [phone] at 1133 All edits/amendments must be made on the electronic document DICTATION DATE: 03/14/191131 HEAD COUNSELOR: BARRON 03/14/19 113 RPT#: [id number] DC DATE: STATUS: ADM IN [facility] [address] [place] [address] END OF REPORT
--- NOTE | 2019-03-14 12:15 | NUR ---
CABRERA CATHETER REMOVED; 10CC WATER REMOVED FROM BULB BEFORE REMOVING. PIV REMOVED FROM RIGHT UPPER ARM, TIP INTACT. ASSISTED PATIENT TO DRESS. DISCUSSED DISCHARGE INSTRUCTIONS, MEDICATION AND FOLLOW-UP. ALL BELONGINGS SENT WITH PATIENT. DISCHARGED TO [facility] VIA WHEELCHAIR BY TRANSPORT. REPORT CALLED TO FAM BACON AT [facility].
[2019-03-14 12:57] VITALS: BP 123/75
== END 2019-03-14 12:30 | disposition home health service (06) | DRG 193 ==
LOC: D.ER 02:50 → D.MS 05:31
PROVIDERS: Family Medicine; Internal Medicine Nephrology; ADMIT Emergency Medicine; ATTEND Emergency Medicine
DX: J18.9 Pneumonia, unspecified organism (principal); N17.0 Acute kidney failure with tubular necrosis; G72.81 Critical illness myopathy; E87.0 Hyperosmolality and hypernatremia; E87.1 Hypo-osmolality and hyponatremia; Z68.41 Body mass index [BMI] 40.0-44.9, adult; I42.9 Cardiomyopathy, unspecified; R11.2 Nausea with vomiting, unspecified; E86.0 Dehydration; N28.9 Disorder of kidney and ureter, unspecified; E11.65 Type 2 diabetes mellitus with hyperglycemia; D64.9 Anemia, unspecified; E66.01 Morbid (severe) obesity due to excess calories; I10 Essential (primary) hypertension; I48.0 Paroxysmal atrial fibrillation; R55 Syncope and collapse

== ENCOUNTER 2019-03-31 03:35 | Inpatient (IN) | payer MEDICARE ==
[~2019-03-31] VITALS: Ht 180.3 cm; Wt 136.4 kg
[~2019-03-31 03:35] MED LIST changes: +FLUTICASONE PRO16 GM NASAL; +MIRALAX17 GM PO; +MUCINEX600 MG PO; +ZITHROMAX500 MG PO
[2019-03-31 04:15] LABS: BASOPHILS 0.6 % (0-2); EOSINOPHILS 6.5 % (0-7); HEMATOCRIT 35.4 % (42.0-54.0); HEMOGLOBIN 11.4 g/dL (13.5-17.5); IMMATURE GRANULOCYTES 3.1 % (0-5); LYMPHOCYTES 18.7 % (15-50); MCH 31.1 pg (26.0-34.0); MCHC 32.2 g/dL (31.0-37.0); MCV 96.5 fL (80.0-100.0); MEAN PLATELET VOLUME 9.1 fL (7.4-10.4); MONOCYTES 12.5 % (2-11); NEUTROPHILS 58.6 % (40-80); RBC 3.67 10x6/uL (4.20-6.10); RDW 15.9 % (11.5-14.5); WBC 8.3 10x3/uL (4.8-10.8)
[2019-03-31 04:20] LABS: PLATELET COUNT 149 10x3/uL (130-400)
[2019-03-31 04:25] LABS: INR 1.16 (0.85-1.17); PROTIME 14.3 SECONDS (11.6-15.0)
[2019-03-31 04:26] LABS: APTT 34.4 SECONDS (22.8-39.4)
[2019-03-31 04:42] LABS: ALBUMIN 2.7 g/dL (3.4-5.0); ANION GAP 7.3 mmol/L (8-16); BILIRUBIN - TOTAL 1.13 mg/dL (0.2-1.3); CALCIUM 9.9 mg/dL (8.5-10.1); CARBON DIOXIDE 30.3 mmol/L (21.0-32.0); CREATININE - SERUM 1.1 mg/dL (0.6-1.3); MAGNESIUM - SERUM 1.9 mg/dL (1.8-2.4); POTASSIUM - SERUM 3.6 mmol/L (3.5-5.1); PROTEIN - SERUM 6.8 g/dL (6.4-8.2)
[2019-03-31 09:40] VITALS: BP 173/78
[2019-03-31 13:34] VITALS: BMI 41.8
[2019-03-31 13:55] VITALS: BP 166/70
[2019-03-31 16:04] VITALS: BP 151/53; Ht 180.3 cm; Wt 136.4 kg
[2019-03-31 17:39] VITALS: BP 145/64
[2019-03-31 20:34] VITALS: BP 151/70
[2019-04-01 05:58] VITALS: BP 159/55
[2019-04-01 08:23] VITALS: BP 164/68
[2019-04-01 10:28] LABS: BASOPHILS 0.6 % (0-2); EOSINOPHILS 8.3 % (0-7); HEMATOCRIT 32.6 % (42.0-54.0); HEMOGLOBIN 10.4 g/dL (13.5-17.5); IMMATURE GRANULOCYTES 1.8 % (0-5); LYMPHOCYTES 23.4 % (15-50); MCH 31.1 pg (26.0-34.0); MCHC 31.9 g/dL (31.0-37.0); MCV 97.6 fL (80.0-100.0); MEAN PLATELET VOLUME 9.3 fL (7.4-10.4); NEUTROPHILS 52.9 % (40-80); PLATELET COUNT 142 10x3/uL (130-400); RBC 3.34 10x6/uL (4.20-6.10); RDW 16.2 % (11.5-14.5)
[2019-04-01 10:44] LABS: ALBUMIN 2.5 g/dL (3.4-5.0); ANION GAP 8.4 mmol/L (8-16); BILIRUBIN - TOTAL 0.65 mg/dL (0.2-1.3); CALCIUM 9.6 mg/dL (8.5-10.1); CARBON DIOXIDE 28.3 mmol/L (21.0-32.0); CREATININE - SERUM 1.2 mg/dL (0.6-1.3); POTASSIUM - SERUM 3.7 mmol/L (3.5-5.1); PROTEIN - SERUM 6.1 g/dL (6.4-8.2)
[2019-04-01 11:58] VITALS: BP 145/71
--- NOTE | 2019-04-01 15:47 | MORECARE ---
CASE MANAGEMENT DISCHARGE SUMMARY PATIENT: TRUPTI GRIFFITH UNIT: [id number] ADM DATE: 03/31/19 AGE: 68 : 46 SEX: M ROOM/BED: D.2214 AUTHOR: ELAYNE MINA PHYSICIAN: REFERRING PHYSICIAN: ЕКАТЕРИНА GIBBS MD DATE OF SERVICE: 04/01/19 Discharge Plan Patient Name: TRUPTI GRIFFITH [facility] [facility] 1950 Planned Disposition: [facility] Anticipated Discharge Date: Discharge Date: Expected LOS: Initial Reviewer: [email or web address] Initial Review Date: 03/31/2019 Generated: 04/01/19 4:47 pm DCPIA - Discharge Planning Initial Assessment Updated by [email or web address]: Ellen Agudelo on 04/01/19 3:45 pm * Is the patient Alert and Oriented? Yes * How many steps to enter\exit or inside your home? * PCP INÉS * Pharmacy [facility] * Preadmission Environment Home with Family * ADLs Partial Dependent * Partial ADLs (Assistance needed) Ambulation Bathing Medication Management Toileting * List name and contact numbers for known caregivers / representatives who currently or will assist patient after discharge: VERITO SERRANO [phone] * Verbal permission to speak to the caregivers and representatives has been obtained from the patient. Yes * Community resources currently utilized Home Health * Please name any agencies selected above. ? [facility] * Additional services required to return to the preadmission environment? Yes * Can the patient safely return to the preadmission environment? No * Has this patient been hospitalized within the prior 30 days at any hospital? Yes Patient Name: TRUPTI GRIFFITH Page [phone] at 1547 All edits/amendments must be made on the electronic document DICTATION DATE: 04/01/191546 LEARNING SUPPORT SPECIALIST: BARRON 04/01/191546 RPT#: [id number] DC DATE: STATUS: ADM IN [facility] [address] [place] [address] END OF REPORT
--- NOTE | 2019-04-01 15:58 | MORECARE ---
CASE MANAGEMENT DISCHARGE SUMMARY PATIENT: TRUPTI GRIFFITH UNIT: [id number] ADM DATE: 03/31/19 AGE: 68 : 48 SEX: M ROOM/BED: D.2214 AUTHOR: KEELEY,DOC PHYSICIAN: REFERRING PHYSICIAN: ЕКАТЕРИНА GIBBS MD DATE OF SERVICE: 04/01/19 Discharge Plan Patient Name: TRUPTI GRIFFITH Facility: [facility]:[place] : 1950 Planned Disposition: Half-Way Facility Anticipated Discharge Date: Discharge Date: Expected LOS: Initial Reviewer: [id number] Initial Review Date: 03/31/2019 Generated: 04/01/19 4:57 pm Comments DCP- Discharge Planning Updated by [id number]: Ellen Agudelo on 04/01/19 2:[address] Patient Name: TRUPTI GRIFFITH Admission Status: ER Accout number: [id number] Admission Date: 03-31-2019 : 1950 Admission Diagnosis: Attending: ЕКАТЕРИНА GIBBS Current LOS: 1 Anticipated DC Date: Planned Disposition: Half-Way Facility Primary Insurance: [employer] CHOICE PPO MCR ADVANT Discharge Planning Comments: CM met with patient to complete initial dc planning assessment. CM educated patient on the CM role and verbal consent given by patient to complete assessment. Patient lives at home with his step daughter and son in law. He had just been discharged from [facility] [place] where he fell at home. He was set up with , but was admitted to the hospital before they came. He stated that he feels like [facility] might be more permanent and safer place for him. I will call [facility] and send clincials to them. Patient stated that his granddaughter has already been in contact with [facility]. IMM served and explained & AMRIT for [facility] placed in chart. Patient denied known discharge needs at this time. CM will continue to follow and will assist as needed with dc plans/needs. Popcorn Vendor: Ellen Agudelo DCPIA - Discharge Planning Initial Assessment Updated by [email or web address]: Ellen Agudelo on 04/01/19 3:45 pm * Is the patient Alert and Oriented? Yes * How many steps to enter\exit or inside your home? * PCP CONTE * Pharmacy [facility] [address] * Preadmission Environment Home with Family * ADLs Partial Dependent * Partial ADLs (Assistance needed) Ambulation Bathing Medication Management Toileting * List name and contact numbers for known caregivers / representatives who currently or will assist patient after discharge: VERITO SERRANO [phone] * Verbal permission to speak to the caregivers and representatives has been obtained from the patient. Yes * Community resources currently utilized Home Health * Please name any agencies selected above. ? [facility] * Additional services required to return to the preadmission environment? Yes * Can the patient safely return to the preadmission environment? No * Has this patient been hospitalized within the prior 30 days at any hospital? Yes External Providers External Provider: [facility] Next Contact Date: Service Request Date: Service Type: Resolution: Reviewer: Comments: Coverage Notice Reviewer: [id number] Walter Agudelo Notice Issued Date-Time: 04/01/2019 15:00 Notice Type: IM Discharge Notice Notice Delivered To: Patient Relationship to Patient: Environmental Property Assessor Name: Delivery Method: HAND - Hand Delivered Destiny Days: Prior Verbal Notification: Recipient Understood Notice: Yes Recipient Signature: Yes Med Rec Note Co-signed by Attending: Coverage Notice Comment: Reviewer: [id number] Walter Agudelo Notice Issued Date-Time: 04/01/2019 15:00 Notice Type: Patient Choice Letter Notice Delivered To: Patient Relationship to Patient: Environmental Property Assessor Name: Delivery Method: HAND - Hand Delivered Destiny Days: Prior Verbal Notification: Recipient Understood Notice: Yes Recipient Signature: Yes Med Rec Note Co-signed by Attending: Coverage Notice Comment: [facility] Last DP export: 04/01/19 2:47 p Patient Name: TRUPTI GRIFFITH Page [id number] at 1558 All edits/amendments must be made on the electronic document DICTATION DATE: 04/01/191556 SHOULDER PAD MOLDER: BARRON 04/01/191556 RPT#: [id number] DC DATE: STATUS: ADM IN [facility] [address] [place] [address] END OF REPORT
[2019-04-01 16:43] VITALS: BP 151/73
[2019-04-01 20:55] VITALS: BP 148/68
[2019-04-02 01:22] VITALS: BP 154/74
[2019-04-02 05:55] VITALS: BP 173/76
[2019-04-02 05:57] LABS: BASOPHILS 0.4 % (0-2); EOSINOPHILS 8.4 % (0-7); HEMATOCRIT 33.8 % (42.0-54.0); HEMOGLOBIN 10.8 g/dL (13.5-17.5); MCH 31.1 pg (26.0-34.0); MCV 97.4 fL (80.0-100.0); MEAN PLATELET VOLUME 9.9 fL (7.4-10.4); MONOCYTES 13.5 % (2-11); NEUTROPHILS 51.7 % (40-80); PLATELET COUNT 161 10x3/uL (130-400); RBC 3.47 10x6/uL (4.20-6.10); RDW 16.1 % (11.5-14.5); WBC 10.3 10x3/uL (4.8-10.8)
[2019-04-02 06:11] LABS: ALBUMIN 2.6 g/dL (3.4-5.0); ANION GAP 10.7 mmol/L (8-16); BILIRUBIN - TOTAL 0.81 mg/dL (0.2-1.3); CALCIUM 9.6 mg/dL (8.5-10.1); CARBON DIOXIDE 28.3 mmol/L (21.0-32.0); CREATININE - SERUM 1.1 mg/dL (0.6-1.3); PROTEIN - SERUM 6.5 g/dL (6.4-8.2)
[2019-04-02 09:45] VITALS: BP 161/77
[2019-04-02 14:12] VITALS: BP 164/69
[2019-04-02 17:22] VITALS: BP 164/73
[2019-04-02 20:51] VITALS: BP 174/75
[2019-04-03 01:35] VITALS: BP 171/74
[2019-04-03 05:45] LABS: BASOPHILS 0.5 % (0-2); EOSINOPHILS 8.1 % (0-7); HEMATOCRIT 32.6 % (42.0-54.0); HEMOGLOBIN 10.4 g/dL (13.5-17.5); IMMATURE GRANULOCYTES 2.5 % (0-5); LYMPHOCYTES 22.8 % (15-50); MCH 30.8 pg (26.0-34.0); MCHC 31.9 g/dL (31.0-37.0); MCV 96.4 fL (80.0-100.0); MEAN PLATELET VOLUME 9.5 fL (7.4-10.4); MONOCYTES 13.2 % (2-11); NEUTROPHILS 52.9 % (40-80); PLATELET COUNT 169 10x3/uL (130-400); RBC 3.38 10x6/uL (4.20-6.10); RDW 15.9 % (11.5-14.5)
[2019-04-03 06:31] VITALS: BP 167/69
[2019-04-03 06:44] LABS: ALBUMIN 2.4 g/dL (3.4-5.0); ANION GAP 10.3 mmol/L (8-16); BILIRUBIN - TOTAL 0.72 mg/dL (0.2-1.3); CALCIUM 9.4 mg/dL (8.5-10.1); CARBON DIOXIDE 27.9 mmol/L (21.0-32.0); CREATININE - SERUM 1.1 mg/dL (0.6-1.3); POTASSIUM - SERUM 4.2 mmol/L (3.5-5.1); PROTEIN - SERUM 6.4 g/dL (6.4-8.2)
[2019-04-03 10:10] VITALS: BP 172/72
--- NOTE | 2019-04-03 12:27 | MORECARE ---
CASE MANAGEMENT DISCHARGE SUMMARY PATIENT: TRUPTI GRIFFITH UNIT: [id number] ADM DATE: 03/31/19 AGE: 68 : 48 SEX: M ROOM/BED: D.2214 AUTHOR: ELAYNE MINA PHYSICIAN: REFERRING PHYSICIAN: ЕКАТЕРИНА GIBBS MD DATE OF SERVICE: 04/03/19 Discharge Plan Patient Name: TRUPTI GRIFFITH Facility: [facility]:[place] : 1950 Planned Disposition: Alf Facility Anticipated Discharge Date: Discharge Date: Expected LOS: Initial Reviewer: [email or web address] Initial Review Date: 03/31/2019 Generated: 04/03/19 1:27 pm Comments DCP- Discharge Planning Updated by [id number]: Ellen Agudelo on 04/03/19 11:[address] updated clinical sent to [facility], spoke with Kaylah will wait for approval DCP- Discharge Planning Updated by [email or web address]: Ellen Agudelo on 04/01/19 2:[address] Patient Name: TRUPTI GRIFFITH Admission Status: ER Accout number: [id number] Admission Date: 03-31-2019 : 1950 Admission Diagnosis: Attending: ЕКАТЕРИНА GIBBS Current LOS: 1 Anticipated DC Date: Planned Disposition: Alf Facility Primary Insurance: [employer] CHOICE PPO MCR ADVANT Discharge Planning Comments: CM met with patient to complete initial dc planning assessment. CM educated patient on the CM role and verbal consent given by patient to complete assessment. Patient lives at home with his step daughter and son in law. He had just been discharged from [place] where he fell at home. He was set up with , but was admitted to the hospital before they came. He stated that he feels like [place] might be more permanent and safer place for him. I will call [facility] and send clincials to them. Patient stated that his granddaughter has already been in contact with [facility]. IMM served and explained & AMRIT for [place] placed in chart. Patient denied known discharge needs at this time. CM will continue to follow and will assist as needed with dc plans/needs. Tower Climber: Ellen Agudelo DCPIA - Discharge Planning Initial Assessment Updated by [id number]: Ellen Agudelo on 04/01/19 3:45 pm * Is the patient Alert and Oriented? Yes * How many steps to enter\exit or inside your home? * PCP [facility] * Pharmacy [facility] [address] * Preadmission Environment Home with Family * ADLs Partial Dependent * Partial ADLs (Assistance needed) Ambulation Bathing Medication Management Toileting * List name and contact numbers for known caregivers / representatives who currently or will assist patient after discharge: GAGANDEEPSONAL MAGGIE [phone] * Verbal permission to speak to the caregivers and representatives has been obtained from the patient. Yes * Community resources currently utilized Home Health * Please name any agencies selected above. ? [facility] * Additional services required to return to the preadmission environment? Yes * Can the patient safely return to the preadmission environment? No * Has this patient been hospitalized within the prior 30 days at any hospital? Yes Coverage Notice Reviewer: [id number] Walter Agudelo Notice Issued Date-Time: 04/01/2019 15:00 Notice Type: IM Discharge Notice Notice Delivered To: Patient Relationship to Patient: Technicians And Trades Workers Name: Delivery Method: HAND - Hand Delivered Destiny Days: Prior Verbal Notification: Recipient Understood Notice: Yes Recipient Signature: Yes Med Rec Note Co-signed by Attending: Coverage Notice Comment: Reviewer: [id number] Walter Agudelo Notice Issued Date-Time: 04/01/2019 15:00 Notice Type: Patient Choice Letter Notice Delivered To: Patient Relationship to Patient: Technicians And Trades Workers Name: Delivery Method: HAND - Hand Delivered Destiny Days: Prior Verbal Notification: Recipient Understood Notice: Yes Recipient Signature: Yes Med Rec Note Co-signed by Attending: Coverage Notice Comment: [facility] Last DP export: 04/01/19 2:57 p Patient Name: TRUPTI GRIFFITH Page [phone] at 1227 All edits/amendments must be made on the electronic document DICTATION DATE: 04/03/19 1227 REGIONAL BRANCH MANAGER: BARRON 04/03/19 1227 RPT#: [id number] DC DATE: STATUS: ADM IN [facility] [address] [place] [address] END OF REPORT
[2019-04-03 14:30] VITALS: BP 182/85
--- NOTE | 2019-04-03 15:55 | MORECARE ---
CASE MANAGEMENT DISCHARGE SUMMARY PATIENT: TRUPTI GRIFFITH UNIT: [id number] ADM DATE: 03/31/19 AGE: 68 : 48 SEX: M ROOM/BED: D.2214 AUTHOR: KEELEY,DOC PHYSICIAN: REFERRING PHYSICIAN: ЕКАТЕРИНА GIBBS MD DATE OF SERVICE: 04/03/19 Discharge Plan Patient Name: TRUPTI GRIFFITH Facility: [facility]:[place] : 1950 Planned Disposition: Correction Facility Anticipated Discharge Date: Discharge Date: Expected LOS: Initial Reviewer: [email or web address] Initial Review Date: 03/31/2019 Generated: 04/03/19 4:55 pm DCP- Discharge Planning Updated by [email or web address]: Ellen Agudelo on 04/03/19 2:[address] [facility] CALLED AT 1445 TO LET ME KNOW THAT THEY ARE STILL WAITING ON AUTH FROM INSURANCE TO TAKE HIM FOR REHAB. WE WILL CONTINUE TO WAIT DCP- Discharge Planning Updated by [email or web address]: Ellen Agudelo on 04/03/19 11:[address] updated clinical sent to [facility], spoke with Alisa will wait for approval DCP- Discharge Planning Updated by [email or web address]: Ellen Agudelo on 04/01/19 2:[address] Patient Name: TRUPTI GRIFFITH Admission Status: ER Accout number: [id number] Admission Date: 03-31-2019 : 1950 Admission Diagnosis: Attending: ЕКАТЕРИНА GIBBS Current LOS: 1 Anticipated DC Date: Planned Disposition: Correction Facility Primary Insurance: [employer] CHOICE PPO MCR ADVANT Discharge Planning Comments: CM met with patient to complete initial dc planning assessment. CM educated patient on the CM role and verbal consent given by patient to complete assessment. Patient lives at home with his step daughter and son in law. He had just been discharged from [place] where he fell at home. He was set up with , but was admitted to the hospital before they came. He stated that he feels like [place] might be more permanent and safer place for him. I will call [place] and send clincials to them. Patient stated that his granddaughter has already been in contact with [place]. IMM served and explained & MARIA EUGENIA for [place] placed in chart. Patient denied known discharge needs at this time. CM will continue to follow and will assist as needed with dc plans/needs. Continuity Editor: Ellen Agudelo DCPIA - Discharge Planning Initial Assessment Updated by [email or web address]: Ellen Agudelo on 04/01/19 3:45 pm * Is the patient Alert and Oriented? Yes * How many steps to enter\exit or inside your home? * PCP [facility] * [facility] [address] * Preadmission Environment Home with Family * ADLs Partial Dependent * Partial ADLs (Assistance needed) Ambulation Bathing Medication Management Toileting * List name and contact numbers for known caregivers / representatives who currently or will assist patient after discharge: VERITO SERRANO [phone] * Verbal permission to speak to the caregivers and representatives has been obtained from the patient. Yes * Community resources currently utilized Home Health * Please name any agencies selected above. ? [facility] * Additional services required to return to the preadmission environment? Yes * Can the patient safely return to the preadmission environment? No * Has this patient been hospitalized within the prior 30 days at any hospital? Yes Coverage Notice Reviewer: [email or web address] Walter Agudelo Notice Issued Date-Time: 04/01/2019 15:00 Notice Type: IM Discharge Notice Notice Delivered To: Patient Relationship to Patient: Edge Bonder Name: Delivery Method: HAND - Hand Delivered Destiny Days: Prior Verbal Notification: Recipient Understood Notice: Yes Recipient Signature: Yes Med Rec Note Co-signed by Attending: Coverage Notice Comment: Reviewer: [id number] Walter Agudelo Notice Issued Date-Time: 04/01/2019 15:00 Notice Type: Patient Choice Letter Notice Delivered To: Patient Relationship to Patient: Edge Bonder Name: Delivery Method: HAND - Hand Delivered Destiny Days: Prior Verbal Notification: Recipient Understood Notice: Yes Recipient Signature: Yes Med Rec Note Co-signed by Attending: Coverage Notice Comment: [facility] Last DP export: 04/03/19 11:27 a Patient Name: TRUPTI GRIFFITH Page [phone] at 8007 All edits/amendments must be made on the electronic document DICTATION DATE: 04/03/[address] MAINTENANCE CREW WORKER: BARRON 04/03/19 0414 RPT#: [id number] DC DATE: STATUS: ADM IN [facility] [address] [place] [address] END OF REPORT
[2019-04-03 19:30] LABS: BASOPHILS 0.5 % (0-2); EOSINOPHILS 6.8 % (0-7); HEMATOCRIT 34.9 % (42.0-54.0); HEMOGLOBIN 11.4 g/dL (13.5-17.5); IMMATURE GRANULOCYTES 2.2 % (0-5); LYMPHOCYTES 21.3 % (15-50); MCH 31.1 pg (26.0-34.0); MCHC 32.7 g/dL (31.0-37.0); MCV 95.4 fL (80.0-100.0); MEAN PLATELET VOLUME 9.4 fL (7.4-10.4); MONOCYTES 11.8 % (2-11); NEUTROPHILS 57.4 % (40-80); PLATELET COUNT 166 10x3/uL (130-400); RBC 3.66 10x6/uL (4.20-6.10); RDW 15.8 % (11.5-14.5); WBC 11.4 10x3/uL (4.8-10.8)
[2019-04-03 19:44] LABS: ALBUMIN 2.7 g/dL (3.4-5.0); ALKALINE PHOSPHATASE 71 U/L (46-116); ALT (SGPT) 24 U/L (10-68); BILIRUBIN - TOTAL 1.01 mg/dL (0.2-1.3); CALC OSMOLALITY 279 mosm/kg (275-300); CALCIUM 9.5 mg/dL (8.5-10.1); CARBON DIOXIDE 27.7 mmol/L (21.0-32.0); CHLORIDE - SERUM 101 mmol/L (98-107); GLUCOSE 180 mg/dL (74-106); POTASSIUM - SERUM 4.6 mmol/L (3.5-5.1); PROTEIN - SERUM 6.3 g/dL (6.4-8.2); SODIUM 136 mmol/L (136-145); UREA NITROGEN 20 mg/dL (7-18); eGFR NON AFRICAN AMERICAN 78 mL/min (90-120)
[2019-04-03 19:58] VITALS: BP 177/82
[2019-04-03 23:56] LABS: APPEARANCE CLEAR (CLEAR); BILIRUBIN NEGATIVE (NEGATIVE); COLOR YELLOW (YELLOW); GLUCOSE NEGATIVE (NEGATIVE); KETONE NEGATIVE (NEGATIVE); NITRITE NEGATIVE (NEGATIVE); PROTEIN TRACE mg/dL (NEGATIVE); RED CELLS - URINE 0-5 /hpf (0-5); WHITE CELLS - URINE NSEEN /hpf (0-5)
[2019-04-04] VITALS: BP 135/63
[2019-04-04 04:00] VITALS: BP 179/78
[2019-04-04 04:45] LABS: BASOPHILS 0.5 % (0-2); EOSINOPHILS 7.3 % (0-7); HEMATOCRIT 33.4 % (42.0-54.0); HEMOGLOBIN 10.8 g/dL (13.5-17.5); IMMATURE GRANULOCYTES 2.4 % (0-5); LYMPHOCYTES 20.3 % (15-50); MCH 30.8 pg (26.0-34.0); MCHC 32.3 g/dL (31.0-37.0); MCV 95.2 fL (80.0-100.0); MEAN PLATELET VOLUME 9.3 fL (7.4-10.4); MONOCYTES 12.1 % (2-11); NEUTROPHILS 57.4 % (40-80); PLATELET COUNT 176 10x3/uL (130-400); RBC 3.51 10x6/uL (4.20-6.10); RDW 15.7 % (11.5-14.5)
[2019-04-04 05:07] LABS: ALBUMIN 2.5 g/dL (3.4-5.0); ANION GAP 10.1 mmol/L (8-16); BILIRUBIN - TOTAL 1.01 mg/dL (0.2-1.3); CALCIUM 9.6 mg/dL (8.5-10.1); CARBON DIOXIDE 28.6 mmol/L (21.0-32.0); CREATININE - SERUM 1.1 mg/dL (0.6-1.3); POTASSIUM - SERUM 4.7 mmol/L (3.5-5.1); PROTEIN - SERUM 6.5 g/dL (6.4-8.2)
[2019-04-04 08:59] VITALS: BP 179/92
[2019-04-04] MEDS ORDERED: COLACE100 MG PO (11:56)
[2019-04-04] MEDS ORDERED: TESSALON PERLE100 MG PO (11:56)
[2019-04-04] MEDS ORDERED: NYSTATIN1 PWD TOPICAL (11:57)
[2019-04-04] MEDS ORDERED: MIRALAX17 GM PO (11:57)
[2019-04-04] MEDS ORDERED: HYDROCODON-ACE1 EAC2 PO (12:00)
--- NOTE | 2019-04-04 12:34 | MORECARE ---
CASE MANAGEMENT DISCHARGE SUMMARY PATIENT: TRUPTI GRIFFITH UNIT: [id number] ADM DATE: 03/31/19 AGE: 68 : 48 SEX: M ROOM/BED: D.2214 AUTHOR: ELAYNE MINA PHYSICIAN: REFERRING PHYSICIAN: ЕКАТЕРИНА GIBBS MD DATE OF SERVICE: 04/04/19 Discharge Plan Patient Name: TRUPTI GRIFFITH Facility: [facility]:[place] : 1950 Planned Disposition: Long Term Facility Anticipated Discharge Date: Discharge Date: Expected LOS: Initial Reviewer: [email or web address] Initial Review Date: 03/31/2019 Generated: 04/04/19 1:33 pm Comments DCP- Discharge Planning Updated by [email or web address]: Ellen Agudelo on 04/04/19 11:[address] [facility] B[facility] THEY WILL PICK HIM UP AT 1400 TODAY IMM SERVED AND EXPLAINED I CALLED AND SPOKE WITH GLO TO LET HER KNOW. CM WILL CONTINUE TO FOLLOW AND ASSIST WITH DC PLANNING NEEDED DCP- Discharge Planning Updated by [email or web address]: Ellen Agudelo on 04/03/19 2:[address] [facility] CALLED AT 1445 TO LET ME KNOW THAT THEY ARE STILL WAITING ON AUTH FROM INSURANCE TO TAKE HIM FOR REHAB. WE WILL CONTINUE TO WAIT DCP- Discharge Planning Updated by [email or web address]: Ellen Agudelo on 04/03/19 11:[address] updated clinical sent to [facility], spoke with Alisa will wait for approval DCP- Discharge Planning Updated by [id number]: Ellen Agudelo on 04/01/19 2:[address] Patient Name: TRUPTI GRIFFITH Admission Status: ER Accout number: [id number] Admission Date: 03-31-2019 : 1950 Admission Diagnosis: Attending: ЕКАТЕРИНА GIBBS Current LOS: 1 Anticipated DC Date: Planned Disposition: Long Term Facility Primary Insurance: [employer] CHOICE PPO MCR ADVANT Discharge Planning Comments: CM met with patient to complete initial dc planning assessment. CM educated patient on the CM role and verbal consent given by patient to complete assessment. Patient lives at home with his step daughter and son in law. He had just been discharged from [place] where he fell at home. He was set up with , but was admitted to the hospital before they came. He stated that he feels like [place] might be more permanent and safer place for him. I will call [facility] and send clincials to them. Patient stated that his granddaughter has already been in contact with [facility]. IMM served and explained & MARIA EUGENIA for [facility] placed in chart. Patient denied known discharge needs at this time. CM will continue to follow and will assist as needed with dc plans/needs. Master Control Operator: Ellen Agudelo DCPIA - Discharge Planning Initial Assessment Updated by [email or web address]: Ellen Agudelo on 04/01/19 3:45 pm * Is the patient Alert and Oriented? Yes * How many steps to enter\exit or inside your home? * PCP [facility] * [facility] [address] * Preadmission Environment Home with Family * ADLs Partial Dependent * Partial ADLs (Assistance needed) Ambulation Bathing Medication Management Toileting * List name and contact numbers for known caregivers / representatives who currently or will assist patient after discharge: VERITO SERRANO [phone] * Verbal permission to speak to the caregivers and representatives has been obtained from the patient. Yes * Community resources currently utilized Home Health * Please name any agencies selected above. ? [facility] * Additional services required to return to the preadmission environment? Yes * Can the patient safely return to the preadmission environment? No * Has this patient been hospitalized within the prior 30 days at any hospital? Yes Coverage Notice Reviewer: [id number] Walter Agudelo Notice Issued Date-Time: 04/01/2019 15:00 Notice Type: IM Discharge Notice Notice Delivered To: Patient Relationship to Patient: Board Filler Name: Delivery Method: HAND - Hand Delivered Destiny Days: Prior Verbal Notification: Recipient Understood Notice: Yes Recipient Signature: Yes Med Rec Note Co-signed by Attending: Coverage Notice Comment: Reviewer: [id number] Walter Agudelo Notice Issued Date-Time: 04/01/2019 15:00 Notice Type: Patient Choice Letter Notice Delivered To: Patient Relationship to Patient: Board Filler Name: Delivery Method: HAND - Hand Delivered Destiny Days: Prior Verbal Notification: Recipient Understood Notice: Yes Recipient Signature: Yes Med Rec Note Co-signed by Attending: Coverage Notice Comment: [facility] Last DP export: 04/03/19 2:55 p Patient Name: TRUPTI GRIFFITH Page [phone] at 1234 All edits/amendments must be made on the electronic document DICTATION DATE: 04/04/19 1233 JUNIOR LINUX SYSTEMS ADMINISTRATOR: BARRON 04/04/19 1233 RPT#: [id number] DC DATE: STATUS: ADM IN [facility] [address] [place] [address] END OF REPORT
[2019-04-04 13:48] VITALS: BP 164/83
== END 2019-04-04 14:27 | DRG 562 ==
LOC: D.ER 03:35 → D.MS 05:15
PROVIDERS: Family Medicine; ADMIT Internal Medicine Nephrology; ATTEND Internal Medicine Nephrology
DX: S82.401A Unspecified fracture of shaft of right fibula, initial encounter for closed fracture (principal); R53.2 Functional quadriplegia; Z68.41 Body mass index [BMI] 40.0-44.9, adult; S92.301A Fracture of unspecified metatarsal bone(s), right foot, initial encounter for closed fracture; W19.XXXA Unspecified fall, initial encounter; E11.9 Type 2 diabetes mellitus without complications; I48.91 Unspecified atrial fibrillation; I12.9 Hypertensive chronic kidney disease with stage 1 through stage 4 chronic kidney disease, or unspecified chronic kidney disease; E11.22 Type 2 diabetes mellitus with diabetic chronic kidney disease; N18.3 Chronic kidney disease, stage 3 (moderate); E66.01 Morbid (severe) obesity due to excess calories

== ENCOUNTER 2019-04-10 08:09 | Emergency (ER) | payer MEDICARE ==
[~2019-04-10] VITALS: Ht 180.3 cm; Wt 136.4 kg
[~2019-04-10 08:09] MED LIST changes: +HYDROCODON-ACE1 EAC2 PO; +NYSTATIN1 PWD TOPICAL; +TESSALON PERLE100 MG PO
[2019-04-10 08:11] VITALS: BP 147/65; Ht 180.3 cm; Wt 136.4 kg
--- NOTE | 2019-04-10 08:48 | NUR ---
According to the suicide assessment the patient rates a low score. He does admit to being frustrated about his healing, but because he has a spiritual belief he would never harm himself. He does not require 1:1 observation at this time.
[2019-04-10 08:58] LABS: EOSINOPHILS 7.2 % (0-7); HEMATOCRIT 36.1 % (42.0-54.0); HEMOGLOBIN 11.7 g/dL (13.5-17.5); IMMATURE GRANULOCYTES 5.3 % (0-5); LYMPHOCYTES 22.3 % (15-50); MCH 30.9 pg (26.0-34.0); MCHC 32.4 g/dL (31.0-37.0); MCV 95.3 fL (80.0-100.0); MEAN PLATELET VOLUME 9.1 fL (7.4-10.4); MONOCYTES 10.7 % (2-11); NEUTROPHILS 53.5 % (40-80); RBC 3.79 10x6/uL (4.20-6.10); WBC 12.5 10x3/uL (4.8-10.8)
[2019-04-10 09:01] LABS: PLATELET COUNT 275 10x3/uL (130-400)
[2019-04-10 09:02] LABS: ALBUMIN 2.6 g/dL (3.4-5.0); ANION GAP 8.7 mmol/L (8-16); BILIRUBIN - TOTAL 0.75 mg/dL (0.2-1.3); CALCIUM 10.4 mg/dL (8.5-10.1); CARBON DIOXIDE 29.6 mmol/L (21.0-32.0); CREATININE - SERUM 1.2 mg/dL (0.6-1.3); MAGNESIUM - SERUM 2.2 mg/dL (1.8-2.4); POTASSIUM - SERUM 4.3 mmol/L (3.5-5.1)
[2019-04-10 10:01] LABS: APPEARANCE HAZY (CLEAR); COLOR YELLOW (YELLOW); NITRITE NEGATIVE (NEGATIVE)
[2019-04-10 10:02] LABS: BACTERIA FEW /hpf (NONE SEEN); BILIRUBIN NEGATIVE (NEGATIVE); EPITHELIAL CELLS OCC /hpf (0-5); GLUCOSE NEGATIVE (NEGATIVE); KETONE NEGATIVE (NEGATIVE); MUCUS <1+ /lpf (NONE SEEN); PROTEIN 1+ mg/dL (NEGATIVE); RED CELLS - URINE 0-5 /hpf (0-5); UROBILINOGEN NORMAL (NORMAL); WHITE CELLS - URINE 0-5 /hpf (0-5)
[2019-04-10 10:32] LABS: UDS - AMPHET NEGATIVE QUAL (NEGATIVE); UDS - BARB NEGATIVE QUAL (NEGATIVE); UDS - BENZO NEGATIVE QUAL (NEGATIVE); UDS - COCAINE NEGATIVE QUAL (NEGATIVE); UDS - OPIATE POSITIVE QUAL (NEGATIVE); UDS - PCP NEGATIVE QUAL (NEGATIVE); UDS - THC NEGATIVE QUAL (NEGATIVE)
[2019-04-10] MEDS ORDERED: MERREM 1 GM/NS 11 G1 IV (11:07)
== END 2019-04-10 12:04 ==
LOC: D.ER 08:09
PROVIDERS: Family Medicine
DX: N39.0 Urinary tract infection, site not specified (principal)

== ENCOUNTER → 2019-04-16 15:12 | Outpatient (CLI) | payer MEDICARE ==
[2019-04-10 08:11] VITALS: BMI 41.9
[~2019-04-16 15:12] MED LIST changes: +MERREM 1 GM/NS 11 G1 IV
== END | disposition home or self-care (01) ==
LOC: D.CT 15:12
PROVIDERS: ATTEND Family Medicine
DX: R41.841 Cognitive communication deficit (principal)